=== PATIENT | female | born 1990 | race African-American/Black ===

== ENCOUNTER 2023-09-12 16:18 | Emergency (ER) | payer OTHER, SELFPAY ==
[2023-09-12 16:38] VITALS: BP 168/103; PULSE 100; RESP 18; TEMP 37.9; O2SAT 97; BMI 31.4
[2023-09-12 17:12] LABS: MANUAL DIFF FLAG NO
[2023-09-12 17:14] LABS: Basophils Percent Auto 0.6 % (0-2); Eosinophils Percent Auto 0.3 % (0-4); Hematocrit 34.9 % (37.0-47.0); Imm Gran Abs Auto 0.03 X10*3/uL (0.00-0.03); Imm Gran Pct Auto 0.4 % (0.0-0.4); Lymphocytes Percent Auto 13.8 % (20-40); Mean Corpuscular HGB Conc 31.5 g/dl (31.0-35.0); Mean Corpuscular Hemoglobin 18.7 pg (27.0-33.0); Mean Platelet Volume 9.6 fL (9.4-12.3); Monocytes Absolute Auto 1.1 X10*3/uL (0.1-1.2); Monocytes Percent Auto 14.8 % (2-11); Neutrophils Percent Auto 70.1 % (45-73); Platelet Count 336 X10*3/uL (160-400); Red Blood Count 5.88 X10*6/uL (4.20-5.50); Red Cell Distribution Width 19.9 % (11.0-16.0); White Blood Count 7.2 X10*3/uL (4.8-10.8)
[2023-09-12 17:20] LABS: Mean Corpuscular Volume 59.4 fL (80.0-98.0)
[2023-09-12 17:31] LABS: Alanine Aminotransferase 12 U/L (0-31); Alkaline Phosphatase 78 U/L (39-117); Anion Gap 13 (12-20); Aspartate Amino Transferase 17 U/L (5-31); Bilirubin Direct 0.1 mg/dL (0.0-0.5); Bilirubin Total 0.3 mg/dL (0.0-1.0); Blood Urea Nitrogen 6 mg/dL (9-16); Calcium 8.9 mg/dL (8.4-10.2); Carbon Dioxide 22 mmol/L (22-29); Chloride 106 mmol/L (96-108); Creatinine Clr Calc Pharmacy 121.8; Estimated Glomerular Filt Rate > 60; Glucose Random 108 mg/dL (60-115); Lipase 20 U/L (8-78); Potassium 3.3 mmol/L (3.3-5.1); Sodium 138 mmol/L (135-145); Total Protein 7.1 g/dL (6.5-8.0)
[2023-09-12 17:35] LABS: IDNOW Serial# 08D9AD1C; Strep A Nucleic Acid Negative (Negative)
[2023-09-12 17:58] LABS: Influenza A PCR NEGATIVE (Negative); Influenza B PCR NEGATIVE (Negative); Resp Syncy Virus RNA Qual PCR NEGATIVE (Negative); SARS COV2 PCR INHOUSE POSITIVE (Negative)
--- OUTSIDE RECORDS SUMMARY | 2023-09-12 18:22 | XMS_ITS | Continuity of Care Document ---
Author Organization [facility] ter Address [address] [place] [id number]- Care Team Providers Care Film Washer Name Role Phone Colby BRUMFIELD, Manny Valentine Primary Care Physicia n [facility]counter [facility] Date(s): 12/02/20 - 01/09/[address] [address]- Attending Physician: Fam DIALLO, Maurice Trivedi Admitting Physician: Fam DIALLO, Maurice Trivedi Referring Physician: Grace Ortiz DO Allergies, Adverse Reactions, Alerts Substance Reaction Severity Status NKA Active Immunizations Given and Recorded Vaccine Date Status Refusal Reason influenza virus vaccine, inactivated 12/20/18 Give n Tet/Diphth/Acel, Pertussis (oldterm) 1 02/17/12 Gi chelo influ virus vac, H1N1, live(oldterm) 2 02/27/09 Gi chelo Human Papillomavirus Vaccine 3 02/27/09 Given Human Papillomavirus Vaccine 4 11/28/08 Given Influenza Inactive (IM) (oldterm) 5 11/28/08 Given Gardasil (oldterm) 6 07/06/08 Given Meningococcal Conjugate Vaccine 11/13/05 Given tetanus-diphtheria toxoids (Td) 08/24/02 Given Hepatitis B Vaccine (old term) 03/15/97 Given Hepatitis B Vaccine (old term) 06/09/96 Given Hepatitis B Vaccine (old term) 03/08/96 Given Haemophilus B Conj Vaccine (oldterm) 03/08/96 Give n Haemophilus B Conj Vaccine (oldterm) 02/16/94 Give n Haemophilus B Conj Vaccine (oldterm) 04/10/91 Give n Haemophilus B Conj Vaccine (oldterm) 01/20/91 Give n diphtheria/tetanus/pertussis, acel(DTaP) 4/4/96 Given diphtheria/tetanus/pertussis, acel(DTaP) 05/06/94 Given diphtheria/tetanus/pertussis, acel(DTaP) 02/16/94 Given diphtheria/tetanus/pertussis, acel(DTaP) 04/10/91 Given diphtheria/tetanus/pertussis, acel(DTaP) 01/20/91 Given Measles/Mumps/Rubella Virus Vaccine 01/06/95 Given Measles/Mumps/Rubella Virus Vaccine 02/16/94 Given Poliovirus Vaccine, Inactivated 05/06/94 Given Poliovirus Vaccine, Inactivated 02/16/94 Given Poliovirus Vaccine, Inactivated 04/10/91 Given Poliovirus Vaccine, Inactivated 01/20/91 Given Not Given Vaccine Date Status Refusal Reason pneumococcal 23-valent vaccine 05/04/20 Not Given Permanently Refused 1Admin Note: vis 03/31/11 2Admin Note: vis 2008 given 3Admin Note: vis dated 04/09/06 given 4Admin Note: vis dated 04/09/06 given 5Admin Note: vis 2008-12 given 6Admin Note: VIS 04/09/06 GIVEN Medications clindamycin 1% topical gel 1 application, Topically, 2 times a day, # 30 Gm, 0 Refills, Maintenance, 05/22/20 18:01:00 EDT, Gel, [facility], Partial fill upon patient request if the prescription is for a scheduleII opioid drug., 1 application Topically 2 times a... Start Date: 05/22/20 Stop Date: 05/27/20 Status: Ordered clobetasol 0.05% topical cream See Instructions, Please apply dialy to affected area, # 45 Gm, 1 Refills, Maintenance, 06/25/20 15:41:00 EDT, [facility]/pharmacy #[id number], Partial fill upon patient request if the prescription is for a schedule II opioid drug., Please apply dialy to affected... Start Date: 06/25/20 Status: Ordered ferrous sulfate 325 mg oral tablet 1 tablet = 325 mg, By Mouth, Every other day, # 90 tablet, 0 Refills, Maintenance, 12/18/20 2:31:00EDT, Tablet, [facility]/pharmacy #[id number], Partial fill upon patient request if the prescription is for a schedule II opioid drug., 175, cm, 12/18/20 0:43:00 EDT... Start Date: 12/18/20 Status: Ordered metroNIDAZOLE 500 mg oral tablet 1 tablet = 500 mg, By Mouth, Every 12 hours, # 14 tablet, 0 Refills, Maintenance, 06/26/20 15:21:00EDT, Tablet, [facility]/pharmacy #[id number], Partial fill upon patient request if the prescription is for a schedule II opioid drug., 175, cm, 06/25/20 15:06:00 ED... Start Date: 06/26/20 Stop Date: 07/03/20 Status: Ordered ProAir HFA 90 mcg/inh inhalation aerosol 2 puffs, Inhalation, Every 4 hours, PRN Wheezing/Shortness of Breath, # 1 each, 5 Refills, Maintenance, 05/04/20 10:23:00 EST, Aerosol, [facility], Partial fill upon patient request if the prescription is for a schedule II opioid drug.,... Start Date: 05/04/20 Stop Date: 10/31/20 Status: Ordered Provera 10 mg oral tablet 20 mg, 2, tablet, By Mouth, 3 times a day, # 84 tablet, Refills 0, Tot. Refills 0, Maintenance, 12/18/20 2:30:00 EDT, Route to Pharmacy Electronically, [facility]/pharmacy #[id number], Partial fill upon patient request if the prescription is for a schedule II opio... Start Date: 12/18/20 Stop Date: 01/01/21 Status: Ordered Provera 10 mg oral tablet 10 mg, 1, tablet, By Mouth, 2 times a day, # 20 tablet, Refills 0, Tot. Refills 0, Maintenance, 12/02/20 15:53:00 EDT, Route to Pharmacy Electronically, [facility]/pharmacy #[id number], Partial fill upon patient request if the prescription is for a schedule II opi... Start Date: 12/02/20 Stop Date: 12/12/20 Status: Ordered Symbicort 80mcg/4.5mcg Inhaler 2, puffs, Inhalation, 2 times a day, # 30 each, Refills 0, Tot. Refills 0, Maintenance, 05/04/20 10:25:00 EST, Aerosol, Route to Pharmacy Electronically, [id number], [facility], 175, cm, 05/04/20 8:13:00 Sed[facility] SALEH. Start Date: 05/04/20 Stop Date: 06/03/20 Status: Ordered Problem List Condition Effective Dates Status Health Status Inform ant Asthma(Confirmed) Active Constipation(Confirmed) Active Iron deficiency anemia(Confirmed) Active Sickle cell trait(Confirmed) Active Social History Social History Type Response Smoking Status Never smoker entered on: 04/01/17 Sex
--- OUTSIDE RECORDS SUMMARY | 2023-09-12 18:22 | XMS_ITS | Continuity of Care Document ---
Author Organization [facility] Address [address] [place] [address]- Care Team Providers Care Bank Officer Name Role Phone Colby BRUMFIELD, Manny Valentine Primary Care Physicia n Encounter [facility] Date(s): 12/22/21 - 01/21/[address] [address]- Allergies, Adverse Reactions, Alerts No Known Allergies Immunizations Given and Recorded Vaccine Date Status Refusal Reason influenza virus vaccine, inactivated 12/23/21 Give n influenza virus vaccine, inactivated 01/04/20 Brien rded influenza virus vaccine, inactivated 12/20/18 Give n SARS-CoV-2 mRNA (qbvdziz-nslc-bglei) vax 09/03/21 Recorded SARS-CoV-2 mRNA (ulzzkeo-tyfs-gevuh) vax 08/12/21 Recorded tetanus-diphtheria toxoids (Td) 09/20/16 Recorded tetanus-diphtheria toxoids (Td) 08/24/02 Given Tet/Diphth/Acel, Pertussis (oldterm) 1 02/17/12 Gi chelo influ virus vac, H1N1, live(oldterm) 2 02/27/09 Gi chelo Human Papillomavirus Vaccine 3 02/27/09 Given Human Papillomavirus Vaccine 4 11/28/08 Given Influenza Inactive (IM) (oldterm) 5 11/28/08 Given Gardasil (oldterm) 6 07/06/08 Given Meningococcal Conjugate Vaccine 11/13/05 Given Hepatitis B Vaccine (old term) 03/15/97 Given Hepatitis B Vaccine (old term) 06/09/96 Given Hepatitis B Vaccine (old term) 03/08/96 Given Haemophilus B Conj Vaccine (oldterm) 03/08/96 Give n Haemophilus B Conj Vaccine (oldterm) 02/16/94 Give n Haemophilus B Conj Vaccine (oldterm) 04/10/91 Give n Haemophilus B Conj Vaccine (oldterm) 01/20/91 Give n diphtheria/tetanus/pertussis, acel(DTaP) 06/10/95 Given diphtheria/tetanus/pertussis, acel(DTaP) 05/06/94 Given diphtheria/tetanus/pertussis, acel(DTaP) 02/16/94 Given diphtheria/tetanus/pertussis, acel(DTaP) 04/10/91 Given diphtheria/tetanus/pertussis, acel(DTaP) 01/20/91 Given Measles/Mumps/Rubella Virus Vaccine 01/06/95 Given Measles/Mumps/Rubella Virus Vaccine 02/16/94 Given Poliovirus Vaccine, Inactivated 05/06/94 Given Poliovirus Vaccine, Inactivated 02/16/94 Given Poliovirus Vaccine, Inactivated 04/10/91 Given Poliovirus Vaccine, Inactivated 01/20/91 Given Not Given Vaccine Date Status Refusal Reason influenza virus vaccine, inactivated 03/02/21 Not Given Patient Refuses pneumococcal 23-valent vaccine 05/04/20 Not Given Permanently Refused 1Admin Note: vis 03/31/11 2Admin Note: vis 2008 given 3Admin Note: vis dated 04/09/06 given 4Admin Note: vis dated 04/09/06 given 5Admin Note: vis 2008-12 given 6Admin Note: VIS 04/09/06 GIVEN Medications Blood Pressure Monitor See Instructions, # 1 each, Maintenance, check daily, 01/02/22 12:17:00 EDT, Supply Start Date: 01/02/22 Status: Ordered ferrous sulfate 325 mg oral tablet 1 tablet, By Mouth, Every other day, # 90 tablet, 0 Refills, [id number], 175, cm, 03/03/21 16:44:00 EST, Height, 84, kg, 03/01/21 15:38:00 EST, Dry Weight Start Date: 06/09/21 Status: Ordered metronidazole topical 0.75% gel with applicator 1 applicator, Vaginally, Daily at bedtime, for 5 days, # 70 Gm, 0 Refills, Acute 01/24/22 8:02:00 EST, 01/19/22 8:02:00 EST, Gel, [facility]/pharmacy #[id number], Partial fill upon patient request if the prescription is for a schedule II opioid drug., 1 applicator... Start Date: 01/19/22 Stop Date: 01/24/22 Status: Ordered ProAir HFA 90 mcg/inh inhalation aerosol 2 puffs, Inhalation, Every 4 hours, PRN Wheezing/Shortness of Breath, # 1 each, 5 Refills, Maintenance, 05/04/20 10:23:00 EST, Aerosol, [facility], Partial fill upon patient request if the prescription is for a schedule II opioid drug.,... Start Date: 05/04/20 Stop Date: 10/31/20 Status: Ordered Symbicort 80mcg/4.5mcg Inhaler 2, puffs, Inhalation, 2 times a day, # 30 each, Refills 0, Tot. Refills 0, Maintenance, 05/04/20 10:25:00 EST, Aerosol, Route to Pharmacy Electronically, [id number], [facility], 175, cm, 05/04/20 8:13:00 EST, He... Start Date: 05/04/20 Stop Date: 06/03/20 Status: Ordered Valtrex 500 mg oral tablet 500 mg, 1, tablet, By Mouth, 2 times a day, for 3 days, # 6 tablet, Refills 5, Tot. Refills 5, Acute 02/02/22 20:14:00 EST, 01/15/22 20:14:00 EST, Route to Pharmacy Electronically, [facility]/pharmacy #[id number], Partial fill upon patient request if the prescript... Start Date: 01/15/22 Stop Date: 02/02/22 Status: Ordered Problem List Condition Confirmation Course Effective Dates Status Health St [facility] Informant Asthma Confirmed Active Constipation Confirmed Active Genital herpes Confirmed Active Hypertension Confirmed Active Iron deficiency anemia Confirmed Active Obese class I Confirmed Active [facility] Care Management [facility] ShivaniRadha [phone] Confirmed Active Sickle cell trait Confirmed Active Social History Social History Type Response Smoking Status Never (less than 100 in lifetime) entered on: 03/01/21 Sex Patient Care team information Care Team Personnel Name: Isabella Phelan RN Position: [facility] Nurse Member Role: Primary Care Nurse Name: Davey Rojas RN Position: S RN Member Role: Primary Care Nurse Name: Manny Bowman NP Position: [facility] Associate Professional Member Role: PCP Address: Address: [address] [place] [address]- Name: Verna Mireles RN Position: S RN Member Role: Primary Care Nurse Care Team Related Persons Name: ROZ CALHOUN Address: home [address] [place] [address] Name: STEPHANIE MONSIVAIS Address: home UNKNOWN
--- OUTSIDE RECORDS SUMMARY | 2023-09-12 18:22 | XMS_ITS | Continuity of Care Document ---
Author Organization [facility] Address [address] [place] [address]- Care Team Providers Care Manager Research Name Role Phone Colby BRUMFIELD, Manny Valentine Primary Care Physicia n [facility] Date(s): 01/24/21 - 02/23/[address] [address]- Allergies, Adverse Reactions, Alerts Substance Reaction Severity [...] 0 Refills, Maintenance, 05/22/20 18:01:00 EDT, Gel, [facility], Partial fill upon patient request if the prescription is for a scheduleII opioid drug., 1 application Topically 2 times a... Start Date: 05/22/20 Stop Date: 05/27/20 Status: Ordered clobetasol 0.05% topical cream See Instructions, Please apply dialy to affected area, # 45 Gm, 1 Refills, Maintenance, 06/25/20 15:41:00 EDT, [facility]/pharmacy #[id number], Partial fill upon patient request if the prescription is for a schedule II opioid drug., Please apply dialy to affected... Start Date: 06/25/20 Status: Ordered ferrous sulfate 325 mg oral tablet 1 tablet = 325 mg, By Mouth, Every other day, # 90 tablet, 0 Refills, Maintenance, 12/18/20 2:31:00EDT, Tablet, [facility]/pharmacy #[id number], Partial fill upon patient request if the prescription is for a schedule II opioid drug., 175, cm, 12/18/20 0:43:00 EDT... Start Date: 12/18/20 Status: Ordered metroNIDAZOLE 500 mg oral tablet 1 tablet = 500 mg, By Mouth, Every 12 hours, # 14 tablet, 0 Refills, Maintenance, 06/26/20 15:21:00EDT, Tablet, [facility]/pharmacy #[id number], Partial fill upon patient request if the prescription is for a schedule II opioid drug., 175, cm, 06/25/20 15:06:00 ED... Start Date: 06/26/20 Stop Date: 07/03/20 Status: Ordered ProAir HFA 90 mcg/inh inhalation aerosol 2 puffs, Inhalation, Every 4 hours, PRN Wheezing/Shortness of Breath, # 1 each, 5 Refills, Maintenance, 05/04/20 10:23:00 EST, Aerosol, [facility], Partial fill upon patient request if the prescription is for a schedule II opioid drug.,... Start Date: 05/04/20 Stop Date: 10/31/20 Status: Ordered Provera 10 mg oral tablet 20 mg, 2, tablet, By Mouth, 3 times a day, # 84 tablet, Refills 0, Tot. Refills 0, Maintenance, 12/18/20 2:30:00 EDT, Route to Pharmacy Electronically, [facility]/pharmacy #[id number], Partial fill upon patient request if the prescription is for a schedule II opio... Start Date: 12/18/20 Stop Date: 01/01/21 Status: Ordered Provera 10 mg oral tablet 10 mg, 1, tablet, By Mouth, 2 times a day, # 20 tablet, Refills 0, Tot. Refills 0, Maintenance, 12/02/20 15:53:00 EDT, Route to Pharmacy Electronically, [facility]/pharmacy #[id number], Partial fill upon patient request if the prescription is for a schedule II opi... Start Date: 12/02/20 Stop Date: 12/12/20 Status: Ordered Symbicort 80mcg/4.5mcg Inhaler 2, puffs, Inhalation, 2 times a day, # 30 each, Refills 0, Tot. Refills 0, Maintenance, 05/04/20 10:25:00 EST, Aerosol, Route to Pharmacy Electronically, [id number], [facility], 175, cm, 05/04/20 8:13:00 Sed[facility] SALEH. Start Date: 05/04/20 Stop Date: 06/03/20 Status: Ordered Problem List Condition Effective Dates Status Health Status Inform ant Asthma(Confirmed) Active Constipation(Confirmed) Active Iron deficiency anemia(Confirmed) Active [facility] Care Management [facility] , Radha Medardo [phone](Confirmed) Active Sickle cell trait(Confirmed) Active Social History Social History Type Response Smoking Status Never smoker entered on: 04/01/17 Sex
--- OUTSIDE RECORDS SUMMARY | 2023-09-12 18:22 | XMS_ITS | Continuity of Care Document ---
Author Organization [facility] Address [address] [place] [address]- Care Team Providers Care Mortuary Operations Manager Name Role Phone Colby BRUMFIELD, Manny Valentine Primary Care Physicia n Encounter [facility] AC[facility] R [id number] Date(s): 08/10/22 - 09/09/[address] [address]- Encounter Diagnosis Psychosis 298.9(Discharge Diagnosis) - 04/13/13 Attending Physician: Admtr, Ar8 Allergies, Adverse Reactions, Alerts No Known Allergies Immunizations Given and Recorded Vaccine Date Status Refusal Reason SARS-CoV-2 mRNA (tlagvnc-snat-zfxqp) vax 1 12/25/21 Recorded SARS-CoV-2 mRNA (sdkvmac-azac-hbplr) vax 09/03/21 Recorded SARS-CoV-2 mRNA (uxzjlfl-xwpf-ptwja) vax 08/12/21 Recorded influenza virus vaccine, inactivated 12/23/21 Give n influenza virus vaccine, inactivated 01/04/20 Brien rded influenza virus vaccine, inactivated 12/20/18 Give n tetanus-diphtheria toxoids (Td) 09/20/16 Recorded tetanus-diphtheria toxoids (Td) 08/24/02 Given Tet/Diphth/Acel, Pertussis (oldterm) 2 02/17/12 Gi chelo influ virus vac, H1N1, live(oldterm) 3 02/27/09 Gi chelo Human Papillomavirus Vaccine 4 02/27/09 Given Human Papillomavirus Vaccine 5 11/28/08 Given Influenza Inactive (IM) (oldterm) 6 11/28/08 Given Gardasil (oldterm) 7 07/06/08 Given Meningococcal Conjugate Vaccine 11/13/05 Given [...] 23-valent vaccine 05/04/20 Not Given Permanently Refused 1Result Comment: [facility] 2Admin Note: vis 03/31/11 3Admin Note: vis 2008 given 4Admin Note: vis dated 04/09/06 given 5Admin Note: vis dated 04/09/06 given 6Admin Note: vis 2008-12 given 7Admin Note: VIS 04/09/06 GIVEN Medications Blood Pressure Monitor See Instructions, # 1 each, Maintenance, check daily, 01/02/22 12:17:00 EDT, Supply Start Date: 01/02/22 Status: Ordered ferrous sulfate 325 mg oral tablet 1 tablet, By Mouth, Every other day, # 90 tablet, 0 Refills, [id number], 175, cm, 03/03/21 16:44:00 EST, Height, 84, kg, 03/01/21 15:38:00 EST, Dry Weight Start Date: 06/09/21 Status: Ordered fluconazole 150 mg oral tablet 1 tablet = 150 mg, By Mouth, Every week, # 4 tablet, 0 Refills, Acute 07/06/23 22:22:00 EDT, 08/10/22 12:22:00 EDT, Tablet, [facility]/pharmacy #[id number], Partial fill upon patient request if the prescription is for a schedule II opioid drug., 175, cm, 08/10/22... Start Date: 08/10/22 Stop Date: 09/10/22 Status: Ordered ProAir HFA 90 mcg/inh inhalation aerosol 2 puffs, Inhalation, Every 4 hours, PRN Wheezing/Shortness of Breath, # 1 each, 5 Refills, Maintenance, 05/04/20 10:23:00 EST, Aerosol, [facility], Partial fill upon patient request if the prescription is for a schedule II opioid drug.,... Start Date: 05/04/20 Stop Date: 10/31/20 Status: Ordered Symbicort 80mcg/4.5mcg Inhaler 2, puffs, Inhalation, 2 times a day, # 30 each, Refills 0, Tot. Refills 0, Maintenance, 05/04/20 10:25:00 EST, Aerosol, Route to Pharmacy Electronically, [id number], [facility], 175, cm, 05/04/20 8:13:00 EST, He... Start Date: 05/04/20 Stop Date: 06/03/20 Status: Ordered Problem List Condition Confirmation Course Effective Dates Status Health St [facility] Informant Asthma Confirmed Active Constipation Confirmed Active Genital herpes Confirmed Active Hypertension Confirmed Active Iron deficiency anemia Confirmed Active Obese class I Confirmed [facility] [phone] Confirmed Active Sickle cell trait Confirmed Active Vital Signs Most recent to oldest [Reference Range]: 1 Height 169.00 cm (02/16/08 11:36 AM) Social History Social History Type Response Smoking Status Never (less than 100 in lifetime) entered on: 03/01/21 Sex Radiology * Event Display: Non Radiology Results Authored Date: [id number] Patient Care team information Care Team Personnel Name: Isabella Phelan RN Position: [facility] Nurse Member Role: Primary Care Nurse Name: Davey Rojas RN Position: [facility] RN Member Role: Primary Care Nurse Name: Manny Bowman NP Position: [facility] PCO Associate Professional Member Role: PCP Address: Address: [address] [place] [address]- Name: Verna Mireles RN Position: [facility] RN Member Role: Primary Care Nurse Care Team Related Persons Name: ROZ CALHOUN Address: [address] [place] [address] Name: STEPHANIE MONSIVAIS Address: home UNKNOWN
--- OUTSIDE RECORDS SUMMARY | 2023-09-12 18:22 | XMS_ITS | Continuity of Care Document ---
Author Organization [facility] Address [address] [place] [address]- Care Team Providers Care Timber Inspector Name Role Phone Manny Bowman NP Primary Care Physicia n Encounter [facility] [place] ACCT R [id number] Date(s): 03/17/19 - 03/27/[address] [address]- [facility] Encounter Diagnosis Psychosis 298.9(Discharge Diagnosis) - 04/13/13 Attending Physician: Admtr, Ar8 Allergies, Adverse Reactions, Alerts Substance Reaction Severity [...] 04/10/91 Given Poliovirus Vaccine, Inactivated 01/20/91 Given 1Admin Note: vis 03/31/11 2Admin Note: vis 2008 given 3Admin Note: vis dated 04/09/06 given 4Admin Note: vis dated 04/09/06 given 5Admin Note: vis 2008-12 given 6Admin Note: VIS 04/09/06 GIVEN Medications Albuterol 0.083% inhalation derek 2.5 mg, Inhalation, Once, lot # [id number] exp:04/2018 manuf: Nephron, Refills 0, Maintenance, 189:12:22 EDT Start Date: 12/15/17 Stop Date: 12/29/17 Status: Ordered albuterol 90 mcg/inh inhalation powder 1 puffs = 90 mcg, Inhalation, Every 4 hours, PRN Wheezing/Shortness of Breath, # 1 each, 5 Refills,Maintenance, 07/07/17 13:54:44 EDT, Powder, 1 puffs Inhalation Every 4 hours,x30 days,PRN:Wheezing/Shortness of Breath Start Date: 07/07/17 Stop Date: 01/03/18 Status: Ordered albuterol CFC free 90 mcg/inh inhalation aerosol 2, puffs, Inhalation, 4 times a day, PRN, # 8.5 Gm, Refills 3, Tot. Refills 3, Maintenance, 02/04/19 11:04:55 EST, Aerosol, Print Requisition Start Date: 02/04/19 Status: Ordered Benadryl 25 mg oral capsule 1 capsule = 25 mg, By Mouth, 3 times a day, PRN for itching, for 14 days, # 100 capsule, 0 Refills,Acute 03/31/19 9:55:00 EST, 03/17/19 9:55:00 EST, Capsule, [facility]/pharmacy #[id number], 175, cm, 03/17/19 9:42:00 EST, Height Start Date: 03/17/19 Stop Date: 03/31/19 Status: Ordered calamine topical - lotion 1 applicator, Topically, Every 4 hours, for 14 days, # 240 mL, 0 Refills, Acute 03/31/19 9:54:00 EST, 03/17/19 9:54:00 EST, [facility]/pharmacy #[id number], 1 applicator Topically Every 4 hours,x14 days, 175, cm,03/17/19 9:42:00 EST, Height Start Date: 03/17/19 Stop Date: 03/31/19 Status: Ordered cetirizine 10 mg oral tablet 1 tablet = 10 mg, By Mouth, Daily, # 30 tablet, 1 Refills, Maintenance, 07/01/17 15:30:38 EDT, Tablet Start Date: 07/01/17 Status: Ordered fluticasone 27.5 mcg/inh nasal spray 2 sprays, Nares, Both, Daily, PRN for allergy symptoms, # 10 Gm, 0 Refills, Maintenance, 05/10/17 12:07:44, [place], 2 sprays Nares, Both Daily,PRN:for allergy symptoms Start Date: 05/10/17 Status: Ordered ibuprofen 600 mg oral tablet 600 mg, 1, tablet, By Mouth, Every 6 hours, # 30 tablet, Refills 0, Tot. Refills 0, Maintenance, 01/18/18 12:35:22 EST, Print Requisition Start Date: 01/18/18 Status: Ordered influenza virus vaccine - intramuscular suspension 0.5 mL, Intramuscular, Once, # 1 each, 0 Refills, Soft Stop, 12/20/18 9:27:15 EDT, Suspension Start Date: 12/20/18 Status: Ordered NuvaRing 0.015 mg-0.120 mg vaginal ring See Instructions, 1 each Vaginally, # 3 each, 3 Refills, Maintenance, 10/20/18 17:52:56 EDT, 1 eachVaginally Start Date: 10/20/18 Status: Ordered Replens vaginal gel 1 application, Topically, Every other day, PRN for dry skin, use 2-3 times per week to affected area until symptoms resolve, # 35 Gm, 0 Refills, Maintenance, 11/23/18 10:14:06 EDT, Gel, 1 applicationTopically Every other day,PRN:for dry skin,Instr:us... Start Date: 11/23/18 Status: Ordered spacer spacer, See Instructions, # 1 each, Refills 0, Tot. Refills 0, Maintenance, Dx: Asthma. Use with albuterol inhaler., 07/07/17 13:55:59 EDT, Compound Start Date: 07/07/17 Status: Ordered triamcinolone 0.1% topical cream 1 application, Topically, 2 times a day, for 14 days, # 15 Gm, 0 Refills, Acute 03/31/19 14:00:00 EST, 03/17/19 14:00:00 EST, Cream, [facility]/pharmacy #[id number], 1 application Topically 2 times a day,x14 days, 175, cm, 03/17/19 9:42:00 EST, Height Start Date: 03/17/19 Stop Date: 03/31/19 Status: Ordered Tylenol 325 mg oral capsule 3 capsules, By Mouth, Once, Lot #[id number] Exp. 03/2018, 0 Refills, Maintenance, 04/01/17 11:00:00 Start Date: 04/01/17 Stop Date: 05/05/17 Status: Ordered Valium 5 mg oral tablet 5 mg, 1, tablet, By Mouth, 2 times a day, PRN, # 12 tablet, Refills 0, Tot. Refills 0, Maintenance,Pain , Moderate, 01/18/18 12:35:26 EST, Print Requisition Start Date: 01/18/18 Status: Ordered Problem List Condition Effective Dates Status Health Status Inform ant Asthma(Confirmed) Active Constipation(Confirmed) Active Iron deficiency anemia(Confirmed) Active Care Management [facility] [phone](Confirmed) Active Sickle cell trait(Confirmed) Active Vital Signs Most recent to oldest [Reference Range]: 1 Height 169.00 cm (02/16/08 11:36 AM) Social History Social History Type Response Smoking Status Never smoker entered on: 04/01/17 Sex
--- OUTSIDE RECORDS SUMMARY | 2023-09-12 18:22 | XMS_ITS | Continuity of Care Document ---
Author Organization [facility] Address [address] [place] [address]- Care Team Providers Care Director Of Food And Nutrition Services Name Role Phone Colby BRUMFIELD, Manny Valentine Primary Care Physicia n Encounter [facility] ACCT R [id number] Date(s): 09/12/20 - 10/12/[address] [address]- Encounter Diagnosis Psychosis 298.9(Discharge Diagnosis) - 04/13/13 [...] 0 Refills, Maintenance, 05/22/20 18:01:00 EDT, Gel, [facility], Partial fill upon patient request if the prescription is for a scheduleII opioid drug., 1 application Topically 2 times a... Start Date: 05/22/20 Stop Date: 05/27/20 Status: Ordered clobetasol 0.05% topical cream See Instructions, Please apply dialy to affected area, # 45 Gm, 1 Refills, Maintenance, 06/25/20 15:41:00 EDT, [facility]/pharmacy #[id number], Partial fill upon patient request if the prescription is for a schedule II opioid drug., Please apply dialy to affected... Start Date: 06/25/20 Status: Ordered metroNIDAZOLE 500 mg oral tablet 1 tablet = 500 mg, By Mouth, Every 12 hours, # 14 tablet, 0 Refills, Maintenance, 06/26/20 15:21:00EDT, Tablet, [facility]/pharmacy #[id number], Partial fill upon patient request if the prescription is for a schedule II opioid drug., 175, cm, 06/25/20 15:06:00 ED... Start Date: 06/26/20 Stop Date: 07/03/20 Status: Ordered ProAir HFA 90 mcg/inh inhalation aerosol 2 puffs, Inhalation, Every 4 hours, PRN Wheezing/Shortness of Breath, # 1 each, 5 Refills, Maintenance, 05/04/20 10:23:00 EST, Aerosol, [facility], Partial fill upon patient request if the prescription is for a schedule II opioid drug.,... Start Date: 05/04/20 Stop Date: 10/31/20 Status: Ordered Symbicort 80mcg/4.5mcg Inhaler 2, puffs, Inhalation, 2 times a day, # 30 each, Refills 0, Tot. Refills 0, Maintenance, 05/04/20 10:25:00 EST, Aerosol, Route to Pharmacy Electronically, [id number], [facility], 175, cm, 05/04/20 8:13:00 EST, He... Start Date: 05/04/20 Stop Date: 06/03/20 Status: Ordered Problem List Condition Effective Dates Status Health Status Inform ant Asthma(Confirmed) Active Constipation(Confirmed) Active Iron deficiency anemia(Confirmed) Active Care Management [facility] [phone](Confirmed) Active Sickle cell trait(Confirmed) Active Vital Signs Most recent to oldest [Reference Range]: 1 Height 169.00 cm (02/16/08 11:36 AM) Social History Social History Type Response Smoking Status Never smoker entered on: 04/01/17 Sex
--- OUTSIDE RECORDS SUMMARY | 2023-09-12 18:22 | XMS_ITS | Continuity of Care Document ---
Author Organization [facility] Address [address] [place] [address]- Care Team Providers Care Laborer Rags Name Role Phone Colby BRUMFIELD, Manny Valentine Primary Care Physicia n Encounter [facility] Date(s): 01/08/22 - 02/07/[address] [address]- Allergies, Adverse Reactions, Alerts No Known Allergies Immunizations Given and Recorded Vaccine Date Status Refusal Reason SARS-CoV-2 mRNA (sxyjmtx-mzsx-uvwgv) vax 1 12/25/21 Recorded SARS-CoV-2 mRNA (fvqimvu-ydxt-vqsmf) vax 09/03/21 Recorded SARS-CoV-2 mRNA (hodrmrt-knss-kiova) vax 08/12/21 Recorded influenza virus vaccine, inactivated [...] other day, # 90 tablet, 0 Refills, [id number], 175, cm, 03/03/21 16:44:00 EST, Height, 84, kg, 03/01/21 15:38:00 EST, Dry Weight Start Date: 06/09/21 Status: Ordered ProAir HFA 90 mcg/inh inhalation aerosol 2 puffs, Inhalation, Every 4 hours, PRN Wheezing/Shortness of Breath, # 1 each, 5 Refills, Maintenance, 05/04/20 10:23:00 EST, Aerosol, [facility], Partial fill upon patient request if the prescription is for a schedule II opioid drug.,... Start Date: 05/04/20 Stop Date: 10/31/20 Status: Ordered Symbicort 80mcg/4.5mcg Inhaler 2, puffs, Inhalation, 2 times a day, # 30 each, Refills 0, Tot. Refills 0, Maintenance, 05/04/20 10:25:00 EST, Aerosol, Route to Pharmacy Electronically, [id number], [facility], 175, cm, 05/04/20 8:13:00 EST, He... Start Date: 05/04/20 Stop Date: 06/03/20 Status: Ordered Problem List Condition Confirmation Course Effective Dates Status Health St [facility] Informant Asthma Confirmed Active Constipation Confirmed Active Genital herpes Confirmed Active Hypertension Confirmed Active Iron deficiency anemia Confirmed Active Obese class I Confirmed Active [facility] Care Management [facility] Rahda Batres [phone] Confirmed Active Sickle cell trait Confirmed Active Social History Social History Type Response Smoking Status Never (less than 100 in lifetime) entered on: 03/01/21 Sex Patient Care team information Care Team Personnel Name: Isabella Phelan RN Position: [facility] AMB Nurse Member Role: Primary Care Nurse Name: Dvaey oRjas RN Position: [facility] RN Member Role: Primary Care Nurse Name: Manny Bowman NP Position: [facility] PCO Associate Professional Member Role: PCP Address: Address: [address] [place] [address]- Name: Verna Mireles RN Position: [facility] RN Member Role: Primary Care Nurse Care Team Related Persons Name: ROZ CALHOUN Address: [address] [place] [address] Name: STEPHANIE MONSIVAIS Address: home UNKNOWN
--- OUTSIDE RECORDS SUMMARY | 2023-09-12 18:22 | XMS_ITS | Continuity of Care Document ---
Author Organization [facility] Address [address] [place] [address]- Care Team Providers Care Inventory Control Manager Name Role Phone Colby BRUMFIELD, Manny Valentine Primary Care Physicia n [place] [facility] 06/20[place] - 08/09/[address] [address]- Attending Physician: Not on Staff, Attending MD Allergies, Adverse Reactions, Alerts No Known Allergies Immunizations Given and Recorded Vaccine Date Status Refusal Reason influenza virus vaccine, inactivated 01/04/20 Brien rded [...] 0 Refills, Maintenance, 05/22/20 18:01:00 EDT, Gel, [facility], Partial fill upon patient request if the prescription is for a scheduleII opioid drug., 1 application Topically 2 times a... Start Date: 05/22/20 Stop Date: 05/27/20 Status: Ordered clobetasol 0.05% topical cream See Instructions, Please apply dialy to affected area, # 45 Gm, 1 Refills, Maintenance, 06/25/20 15:41:00 EDT, [facility]/pharmacy #[id number], Partial fill upon patient request if the prescription is for a schedule II opioid drug., Please apply dialy to affected... Start Date: 06/25/20 Status: Ordered ferrous sulfate 325 mg oral tablet 1 tablet, By Mouth, Every other day, # 90 tablet, 0 Refills, [id number], 175, cm, 03/03/21 16:44:00 EST, Height, 84, kg, 03/01/21 15:38:00 EST, Dry Weight Start Date: 06/09/21 Status: Ordered metroNIDAZOLE 500 mg oral tablet 1 tablet = 500 mg, By Mouth, Every 12 hours, # 14 tablet, 0 Refills, Maintenance, 04/12/21 9:59:00 EST, Tablet, [facility]/pharmacy #[id number], Partial fill upon patient request if the prescription is for a schedule II opioid drug., 175, cm, 03/03/21 16:44:00 EST... Start Date: 04/12/21 Stop Date: 04/19/21 Status: Ordered ProAir HFA 90 mcg/inh inhalation aerosol 2 puffs, Inhalation, Every 4 hours, PRN Wheezing/Shortness of Breath, # 1 each, 5 Refills, Maintenance, 05/04/20 10:23:00 EST, Aerosol, [facility], Partial fill upon patient request if the prescription is for a schedule II opioid drug.,... Start Date: 05/04/20 Stop Date: 10/31/20 Status: Ordered Provera 10 mg oral tablet 20 mg, 2, tablet, By Mouth, 3 times a day, # 84 tablet, Refills 0, Tot. Refills 0, Maintenance, 12/18/20 2:30:00 EDT, Route to Pharmacy Electronically, [facility]/pharmacy #[id number], Partial fill upon patient request if the prescription is for a schedule II opio... Start Date: 12/18/20 Stop Date: 01/01/21 Status: Ordered Provera 10 mg oral tablet 10 mg, 1, tablet, By Mouth, 2 times a day, # 20 tablet, Refills 0, Tot. Refills 0, Maintenance, 12/02/20 15:53:00 EDT, Route to Pharmacy Electronically, [facility]acy #[id number], Partial fill upon patient request if the prescription is for a schedule II opi... Start Date: 12/02/20 Stop Date: 12/12/20 Status: Ordered Symbicort 80mcg/4.5mcg Inhaler 2, puffs, Inhalation, 2 times a day, # 30 each, Refills 0, Tot. Refills 0, Maintenance, 05/04/20 10:25:00 EST, Aerosol, Route to Pharmacy Electronically, [id number], [facility], 175, cm, 05/04/20 8:13:00 ESTHe... Start Date: 05/04/20 Stop Date: 06/03/20 Status: Ordered Tylenol 325 mg oral tablet 975 mg, 3, tablet, By Mouth, Every 6 hours, PRN, Refills 0, Maintenance, Pain , Mild, 03/03/21 15:42:00 EST, Partial fill upon patient request if the prescription is for a schedule II opioid drug. Start Date: 03/03/21 Status: Ordered Problem List Condition Effective Dates Status Health Status Inform ant Asthma(Confirmed) Active Constipation(Confirmed) Active Iron deficiency anemia(Confirmed) Active [facility] Care Management [facility] Radha Parrish [phone](Confirmed) Active Sickle cell trait(Confirmed) Active Social History Social History Type Response Smoking Status Never (less than 100 in lifetime) entered on: 03/01/21 Sex
--- OUTSIDE RECORDS SUMMARY | 2023-09-12 18:22 | XMS_ITS | Continuity of Care Document ---
Author Organization [facility] Address [address] [place] [address]- Care Team Providers Care Sales And Distribution Clerk Name Role Phone Colby BRUMFIELD, Manny Valentine Primary Care Physicia n Encounter [facility] ACCT R [id number] Date(s): 07/19/20 - 08/18/[address] [address]- Encounter Diagnosis Psychosis 298.9(Discharge Diagnosis) - 04/13/13 [...] 0 Refills, Maintenance, 05/22/20 18:01:00 EDT, Gel, [facility], Partial fill upon patient request if the prescription is for a scheduleII opioid drug., 1 application Topically 2 times a... Start Date: 05/22/20 Stop Date: 05/27/20 Status: Ordered clobetasol 0.05% topical cream See Instructions, Please apply dialy to affected area, # 45 Gm, 1 Refills, Maintenance, 06/25/20 15:41:00 EDT, [facility]/pharmacy #[id number], Partial fill upon patient request if the prescription is for a schedule II opioid drug., Please apply dialy to affected... Start Date: 06/25/20 Status: Ordered Flagyl 500 mg oral tablet 1 tablet = 500 mg, By Mouth, Every 12 hours, for 7 days, # 14 tablet, 0 Refills, Acute 08/23/20 13:24:00 EDT, 08/16/20 13:24:00 EDT, [facility], Partial fill upon patient request if theprescription is for a schedule II opioid drug., 175... Start Date: 08/16/20 Stop Date: 08/23/20 Status: Ordered metroNIDAZOLE 500 mg oral tablet 1 tablet = 500 mg, By Mouth, Every 12 hours, # 14 tablet, 0 Refills, Maintenance, 06/26/20 15:21:00EDT, Tablet, [facility]/pharmacy #[id number], Partial fill upon patient request if the prescription is for a schedule II opioid drug., 175, cm, 06/25/20 15:06:00 ED... Start Date: 06/26/20 Stop Date: 07/03/20 Status: Ordered metronidazole topical 0.75% gel with applicator 1 applicator, Vaginally, Daily at bedtime, for 5 days, # 70 Gm, 0 Refills, Acute 08/21/20 14:32:00 EDT, 08/16/20 14:32:00 EDT, Gel, [facility], Partial fill upon patient request if the prescription is for a schedule II opioid drug., 1 ap... Start Date: 08/16/20 Stop Date: 08/21/20 Status: Ordered ProAir HFA 90 mcg/inh inhalation aerosol 2 puffs, Inhalation, Every 4 hours, PRN Wheezing/Shortness of Breath, # 1 each, 5 Refills, Maintenance, 05/04/20 10:23:00 EST, Aerosol, [facility], Partial fill upon patient request if the prescription is for a schedule II opioid drug.,... Start Date: 05/04/20 Stop Date: 10/31/20 Status: Ordered Symbicort 80mcg/4.5mcg Inhaler 2, puffs, Inhalation, 2 times a day, # 30 each, Refills 0, Tot. Refills 0, Maintenance, 05/04/20 10:25:00 EST, Aerosol, Route to Pharmacy Electronically, [id number], [facility], 175, cm, 05/04/20 8:13:00 EST, He... Start Date: 05/04/20 Stop Date: 06/03/20 Status: Ordered Problem List Condition Effective Dates Status Health Status Inform ant Asthma(Confirmed) Active Constipation(Confirmed) Active Iron deficiency anemia(Confirmed) Active Care Management [facility] [phone](Confirmed) Active Sickle cell trait(Confirmed) Active Vital Signs Most recent to oldest [Reference Range]: 1 Height 169.00 cm (02/16/08 11:36 AM) Social History Social History Type Response Smoking Status Never smoker entered on: 04/01/17 Sex
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
--- OUTSIDE RECORDS SUMMARY | 2023-09-12 18:23 | XMS_ITS | Continuity of Care Document ---
Author Organization [facility] Address [address] [place] [address]- Care Team Providers Care Polymerization Oven Operator Name Role Phone Manny Bowman NP Primary Care Physicia n [facility] Date(s): 03/17/19 - 04/30/[address] [address]- [facility] Attending Physician: Manny Bowman NP Admitting Physician: Manny Bowman NP Referring Physician: Manny Bowman NP Allergies, Adverse Reactions, Alerts Substance Reaction Severity [...] given 6Admin Note: VIS 04/09/06 GIVEN Medications albuterol 90 mcg/inh inhalation powder 1 puffs = 90 mcg, Inhalation, Every 4 hours, PRN Wheezing/Shortness of Breath, for 30 days, # 1 each, 5 Refills, Hard Stop 10/08/19 11:19:00 EDT, 04/11/19 11:19:00 EST, Powder, [facility]/pharmacy #[id number], 175, cm, 04/11/19 10:26:00 EST, Height Start Date: 04/11/19 Stop Date: 10/08/19 Status: Ordered albuterol 90 mcg/inh inhalation powder 1 puffs = 90 mcg, Inhalation, Every 4 hours, PRN Wheezing/Shortness of Breath, # 1 each, 5 Refills,Maintenance, 10/08/19 11:19:00 EDT, Powder, [facility]/pharmacy #[id number], 1 puffs Inhalation Every 4 hours,x30 days,PRN:Wheezing/Shortness of Breath, 175, cm, 02... Start Date: 10/08/19 Stop Date: 04/05/20 Status: Ordered albuterol CFC free 90 mcg/inh inhalation aerosol 2, puffs, Inhalation, 4 times a day, PRN, # 8.5 Gm, Refills 3, Tot. Refills 3, Maintenance, 02/04/19 11:04:55 EST, Aerosol, Print Requisition Start Date: 02/04/19 Status: Ordered cetirizine 10 mg oral tablet 1 tablet = 10 mg, By Mouth, Daily, # 10 tablet, 0 Refills, Maintenance, 04/21/19 10:46:00 EST, Tablet, [facility]/pharmacy #[id number], 175, cm, 04/11/19 10:26:00 EST, Height Start Date: 04/21/19 Stop Date: 05/01/19 Status: Ordered influenza virus vaccine - intramuscular suspension 0.5 mL, Intramuscular, Once, # 1 each, 0 Refills, Soft Stop, 12/20/18 9:27:15 EDT, Suspension Start Date: 12/20/18 Status: Ordered NuvaRing 0.015 mg-0.120 mg vaginal ring See Instructions, 1 each Vaginally, # 3 each, 3 Refills, Maintenance, 10/20/18 17:52:56 EDT, 1 eachVaginally Start Date: 10/20/18 Status: Ordered permethrin 5% topical cream 1 application, Topically, Once, to skin head to feet, remove by washing after 8 to 14 hours, # 60 Gm, 0 Refills, Soft Stop, 04/14/19 9:39:00 EST, Cream, [facility]/pharmacy #[id number], 1 application Topically Once,Instr:to skin head to feet, remove by washing aft... Start Date: 04/14/19 Status: Ordered spacer spacer, See Instructions, # 1 each, Refills 0, Tot. Refills 0, Maintenance, Dx: Asthma. Use with albuterol inhaler., 07/07/17 13:55:59 EDT, Compound Start Date: 07/07/17 Status: Ordered triamcinolone 0.1% topical cream 1 application, Topically, 2 times a day, for 14 days, # 60 Gm, 1 Refills, Acute 06/30/19 17:38:00 EDT, 06/02/19 17:38:00 EDT, Cream, [facility]/pharmacy #[id number], 1 application Topically 2 times a day,x14 days, 175, cm, 04/11/19 10:26:00 EST, Height Start Date: 06/02/19 Stop Date: 06/30/19 Status: Ordered triamcinolone 0.1% topical cream 1 application, Topically, 2 times a day, for 14 days, # 60 Gm, 1 Refills, Acute 07/28/19 17:38:00 EDT, 06/30/19 17:38:00 EDT, Cream, [facility]acy [id number], 1 application Topically 2 times a day,x14 days, 175, cm, 04/11/19 10:26:00 EST, Height Start Date: 06/30/19 Stop Date: 07/28/19 Status: Ordered Problem List Condition Effective Dates Status Health Status Inform ant Asthma(Confirmed) Active Constipation(Confirmed) Active Iron deficiency anemia(Confirmed) Active Care Management [facility] Hailey CC [phone](Confirmed) Active Sickle cell trait(Confirmed) Active Social History Social History Type Response Smoking Status Never smoker entered on: 04/01/17 Sex
--- OUTSIDE RECORDS SUMMARY | 2023-09-12 18:23 | XMS_ITS | Continuity of Care Document ---
Author Organization [facility] Address [address] [place] [address]- Care Team Providers Care Wildlife Control Agent Name Role Phone Colby BRUMFIELD, Manny Valentine Primary Care Physicia n [facility] Date(s): 08/21/21 - 09/20/[address] [address]- Allergies, Adverse Reactions, Alerts No Known Allergies [...] Gm, 0 Refills, Maintenance, 05/22/20 18:01:00 EDT, [facility], [facility], Partial fill upon patient request if the prescription is for a scheduleII opioid drug., 1 application Topically 2 times a... Start Date: 05/22/20 Stop Date: 05/27/20 Status: Ordered clobetasol 0.05% topical cream See Instructions, Please apply dialy to affected area, # 45 Gm, 1 Refills, Maintenance, 06/25/20 15:41:00 EDT, [id number], Partial fill upon patient request if the prescription is for a schedule II opioid drug., Please apply dialy to affected... Start Date: 06/25/20 Status: Ordered ferrous sulfate 325 mg oral tablet 1 tablet, By Mouth, Every other day, # 90 tablet, 0 Refills, [id number], 175, cm, 03/03/21 16:44:00 EST, Height, 84, kg, 03/01/21 15:38:00 EST, Dry Weight Start Date: 06/09/21 Status: Ordered metroNIDAZOLE 500 mg oral tablet 1 tablet = 500 mg, By Mouth, Every 12 hours, # 14 tablet, 0 Refills, Maintenance, 04/12/21 9:59:00 EST, Tablet, [facility]/pharmacy #[id number], Partial fill upon patient request if the prescription is for a schedule II opioid drug., 175, cm, 03/03/21 16:44:00 EST... Start Date: 04/12/21 Stop Date: 04/19/21 Status: Ordered ProAir HFA 90 mcg/inh inhalation aerosol 2 puffs, Inhalation, Every 4 hours, PRN Wheezing/Shortness of Breath, # 1 each, 5 Refills, Maintenance, 05/04/20 10:23:00 EST, Aerosol, [facility], Partial fill upon patient request if the prescription is for a schedule II opioid drug.,... Start Date: 05/04/20 Stop Date: 10/31/20 Status: Ordered Provera 10 mg oral tablet 20 mg, 2, tablet, By Mouth, 3 times a day, # 84 tablet, Refills 0, Tot. Refills 0, Maintenance, 12/18/20 2:30:00 EDT, Route to Pharmacy Electronically, [facility]/pharmacy #[id number], Partial fill upon patient request if the prescription is for a schedule II opio... Start Date: 12/18/20 Stop Date: 01/01/21 Status: Ordered Provera 10 mg oral tablet 10 mg, 1, tablet, By Mouth, 2 times a day, # 20 tablet, Refills 0, Tot. Refills 0, Maintenance, 12/02/20 15:53:00 EDT, Route to Pharmacy Electronically, [facility]/pharmacy #[id number], Partial fill upon patient request if the prescription is for a schedule II opi... Start Date: 12/02/20 Stop Date: 12/12/20 Status: Ordered Symbicort 80mcg/4.5mcg Inhaler 2, puffs, Inhalation, 2 times a day, # 30 each, Refills 0, Tot. Refills 0, Maintenance, 05/04/20 10:25:00 EST, Aerosol, Route to Pharmacy Electronically, [id number], [facility], 175, cm, 05/04/20 8:13:00 ESTSedrick. Start Date: 05/04/20 Stop Date: 06/03/20 Status: [...] Active Constipation(Confirmed) Active Iron deficiency anemia(Confirmed) Active [facility] Care Management [facility] Radha Parrish [phone](Confirmed) Active Sickle cell trait(Confirmed) Active Social History Social History Type Response Smoking Status Never (less than 100 in lifetime) entered on: 03/01/21 Sex
--- OUTSIDE RECORDS SUMMARY | 2023-09-12 18:23 | XMS_ITS | Continuity of Care Document ---
Author Organization [facility] Address [address] [place] [address]- Care Team Providers Care Legal Compliance Officer Name Role Phone Colby BRUMFIELD, Manny Valentine Primary Care Physicia n [facility]counter [facility] Date(s): 01/24/21 - 02/23/[address] [address]- Allergies, Adverse Reactions, Alerts Substance Reaction Severity [...] 0 Refills, Maintenance, 05/22/20 18:01:00 EDT, Gel, [facility], Partial fill upon patient request if the prescription is for a scheduleII opioid drug., 1 application Topically 2 times a... Start Date: 05/22/20 Stop Date: 05/27/20 Status: Ordered clobetasol 0.05% topical cream See Instructions, Please apply dialy to affected area, # 45 Gm, 1 Refills, Maintenance, 06/25/20 15:41:00 EDT, [facility]/pharmacy #[id number], Partial fill upon patient request if the prescription is for a schedule II opioid drug., Please apply dialy to affected... Start Date: 06/25/20 Status: Ordered ferrous sulfate 325 mg oral tablet 1 tablet = 325 mg, By Mouth, Every other day, # 90 tablet, 0 Refills, Maintenance, 12/18/20 2:31:00EDT, Tablet, [facility]/pharmacy #[id number], Partial fill upon patient request if the prescription is for a schedule II opioid drug., 175, cm, 12/18/20 0:43:00 EDT... Start Date: 12/18/20 Status: Ordered metroNIDAZOLE 500 mg oral tablet 1 tablet = 500 mg, By Mouth, Every 12 hours, # 14 tablet, 0 Refills, Maintenance, 06/26/20 15:21:00EDT, Tablet, [facility]/pharmacy #[id number], Partial fill upon patient request if the prescription is for a schedule II opioid drug., 175, cm, 06/25/20 15:06:00 ED... Start Date: 06/26/20 Stop Date: 07/03/20 Status: Ordered ProAir HFA 90 mcg/inh inhalation aerosol 2 puffs, Inhalation, Every 4 hours, PRN Wheezing/Shortness of Breath, # 1 each, 5 Refills, Maintenance, 05/04/20 10:23:00 EST, Aerosol, [facility] 3, Partial fill upon patient request if the prescription is for a schedule II opioid drug.,... Start Date: 05/04/20 Stop Date: 10/31/20 Status: Ordered Provera 10 mg oral tablet 20 mg, 2, tablet, By Mouth, 3 times a day, # 84 tablet, Refills 0, Tot. Refills 0, Maintenance, 12/18/20 2:30:00 EDT, Route to Pharmacy Electronically, [facility]/pharmacy #[id number], Partial fill upon patient request if the prescription is for a schedule II opio... Start Date: 12/18/20 Stop Date: 01/01/21 Status: Ordered Provera 10 mg oral tablet 10 mg, 1, tablet, By Mouth, 2 times a day, # 20 tablet, Refills 0, Tot. Refills 0, Maintenance, 12/02/20 15:53:00 EDT, Route to Pharmacy Electronically, [facility]/pharmacy #[id number], Partial fill upon patient request if the prescription is for a schedule II opi... Start Date: 12/02/20 Stop Date: 12/12/20 Status: Ordered Symbicort 80mcg/4.5mcg Inhaler 2, puffs, Inhalation, 2 times a day, # 30 each, Refills 0, Tot. Refills 0, Maintenance, 05/04/20 10:25:00 EST, Aerosol, Route to Pharmacy Electronically, [id number], [facility] 3, 175, cm, 05/04/20 8:13:00 [place] [facility]. Start Date: 05/04/20 Stop Date: 06/03/20 Status: Ordered Problem List Condition Effective Dates Status Health Status Inform ant Asthma(Confirmed) Active Constipation(Confirmed) Active Iron deficiency anemia(Confirmed) Active [facility] Care Management [facility] , Radha Medardo [phone](Confirmed) Active Sickle cell trait(Confirmed) Active Social History Social History Type Response Smoking Status Never smoker entered on: 04/01/17 Sex
--- OUTSIDE RECORDS SUMMARY | 2023-09-12 18:23 | XMS_ITS | Continuity of Care Document ---
Author Organization [facility] Address [address] [place] [address]- Care Team Providers Care Hearing Therapy Director Name Role Phone Colby BRUMFIELD, Manny Valentine Primary Care Physicia n Encounter [facility] Date(s): 12/04/20 - 01/19/[address] [address]- Attending Physician: Not on Staff, Attending MD Allergies, Adverse Reactions, Alerts Substance Reaction [...] 0 Refills, Maintenance, 05/22/20 18:01:00 EDT, Gel, [facility], Partial fill upon patient request if the prescription is for a scheduleII opioid drug., 1 application Topically 2 times a... Start Date: 05/22/20 Stop Date: 05/27/20 Status: Ordered clobetasol 0.05% topical cream See Instructions, Please apply dialy to affected area, # 45 Gm, 1 Refills, Maintenance, 06/25/20 15:41:00 EDT, [facility]/pharmacy #[id number], Partial fill upon patient request if the prescription is for a schedule II opioid drug., Please apply dialy to affected... Start Date: 06/25/20 Status: Ordered ferrous sulfate 325 mg oral tablet 1 tablet = 325 mg, By Mouth, Every other day, # 90 tablet, 0 Refills, Maintenance, 12/18/20 2:31:00EDT, Tablet, [facility]/pharmacy #[id number], Partial fill upon patient request if the prescription is for a schedule II opioid drug., 175, cm, 12/18/20 0:43:00 EDT... Start Date: 12/18/20 Status: Ordered metroNIDAZOLE 500 mg oral tablet 1 tablet = 500 mg, By Mouth, Every 12 hours, # 14 tablet, 0 Refills, Maintenance, 06/26/20 15:21:00EDT, Tablet, [facility]/pharmacy #[id number], Partial fill upon patient request if the prescription is for a schedule II opioid drug., 175, cm, 06/25/20 15:06:00 ED... Start Date: 06/26/20 Stop Date: 07/03/20 Status: Ordered ProAir HFA 90 mcg/inh inhalation aerosol 2 puffs, Inhalation, Every 4 hours, PRN Wheezing/Shortness of Breath, # 1 each, 5 Refills, Maintenance, 05/04/20 10:23:00 EST, Aerosol, [facility], Partial fill upon patient request if the prescription is for a schedule II opioid drug.,... Start Date: 05/04/20 Stop Date: 10/31/20 Status: Ordered Provera 10 mg oral tablet 20 mg, 2, tablet, By Mouth, 3 times a day, # 84 tablet, Refills 0, Tot. Refills 0, Maintenance, 12/18/20 2:30:00 EDT, Route to Pharmacy Electronically, [facility]/pharmacy #[id number], Partial fill upon patient request if the prescription is for a schedule II opio... Start Date: 12/18/20 Stop Date: 01/01/21 Status: Ordered Provera 10 mg oral tablet 10 mg, 1, tablet, By Mouth, 2 times a day, # 20 tablet, Refills 0, Tot. Refills 0, Maintenance, 12/02/20 15:53:00 EDT, Route to Pharmacy Electronically, [facility]/pharmacy #[id number], Partial fill upon patient request if the prescription is for a schedule II opi... Start Date: 12/02/20 Stop Date: 12/12/20 Status: Ordered Symbicort 80mcg/4.5mcg Inhaler 2, puffs, Inhalation, 2 times a day, # 30 each, Refills 0, Tot. Refills 0, Maintenance, 05/04/20 10:25:00 EST, Aerosol, Route to Pharmacy Electronically, [id number], [facility] 3, 175, cm, 05/04/20 8:13:00 [place] [facility] Start Date: 05/04/20 Stop Date: 06/03/20 Status: Ordered Problem List Condition Effective Dates Status Health Status Inform ant Asthma(Confirmed) Active Constipation(Confirmed) Active Iron deficiency anemia(Confirmed) Active Sickle cell trait(Confirmed) Active Social History Social History Type Response Smoking Status Never smoker entered on: 04/01/17 Sex
--- OUTSIDE RECORDS SUMMARY | 2023-09-12 18:23 | XMS_ITS | Continuity of Care Document ---
Author Organization [facility] Address [address] [place] [id number]- Care Team Providers Care Pecan Picker Name Role Phone Colby BRUMFIELD, Manny Valentine Primary Care Physicia n [facility] Date[facility]s): 12/26/21 - 01/25/22 [facility] [address] [address]- Allergies, Adverse Reactions, Alerts No Known Allergies Immunizations Given and Recorded Vaccine Date Status Refusal Reason SARS-CoV-2 mRNA ([id number]-lrrj-lokmu) vax 1 12/25/21 Recorded SARS-CoV-2 mRNA (sqhhgqx-xcqy-yille) vax 09/03/21 Recorded SARS-CoV-2 mRNA ([id number]-[id number]-wzyxx) vax 08/12/21 Recorded influenza virus vaccine, inactivated [...] vis dated 04/09/06 given 6Admin Note: vis 2008- given 7Admin Note: VIS 04/09/06 GIVEN Medications Blood Pressure Monitor See Instructions, # 1 each, Maintenance, check daily, 01/02/22 12:17:00 EDT, Supply Start Date: 01/02/22 Status: Ordered ferrous sulfate 325 mg oral tablet 1 tablet, By Mouth, Every other day, # 90 tablet, 0 Refills, [id number], 175, cm, 03/03/21 16:44:00 EST, Height, 84, kg, 03/01/21 15:38:00 EST, Dry Weight Start Date: 06/09/21 Status: Ordered ProAir HFA 90 mcg/inh inhalation aerosol 2 puffs, Inhalation, Every 4 hours, PRN Wheezing/Shortness of Breath, # 1 each, 5 Refills, Maintenance, 05/04/20 10:23:00 EST, Aerosol, [facility], Partial fill upon patient request if the prescription is for a schedule II opioid drug.,... Start Date: 05/04/20 Stop Date: 10/31/20 Status: Ordered Symbicort 80mcg/4.5mcg Inhaler 2, puffs, Inhalation, 2 times a day, # 30 each, Refills 0, Tot. Refills 0, Maintenance, 05/04/20 10:25:00 EST, Aerosol, Route to Pharmacy Electronically, [id number], [facility], 175, cm, 05/04/20 8:13:00 EST, He... Start Date: 05/04/20 Stop Date: 06/03/20 Status: Ordered Valtrex 500 mg oral tablet 500 mg, 1, tablet, By Mouth, 2 times a day, for 3 days, # 6 tablet, Refills 5, Tot. Refills 5, Acute 02/02/22 20:14:00 EST, 01/15/22 20:14:00 EST, Route to Pharmacy Electronically, [facility]/pharmacy #[id number], Partial fill upon patient request if the prescript... Start Date: 01/15/22 Stop Date: 02/02/22 Status: Ordered Problem List Condition Confirmation Course Effective Dates Status Health St atus Informant Asthma Confirmed Active Constipation Confirmed Active Genital herpes Confirmed Active Hypertension Confirmed Active Iron deficiency anemia Confirmed Active Obese class I Confirmed Active [facility] Care Management [facility], Radha Medardo [phone] Confirmed Active Sickle cell trait Confirmed Active Social History Social History Type Response Smoking Status Never (less than 100 in lifetime) entered on: 03/01/21 Sex Patient Care team information Care Team Personnel Name: Isabella Phelan RN Position: [facility] AMB Nurse Member Role: Primary Care Nurse Name: Davey Rojas RN Position: [facility] RN Member Role: Primary Care Nurse Name: Manny Bowman NP Position: [facility] PCO Associate Professional Member Role: PCP Address: Address: [address] [place] [id number] Name: Verna Mireles RN Position: [facility] RN Member Role: Primary Care Nurse Care Team Related Persons Name: ROZ CALHOUN Address: home [address] [place] [address] Name: STEPHANIE MONSIVAIS Address: home UNKNOWN
--- OUTSIDE RECORDS SUMMARY | 2023-09-12 18:23 | XMS_ITS | Continuity of Care Document ---
Author Organization [facility] Address [address] [place] [address]- Care Team Providers Care Tugboat Mate Name Role Phone Manny Bowman NP Primary Care Physicia n Encounter [facility] Date[facility]s): 08/16/20 - 09/15/[address] [address]- Allergies, Adverse Reactions, Alerts Substance Reaction Severity [...] vis dated 04/09/06 given 5Admin Note: vis 2008- given 6Admin Note: VIS 04/09/06 GIVEN Medications clindamycin 1% topical gel 1 application, Topically, 2 times a day, # 30 Gm, 0 Refills, Maintenance, 05/22/20 18:01:00 EDT, Gel, [facility], Partial fill upon patient request if the prescription is for a scheduleII opioid drug., 1 application Topically 2 times a... Start Date: 05/22/20 Stop Date: 05/27/20 Status: Ordered clobetasol 0.05% topical cream See Instructions, Please apply dialy to affected area, # 45 Gm, 1 Refills, Maintenance, 06/25/20 15:41:00 EDT, [facility]/pharmacy #[id number], Partial fill upon patient request if the prescription is for a schedule II opioid drug., Please apply dialy to affected... Start Date: 06/25/20 Status: Ordered metroNIDAZOLE 500 mg oral tablet 1 tablet = 500 mg, By Mouth, Every 12 hours, # 14 tablet, 0 Refills, Maintenance, 06/26/20 15:21:00EDT, Tablet, [facility]/pharmacy #[id number], Partial fill upon patient request if the prescription is for a schedule II opioid drug., 175, cm, 06/25/20 15:06:00 ED... Start Date: 06/26/20 Stop Date: 07/03/20 Status: Ordered predniSONE 20 mg oral tablet 2 tablet = 40 mg, By Mouth, Daily, for 5 days, # 10 tablet, 0 Refills, Acute 09/17/20 19:18:00 EDT,09/12/20 19:18:00 EDT, Tablet, [facility]/pharmacy #[id number], Partial fill upon patient request if the prescription is for a schedule II opioid drug., 175, cm, 07... Start Date: 09/12/20 Stop Date: 09/17/20 Status: Ordered ProAir HFA 90 mcg/inh inhalation aerosol 2 puffs, Inhalation, Every 4 hours, PRN Wheezing/Shortness of Breath, # 1 each, 5 Refills, Maintenance, 05/04/20 10:23:00 EST, Aerosol, [facility], Partial fill upon patient request if the prescription is for a schedule II opioid drug.,... Start Date: 05/04/20 Stop Date: 10/31/20 Status: Ordered Symbicort 80mcg/4.5mcg Inhaler 2, puffs, Inhalation, 2 times a day, # 30 each, Refills 0, Tot. Refills 0, Maintenance, 05/04/20 10:25:00 EST, Aerosol, Route to Pharmacy Electronically, [id number], [facility], 175, cm, 05/04/20 8:13:00 EST, He... Start Date: 05/04/20 Stop Date: 06/03/20 Status: Ordered Tessalon Perles 100 mg oral capsule 1 capsule = 100 mg, By Mouth, 3 times a day, for 5 days, # 15 capsule, 0 Refills, Acute 09/17/20 19:18:00 EDT, 09/12/20 19:18:00 EDT, Capsule, [facility]/pharmacy #[id number], Partial fill upon patient request ifthe prescription is for a schedule II opioid drug.,... Start Date: 09/12/20 Stop Date: 09/17/20 Status: Ordered Problem List Condition Effective Dates Status Health Status Inform ant Asthma(Confirmed) Active Constipation(Confirmed) Active Iron deficiency anemia(Confirmed) Active Care Management [facility] , Hailey Renteria CC [phone](Confirmed) Active Sickle cell trait(Confirmed) Active Social History Social History Type Response Smoking Status Never smoker entered on: 04/01/17 Sex
--- OUTSIDE RECORDS SUMMARY | 2023-09-12 18:23 | XMS_ITS | Continuity of Care Document ---
Author Organization [facility] Address Unknown Care Team Providers Care Speech Communication Professor Name Role Phone Manny Bowman NP Primary Care Physicia n Encounter [facility] Date(s): 03/27/21 - 04/26/21 [facility] Attending Physician: Nando Reaves Admitting Physician: Nando Reaves Referring Physician: Nando Reaves Allergies, Adverse Reactions, Alerts No Known Allergies [...] 0 Refills, Maintenance, 05/22/20 18:01:00 EDT, Gel, [facility], Partial fill upon patient request if the prescription is for a scheduleII opioid drug., 1 application Topically 2 times a... Start Date: 05/22/20 Stop Date: 05/27/20 Status: Ordered clobetasol 0.05% topical cream See Instructions, Please apply dialy to affected area, # 45 Gm, 1 Refills, Maintenance, 06/25/20 15:41:00 EDT, [facility]/pharmacy #[id number], Partial fill upon patient request if the prescription is for a schedule II opioid drug., Please apply dialy to affected... Start Date: 06/25/20 Status: Ordered ferrous sulfate 325 mg oral tablet 1 tablet = 325 mg, By Mouth, Every other day, # 90 tablet, 0 Refills, Maintenance, 12/18/20 2:31:00EDT, Tablet, [facility]/pharmacy #[id number], Partial fill upon patient request if the prescription is for a schedule II opioid drug., 175, cm, 10/13/21 0:43:00 EDT... Start Date: 12/18/20 Status: Ordered metroNIDAZOLE 500 mg oral tablet 1 tablet = 500 mg, By Mouth, Every 12 hours, # 14 tablet, 0 Refills, Maintenance, 04/12/21 9:59:00 EST, Tablet, [facility]/pharmacy #[id number], Partial fill upon patient request if the prescription is for a schedule II opioid drug., 175, cm, 03/03/21 16:44:00 EST... Start Date: 04/12/21 Stop Date: 04/19/21 Status: Ordered ProAir HFA 90 mcg/inh inhalation aerosol 2 puffs, Inhalation, Every 4 hours, PRN Wheezing/Shortness of Breath, # 1 each, 5 Refills, Maintenance, 05/04/20 10:23:00 EST, Aerosol, [facility], Partial fill upon patient request if the prescription is for a schedule II opioid drug.,... Start Date: 05/04/20 Stop Date: 10/31/20 Status: Ordered Provera 10 mg oral tablet 20 mg, 2, tablet, By Mouth, 3 times a day, # 84 tablet, Refills 0, Tot. Refills 0, Maintenance, 12/18/20 2:30:00 EDT, Route to Pharmacy Electronically, [facility]/pharmacy #[id number], Partial fill upon patient request [...] 10:25:00 EST, Aerosol, Route to Pharmacy Electronically, [id number], [facility], 175, cm, 05/04/20 8:13:00 EST HeJade.. Start Date: 05/04/20 Stop Date: 06/03/20 Status: [...] Active Constipation(Confirmed) Active Iron deficiency anemia(Confirmed) Active [facility] Care Management [facility] Radha Parrish [phone](Confirmed) Active Sickle cell trait(Confirmed) Active Social History Social History Type Response Smoking Status Never (less than 100 in lifetime) entered on: 03/01/21 Sex
--- OUTSIDE RECORDS SUMMARY | 2023-09-12 18:23 | XMS_ITS | Continuity of Care Document ---
Author Organization [facility] Address [address] [place] [address]- Care Team Providers Care Business Rules Developer Name Role Phone Colby BRUMFIELD, Manny Valentine Primary Care Physicia n Encounter [facility] Date(s): 08/13/20 - 09/12/[address] [address]- Allergies, Adverse Reactions, Alerts Substance Reaction Severity [...] 0 Refills, Maintenance, 05/22/20 18:01:00 EDT, Gel, [facility], Partial fill upon patient [...] tablet, 0 Refills, Maintenance, 06/26/20 15:21:00EDT, Tablet, [facility]/pharmacy #[id number], Partial fill upon patient request if the prescription is for a schedule II opioid drug., 175, cm, 06/25/20 15:06:00 ED... Start Date: 06/26/20 Stop Date: 07/03/20 Status: Ordered predniSONE 20 mg oral tablet 2 tablet = 40 mg, By Mouth, Daily, for 5 days, # 10 tablet, 0 Refills, Acute 09/17/20 19:18:00 EDT,09/12/20 19:18:00 EDT, Tablet, [facility]/pharmacy #[id number], Partial fill upon patient request if the prescription is for a schedule II opioid drug., 175, cm, 07... Start Date: 09/12/20 Stop Date: 09/17/20 Status: Ordered ProAir HFA 90 mcg/inh inhalation aerosol 2 puffs, Inhalation, Every 4 hours, PRN Wheezing/Shortness of Breath, # 1 each, 5 Refills, Maintenance, 05/04/20 10:23:00 EST, Aerosol, [facility], Partial fill upon patient request if the prescription is for a schedule II opioid drug.,... Start Date: 05/04/20 Stop Date: 10/31/20 Status: Ordered Symbicort 80mcg/4.5mcg Inhaler 2, puffs, Inhalation, 2 times a day, # 30 each, Refills 0, Tot. Refills 0, Maintenance, 05/04/20 10:25:00 EST, Aerosol, Route to Pharmacy Electronically, [id number], [facility], 175, cm, 05/04/20 8:13:00 EST, He... Start Date: 05/04/20 Stop Date: 06/03/20 Status: Ordered Tessalon Perles 100 mg oral capsule 1 capsule = 100 mg, By Mouth, 3 times a day, for 5 days, # 15 capsule, 0 Refills, Acute 09/17/20 19:18:00 EDT, 09/12/20 19:18:00 EDT, Capsule, [facility]/pharmacy #[id number], Partial fill upon patient request ifthe prescription is for a schedule II opioid drug.,... Start Date: 09/12/20 Stop Date: 09/17/20 Status: Ordered Problem List Condition Effective Dates Status Health Status Inform ant Asthma(Confirmed) Active Constipation(Confirmed) Active Iron deficiency anemia(Confirmed) Active Care Management [facility] , Hailey Retneria CC [phone](Confirmed) Active Sickle cell trait(Confirmed) Active Social History Social History Type Response Smoking Status Never smoker entered on: 04/01/17 Sex
--- OUTSIDE RECORDS SUMMARY | 2023-09-12 18:23 | XMS_ITS | Continuity of Care Document ---
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 Start Date: 05/22/20 Stop Date: 05/27/20 Status: Ordered clobetasol 0.05% topical cream See Instructions, Please apply dialy to affected area, # 45 Gm, 1 Refills, Maintenance, 06/25/20 15:41:00 EDT, [facility]/pharmacy #[id number], Partial fill upon patient request if the prescription is for a schedule II opioid drug., Please apply dialy to affected... Start Date: 06/25/20 Status: Ordered metroNIDAZOLE 500 mg oral tablet 1 tablet = 500 mg, By Mouth, Every 12 hours, # 14 tablet, 0 Refills, Maintenance, 06/26/20 15:21:00EDT, Tablet, [facility]/pharmacy #[id number], Partial fill upon patient request if the prescription is for a schedule II opioid drug., 175, cm, 06/25/20 15:06:00 ED... Start Date: 06/26/20 Stop Date: 07/03/20 Status: Ordered ProAir HFA 90 mcg/inh inhalation aerosol 2 puffs, Inhalation, Every 4 hours, PRN Wheezing/Shortness of Breath, # 1 each, 5 Refills, Maintenance, 05/04/20 10:23:00 EST, Aerosol, [facility], Partial fill upon patient request if the prescription is for a schedule II opioid drug.,... Start Date: 05/04/20 Stop Date: 10/31/20 Status: Ordered Symbicort 80mcg/4.5mcg Inhaler 2, puffs, Inhalation, 2 times a day, # 30 each, Refills 0, Tot. Refills 0, Maintenance, 05/04/20 10:25:00 EST, Aerosol, Route to Pharmacy Electronically, [id number], [facility], 175, cm, 05/04/20 8:13:00 EST, He... Start Date: 05/04/20 Stop Date: 06/03/20 Status: Ordered Problem List Condition Effective Dates Status Health Status Inform ant Asthma(Confirmed) Active Constipation(Confirmed) Active Iron deficiency anemia(Confirmed) Active Sickle cell trait(Confirmed) Active Vital Signs Most recent to oldest [Reference Range]: 1 Height 169.00 cm (02/16/08 11:36 AM) Social History Social History Type Response Smoking Status Never smoker entered on: 04/01/17 Sex
--- OUTSIDE RECORDS SUMMARY | 2023-09-12 18:23 | XMS_ITS | Continuity of Care Document ---
Author Organization [facility] Address [address] [place] [address]- Care Team Providers Care Predictive Maintenance Specialist Name Role Phone Colby BRUMFIELD, Manny Valentine Primary Care Physicia n En[place] [facility] Date(s): 03/14/21 - 04/16/[address] [address]- Encounter Diagnosis Rash(Discharge Diagnosis) - 03/17/21 Attending Physician: Not on Staff, Attending MD [...] 0 Refills, Maintenance, 05/22/20 18:01:00 EDT, Gel, [facility], Partial fill upon patient request if the prescription is for a scheduleII opioid drug., 1 application Topically 2 times a... Start Date: 05/22/20 Stop Date: 05/27/20 Status: Ordered clobetasol 0.05% topical cream See Instructions, Please apply dialy to affected area, # 45 Gm, 1 Refills, Maintenance, 06/25/20 15:41:00 EDT, [facility]/pharmacy #[id number], Partial fill upon patient request if the prescription is for a schedule II opioid drug., Please apply dialy to affected... Start Date: 06/25/20 Status: Ordered ferrous sulfate 325 mg oral tablet 1 tablet = 325 mg, By Mouth, Every other day, # 90 tablet, 0 Refills, Maintenance, 12/18/20 2:31:00EDT, Tablet, [facility]/pharmacy #[id number], Partial fill upon patient request if the prescription is for a schedule II opioid drug., 175, cm, 12/18/20 0:43:00 EDT... Start Date: 12/18/20 Status: Ordered metroNIDAZOLE 500 mg oral tablet 1 tablet = 500 mg, By Mouth, Every 12 hours, # 14 tablet, 0 Refills, Maintenance, 04/12/21 9:59:00 EST, Tablet, [facility]/pharmacy #[id number], Partial fill upon patient request if the prescription is for a schedule II opioid drug., 175, cm, 03/03/21 16:44:00 EST... Start Date: 04/12/21 Stop Date: 04/19/21 Status: Ordered ProAir HFA 90 mcg/inh inhalation aerosol 2 puffs, Inhalation, Every 4 hours, PRN Wheezing/Shortness of Breath, # 1 each, 5 Refills, Maintenance, 05/04/20 10:23:00 EST, Aerosol, [facility], Partial fill upon patient request if the prescription is for a schedule II opioid drug.,... Start Date: 05/04/20 Stop Date: 10/31/20 Status: Ordered Provera 10 mg oral tablet 20 mg, 2, tablet, By Mouth, 3 times a day, # 84 tablet, Refills 0, Tot. Refills 0, Maintenance, 12/18/20 2:30:00 EDT, Route to Pharmacy Electronically, [facility]/pharmacy #[id number], Partial fill upon patient request if the prescription is for a schedule II opio... Start Date: 12/18/20 Stop Date: 01/01/21 Status: Ordered Provera 10 mg oral tablet 10 mg, 1, tablet, By Mouth, 2 times a day, # 20 tablet, Refills 0, Tot. Refills 0, Maintenance, 12/02/20 15:53:00 EDT, Route to Pharmacy Electronically, [facility]/pharmacy #[id number], Partial fill upon patient request if the prescription is for a schedule II opi... Start Date: 12/02/20 Stop Date: 12/12/20 Status: Ordered Symbicort 80mcg/4.5mcg Inhaler 2, puffs, Inhalation, 2 times a day, # 30 each, Refills 0, Tot. Refills 0, Maintenance, 05/04/20 10:25:00 EST, Aerosol, Route to Pharmacy Electronically, [id number], [facility], 175, cm, 05/04/20 8:13:00 EST, He... [...] Active Constipation(Confirmed) Active Iron deficiency anemia(Confirmed) Active [facility] Care Management [facility] , Radha Batres [phone](Confirmed) Active Sickle cell trait(Confirmed) Active Diagnosis Diagnosis Type Effective Dates Health Status Clini javier Service Informant Rash Discharge Diagnosis 03/17/21 Social History Social History Type Response Smoking Status Never (less than 100 in lifetime) entered on: 03/01/21 Sex
--- OUTSIDE RECORDS SUMMARY | 2023-09-12 18:23 | XMS_ITS | Continuity of Care Document ---
Author Organization [facility] Address [address] [place] [address]- Care Team Providers Care Career Law Clerk Name Role Phone Colby BRUMFIELD, Manny Valentine Primary Care Physicia n Encounter [facility] Date(s): 12/26/21 - 02/07/[address] [address]- Attending Physician: Not on Staff, Attending MD Allergies, Adverse Reactions, Alerts No Known Allergies Immunizations Given and Recorded Vaccine Date Status Refusal Reason SARS-CoV-2 mRNA (edfcndj-dcay-pbjpo) vax 1 12/25/21 Recorded SARS-CoV-2 mRNA (gpbwbng-yqpk-tklpx) vax 09/03/21 Recorded SARS-CoV-2 mRNA (daehxoj-gvzs-kevnl) vax 08/12/21 Recorded influenza virus vaccine, inactivated [...] # 90 tablet, 0 Refills, [id number], 175, cm, 03/03/21 16:44:00 EST, Height, 84, kg, 03/01/21 15:38:00 EST, Dry Weight Start Date: 06/09/21 Status: Ordered ProAir HFA 90 mcg/inh inhalation aerosol 2 puffs, Inhalation, Every 4 hours, PRN Wheezing/Shortness of Breath, # 1 each, 5 Refills, Maintenance, 05/04/20 10:23:00 EST, Aerosol, [facility], Partial fill upon patient request if the prescription is for a schedule II opioid drug.,... Start Date: 05/04/20 Stop Date: 10/31/20 Status: Ordered Symbicort 80mcg/4.5mcg Inhaler 2, puffs, Inhalation, 2 times a day, # 30 each, Refills 0, Tot. Refills 0, Maintenance, 05/04/20 10:25:00 EST, Aerosol, Route to Pharmacy Electronically, [id number], [facility], 175, cm, 05/04/20 8:13:00 EST, He... Start Date: 05/04/20 Stop Date: 06/03/20 Status: Ordered Problem List Condition Confirmation Course Effective Dates Status Health St [facility] Informant Asthma Confirmed Active Constipation Confirmed Active Genital herpes Confirmed Active Hypertension Confirmed Active Iron deficiency anemia Confirmed Active Obese class I Confirmed Active [facility] Care Management [facility], Radha Medardo [phone] Confirmed Active Sickle cell trait Confirmed Active Social History Social History Type Response Smoking Status Never (less than 100 in lifetime) entered on: 03/01/21 Sex Patient Care team information Care Team Personnel Name: Isabella Phelan RN Position: [facility] AMB Nurse Member Role: Primary Care Nurse Name: Davey Rojas RN Position: [facility] RN Member Role: Primary Care Nurse Name: Manny Bowman NP Position: [facility] PCO Associate Professional Member Role: PCP Address: Address: [address] [place] [id number]- Name: Verna Mireles RN Position: [facility] RN Member Role: Primary Care Nurse Care Team Related Persons Name: ROZ CALHOUN Address: home [address] [place] [address] Name: STEPHANIE MONSIVAIS Address: home UNKNOWN
--- OUTSIDE RECORDS SUMMARY | 2023-09-12 18:23 | XMS_ITS | Continuity of Care Document ---
Author Organization [facility] Address [address] [place] [address]- Care Team Providers Care Executive Assistant Name Role Phone Colby BRUMFIELD, Manny Valentine Primary Care Physicia n Encounter [facility] Date(s): 03/18/20 - 04/17/[address] [address]- Allergies, Adverse Reactions, Alerts Substance Reaction Severity [...] day, # 30 Gm, 0 Refills, Maintenance, 02/14/20 14:17:00 EST, Gel, [id number], Partial fill upon patient request if the prescription is for a schedule II opioid drug., 1 application Topically 2 times a day,x5... Start Date: 02/14/20 Stop Date: 02/19/20 Status: Ordered PPD PPD, See Instructions, # 1 each, Refills 0, Tot. Refills 0, Maintenance, PPD shot S/C use our stock, 03/29/20 14:50:00 EST, Supply Start Date: 03/29/20 Status: Ordered ProAir HFA 90 mcg/inh inhalation aerosol 2 puffs, Inhalation, Every 4 hours, PRN Wheezing/Shortness of Breath, # 1 each, 5 Refills, Maintenance, 03/18/20 16:33:00 EST, Aerosol, [id number], Partial fill upon patient request if the prescription is for a schedule II opioid drug., 2 puff... Start Date: 03/18/20 Status: Ordered Problem List Condition Effective Dates Status Health Status Inform ant Asthma(Confirmed) Active Constipation(Confirmed) Active Iron deficiency anemia(Confirmed) Active Care Management [facility] , Hailey Renteria CC [phone](Confirmed) Active Sickle cell trait(Confirmed) Active Social History Social History Type Response Smoking Status Never smoker entered on: 04/01/17 Sex
--- OUTSIDE RECORDS SUMMARY | 2023-09-12 18:23 | XMS_ITS | Continuity of Care Document ---
Author Organization [facility] ter Address [address] [place] [address]- Care Team Providers Care Canteen Manager Name Role Phone Colby BRUMFIELD, Manny Valentine Primary Care Physicia n Encounter [facility] Date(s): 12/17/20 - 12/18/[address] [address]- Discharge Disposition: A-D/C Home Attending Physician: William Lafleur MD Admitting Physician: William Lafluer MD Referring Physician: William Lafleur MD Allergies, Adverse Reactions, Alerts Substance Reaction Severity Status NKA Active Immunizations Given and Recorded Vaccine Date Status Refusal Reason influenza virus vaccine, inactivated 12/20/18 Give n Tet/Diphth/Acel, Pertussis (oldterm) 1 02/17/12 Gi chleo influ virus vac, H1N1, live(oldterm) 2 02/27/09 [...] 0 Refills, Maintenance, 05/22/20 18:01:00 EDT, Gel, [facility], Partial fill upon patient request if the prescription is for a scheduleII opioid drug., 1 application Topically 2 times a... Start Date: 05/22/20 Stop Date: 05/27/20 Status: Ordered clobetasol 0.05% topical cream See Instructions, Please apply dialy to affected area, # 45 Gm, 1 Refills, Maintenance, 06/25/20 15:41:00 EDT, [facility]/pharmacy #[id number], Partial fill upon patient request if the prescription is for a schedule II opioid drug., Please apply dialy to affected... Start Date: 06/25/20 Status: Ordered ferrous sulfate 325 mg oral tablet 1 tablet = 325 mg, By Mouth, Every other day, # 90 tablet, 0 Refills, Maintenance, 12/18/20 2:31:00EDT, Tablet, [facility]/pharmacy #[id number], Partial fill upon patient request if the prescription is for a schedule II opioid drug., 175, cm, 12/18/20 0:43:00 EDT... Start Date: 12/18/20 Status: Ordered metroNIDAZOLE 500 mg oral tablet 1 tablet = 500 mg, By Mouth, Every 12 hours, # 14 tablet, 0 Refills, Maintenance, 06/26/20 15:21:00EDT, Tablet, [facility]/pharmacy #[id number], Partial fill upon patient request if the prescription is for a schedule II opioid drug., 175, cm, 06/25/20 15:06:00 ED... Start Date: 06/26/20 Stop Date: 07/03/20 Status: Ordered ProAir HFA 90 mcg/inh inhalation aerosol 2 puffs, Inhalation, Every 4 hours, PRN Wheezing/Shortness of Breath, # 1 each, 5 Refills, Maintenance, 05/04/20 10:23:00 EST, Aerosol, [facility], Partial fill upon patient request if the prescription is for a schedule II opioid drug.,... Start Date: 05/04/20 Stop Date: 10/31/20 Status: Ordered Provera 10 mg oral tablet 20 mg, 2, tablet, By Mouth, 3 times a day, # 84 tablet, Refills 0, Tot. Refills 0, Maintenance, 12/18/20 2:30:00 EDT, Route to Pharmacy Electronically, [facility]/pharmacy #[id number], Partial fill upon patient request if the prescription is for a schedule II opio... Start Date: 12/18/20 Stop Date: 01/01/21 Status: Ordered Provera 10 mg oral tablet 10 mg, 1, tablet, By Mouth, 2 times a day, # 20 tablet, Refills 0, Tot. Refills 0, Maintenance, 12/02/20 15:53:00 EDT, Route to Pharmacy Electronically, [facility]/pharmacy #[id number], Partial fill upon patient request if the prescription is for a schedule II opi... Start Date: 12/02/20 Stop Date: 12/12/20 Status: Ordered Symbicort 80mcg/4.5mcg Inhaler 2, puffs, Inhalation, 2 times a day, # 30 each, Refills 0, Tot. Refills 0, Maintenance, 05/04/20 10:25:00 EST, Aerosol, Route to Pharmacy Electronically, [id number], [facility], 175, cm, 05/04/20 8:13:00 Catalina SALEH Start Date: 05/04/20 Stop Date: 06/03/20 Status: Ordered Problem List Condition Effective Dates Status Health Status Inform ant Asthma(Confirmed) Active Constipation(Confirmed) Active Iron deficiency anemia(Confirmed) Active Sickle cell trait(Confirmed) Active Vital Signs Most recent to oldest [Reference Range]: 1 Height 175 cm (12/18/20 12:43 AM) Blood Pressure [90-138/55-84 mm Hg] 154/ 98mm Hg *H* (12/18/20 12:43 AM) Respiratory Rate [16-30 br/min] 18 br/mi n (12/18/20 12:43 AM) Temperature [96.8-100.4 DegF] 98.1 DegF (12/18/20 12:43 AM) Blood pressure sites Arm, left (12/18/20 12:43 AM) Temperature Route Axillary (12/18/20 12:43 AM) Social History Social History Type Response Smoking Status Never smoker entered on: 04/01/17 Sex
--- OUTSIDE RECORDS SUMMARY | 2023-09-12 18:23 | XMS_ITS | Continuity of Care Document ---
Author Organization [facility] ter Address [address] [place] [address]- Care Team Providers Care Chemical Cell Changer Name Role Phone Colby BRUMFIELD, Manny Valentine Primary Care Physicia n Encounter [facility] Date[facility]s): 12/02/20 - 12/02/[address] [address]- Discharge Disposition: A-D/C Home Attending Physician: Laquita Stein MD Admitting Physician: Laquita Stein MD Referring Physician: Laquita Stein MD Allergies, Adverse Reactions, Alerts Substance Reaction [...] 0 Refills, Maintenance, 05/22/20 18:01:00 EDT, Gel, [facility], Partial fill upon patient request if the prescription is for a scheduleII opioid drug., 1 application Topically 2 times a... Start Date: 05/22/20 Stop Date: 05/27/20 Status: Ordered clobetasol 0.05% topical cream See Instructions, Please apply dialy to affected area, # 45 Gm, 1 Refills, Maintenance, 06/25/20 15:41:00 EDT, [facility]/pharmacy #[id number], Partial fill upon patient request if the prescription is for a schedule II opioid drug., Please apply dialy to affected... Start Date: 06/25/20 Status: Ordered metroNIDAZOLE 500 mg oral tablet 1 tablet = 500 mg, By Mouth, Every 12 hours, # 14 tablet, 0 Refills, Maintenance, 06/26/20 15:21:00EDT, Tablet, [facility]/pharmacy #[id number], Partial fill upon patient request if the prescription is for a schedule II opioid drug., 175, cm, 06/25/20 15:06:00 ED... Start Date: 06/26/20 Stop Date: 07/03/20 Status: Ordered ProAir HFA 90 mcg/inh inhalation aerosol 2 puffs, Inhalation, Every 4 hours, PRN Wheezing/Shortness of Breath, # 1 each, 5 Refills, Maintenance, 05/04/20 10:23:00 EST, Aerosol, [facility], Partial fill upon patient request if the prescription is for a schedule II opioid drug.,... Start Date: 05/04/20 Stop Date: 10/31/20 Status: Ordered Provera 10 mg oral tablet 10 mg, 1, tablet, By Mouth, 2 times a day, # 20 tablet, Refills 0, Tot. Refills 0, Maintenance, 12/02/20 15:53:00 EDT, Route to Pharmacy Electronically, [facility]/pharmacy #[id number], Partial fill upon patient request if the prescription is for a schedule II opi... Start Date: 12/02/20 Stop Date: 12/12/20 Status: Ordered Symbicort 80mcg/4.5mcg Inhaler 2, puffs, Inhalation, 2 times a day, # 30 each, Refills 0, Tot. Refills 0, Maintenance, 05/04/20 10:25:00 EST, Aerosol, Route to Pharmacy Electronically, [id number], [facility], 175, cm, 05/04/20 8:13:00 EST, He... Start Date: 05/04/20 Stop Date: 06/03/20 Status: Ordered Problem List Condition Effective Dates Status Health Status Inform ant Asthma(Confirmed) Active Constipation(Confirmed) Active Iron deficiency anemia(Confirmed) Active Sickle cell trait(Confirmed) Active Vital Signs Most recent to oldest [Reference Range]: 1 2 Height 175 cm (12/02/20 12:19 PM) Weight 85.3 kg (12/02/20 12:12 PM) Oxygen Saturation [94-100 %] 100 % (12/02/20 12:12 PM) Pulse Rate [55-90 bpm] 62 bpm (12/02/20 12:19 PM) 64 bpm (12/02/20 12:12 PM) Blood Pressure [90-138/55-84 mm Hg] 172/ 113mm Hg *H* (12/02/20 12:19 PM) Respiratory Rate [16-30 br/min] 18 br/mi n (12/02/20 12:19 PM) 20 br/min (12/02/20 12:12 PM) Temperature [96.8-100.4 DegF] 98.4 DegF (12/02/20 12:12 PM) Mode of Delivery (Oxygen) Room air (12/02/20 12:12 PM) Blood pressure sites Arm, left (12/02/20 12:19 PM) Temperature Route Oral (12/02/20 12:12 PM) Dry Weight 85.3 kg (12/02/20 12:12 PM) Social History Social History Type Response Smoking Status Never smoker entered on: 04/01/17 Sex
--- OUTSIDE RECORDS SUMMARY | 2023-09-12 18:23 | XMS_ITS | Continuity of Care Document ---
Author Organization [facility] Address [address] [place] [address]- Care Team Providers Care Tourist Information Officer Name Role Phone Antonella Elliott DO Primary Care Physician [place] [facility] [place] [facility] [id number] Date(s): 02/14/20 - 03/15/[address] [address]- Encounter Diagnosis Psychosis 298.9(Discharge Diagnosis) - 04/13/13 [...] each, 5 Refills,Maintenance, 10/08/19 11:19:00 EDT, Powder, [facility]/pharmacy #[id number], 1 puffs Inhalation Every 4 hours,x30 [...] 0 Refills, Maintenance, 04/21/19 10:46:00 EST, Tablet, [facility]/pharmacy #[id number], 175, cm, 04/11/19 10:26:00 EST, Height Start Date: 04/21/19 Stop Date: 05/01/19 Status: Ordered clindamycin 1% topical gel 1 application, Topically, 2 times a day, # 30 Gm, 0 Refills, Maintenance, 02/14/20 14:17:00 EST, Gel, [id number] Partial fill upon patient request if the prescription is for a schedule II opioid drug., 1 application Topically 2 times a day,x5... Start Date: 02/14/20 Stop Date: 02/19/20 Status: Ordered ibuprofen 600 mg oral tablet 600 mg, 1, tablet, By Mouth, Every 6 hours, # 40 tablet, Refills 0, Tot. Refills 0, Maintenance, 06/12/19 9:16:00 EDT, [facility]ically, [facility], 175, cm, 04/11/19 10:26:00EST, Height Start Date: 06/12/19 Status: Ordered influenza virus vaccine - intramuscular [...] Refills, Soft Stop, 04/14/19 9:39:00 EST, Cream, [facility]/pharmacy #[id number], 1 application Topically Once,Instr:to skin head to feet, remove by washing aft... Start Date: 04/14/19 Status: Ordered spacer spacer, See Instructions, # 1 each, Refills 0, Tot. Refills 0, Maintenance, Dx: Asthma. Use with albuterol inhaler., 07/07/17 13:55:59 EDT, Compound Start Date: 07/07/17 Status: Ordered Problem List Condition Effective Dates Status Health Status Inform ant Asthma(Confirmed) Active Constipation(Confirmed) Active Iron deficiency anemia(Confirmed) Active Care Management [facility] , Hailey Renteria [facility] [phone](Confirmed) Active Sickle cell trait(Confirmed) Active Vital Signs Most recent to oldest [Reference Range]: 1 Height 169.00 cm (02/16/08 11:36 AM) Social History Social History Type Response Smoking Status Never smoker entered on: 04/01/17 Sex
--- OUTSIDE RECORDS SUMMARY | 2023-09-12 18:23 | XMS_ITS | Continuity of Care Document ---
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 Role Phone Manny Bowman NP Primary Care Physicia n Encounter [facility] Date(s): 09/24/22 - 09/25/[address] [address]- Encounter Diagnosis Splinter of finger without major open wound with infection(Final) - 09/25/22 Discharge Disposition: A-D/C Home Attending Physician: Annie Ochoa MD Admitting Physician: Annie Ochoa MD Referring Physician: Not on Staff, Referring MD Allergies, Adverse Reactions, Alerts No Known Allergies Immunizations Given and Recorded Vaccine Date Status Refusal Reason SARS-CoV-2 mRNA (gjexjzv-hvce-lsurx) vax 1 12/25/21 Recorded SARS-CoV-2 mRNA (gkkxeai-mgca-drsix) vax 09/03/21 Recorded SARS-CoV-2 mRNA (cmtkzfk-xdgw-ylzyt) vax 08/12/21 Recorded influenza virus vaccine, inactivated [...] # 90 tablet, 0 Refills, [id number], 175, cm, 03/03/21 16:44:00 EST, Height, 84, kg, 03/01/21 15:38:00 EST, Dry Weight Start Date: 06/09/21 Status: Ordered ProAir HFA 90 mcg/inh inhalation aerosol 2 puffs, Inhalation, Every 4 hours, PRN Wheezing/Shortness of Breath, # 1 each, 5 Refills, Maintenance, 05/04/20 10:23:00 EST, Aerosol, [facility], Partial fill upon patient request if the prescription is for a schedule II opioid drug.,... Start Date: 05/04/20 Stop Date: 10/31/20 Status: Ordered Symbicort 80mcg/4.5mcg Inhaler 2, puffs, Inhalation, 2 times a day, # 30 each, Refills 0, Tot. Refills 0, Maintenance, 05/04/20 10:25:00 EST, Aerosol, Route to Pharmacy Electronically, [id number], [facility], 175, cm, 05/04/20 8:13:00 EST, He... Start Date: 05/04/20 Stop Date: 06/03/20 Status: Ordered Problem List Condition Confirmation Course Effective Dates Status Health St [facility] Informant Asthma Confirmed Active Constipation Confirmed Active Genital herpes Confirmed Active Hypertension Confirmed Active Iron deficiency anemia Confirmed Active [facility] Care Management [facility], Radha Medardo [phone] Confirmed Active Sickle cell trait Confirmed Active Results Radiology Reports * Exam Date Time Procedure Performing Provider Status 09/24/22 11:06 PM Finger 5th Left Hand Lynette Cook; Auth (Verified) Notes: (Finger 5th Left Hand) Reason For Exam: Infection RESULT: Finger 5th Left Hand Finger 5th Left Hand, 3 views Hx of Present Illness: Patient injured left 5th finger this morning. Patient believes there may be a wooden splinter embedded in left 5th finger. Patient reports chills and dizziness and nausea.; Reason: Infection; Clinical Question(s): Foreign Body COMPARISON: None. FINDINGS: No fractures or bone lesions. No arthritic changes. Normal soft tissues. IMPRESSION: Normal. No radiopaque foreign body or fracture identified. WSN: [id number] Ordering Physician: Derik Avitia Dictated By: Paul Gray MD Dictated Date/Time: 09/24/22 11:35 p Reviewed By: Paul Gray MD Signed By: Paul Gray MD Signed Date/Time: 09/24/22 11:35 pm Transcribed By: NORMA Transcribed Date/Time: 09/24/22 11:34 pm Vital Signs Most recent to oldest [Reference Range]: 1 2 3 Height 175 cm (09/24/22 10:34 PM) 175 cm (09/24/22 10:16 PM) Weight 88.2 kg (09/24/22 10:34 PM) 88.2 kg (09/24/22 10:16 PM) Oxygen Saturation [94-100 %] 100 % (09/25/22 7:07 AM) 100 % (09/25/22 3:25 AM) 99 % (09/25/22 1:28 AM) Pulse Rate [55-90 bpm] 55 bpm (09/25/22 7:07 AM) 56 bpm (09/25/22 3:25 AM) 65 bpm (09/25/22 1:28 AM) Body Mass Index [18.5-24.99 kg/m2] 28.8 kg/m2 *H* (09/24/22 10:16 PM) Blood Pressure [90-138/55-84 mm Hg] 162/116mm Hg *H* (09/25/22 7:07 AM) 151/97mm Hg *H* (09/25/22 3:25 AM) 157/101mm Hg *H* (09/25/22 1:28 AM) Respiratory Rate [16-30 br/min] 16 br/min (09/25/22 7:07 AM) 18 br/min (09/24/22 10:16 PM) 18 br/min (09/24/22 10:14 PM) Temperature [96.8-100.4 DegF] 98.1 DegF (09/25/22 7:07 AM) 97.9 DegF (09/25/22 3:25 AM) 98.4 DegF (09/25/22 1:28 AM) Mode of Delivery (Oxygen) Room air (09/25/22 7:07 AM) Room air (09/25/22 3:25 AM) Room air (09/25/22 1:28 AM) Blood pressure sites Arm, right (09/25/22 7:07 AM) Arm, right (09/25/22 3:25 AM) Arm, right (09/25/22 1:28 AM) Temperature Route Oral (09/25/22 7:07 AM) Oral (09/25/22 3:25 AM) Oral (09/25/22 1:28 AM) Social History Social History Type Response Smoking Status Never (less than 100 in lifetime) entered on: 03/01/21 Sex Note * Sarwat NDIAYE, Garfield: PERFORM Event Display: Patient Education Leaflets Authored Date: [id number] Splinter Removal ?? [id number] Splinter Removal A splinter has been removed from under your skin. Care was taken to remove all pieces present. But there is a chance that a small piece may have been left behind. Very small particles that remain under the skin often cause no problem and need no further treatment unless an infection develops. You may get a tetanus shot (injection) if needed. You may be given antibiotics to prevent or treat infection based on many factors. These include location of injury, severity of injury, time since injury, if you're at risk for infections due to an underlying condition, and other concerns. Home care These guidelines will help you care for your wound at home: ??? Keep the injured part raised (elevated) during the first 2 days. This helps reduce swelling and pain. ??? Keep the wound clean and dry.If a bandage was applied and it becomes wet or dirty, replace it. Otherwise, leave it in place for the first 24 hours. Then clean the wound daily: o After removing the bandage, wash the area with soap and water. Use a wet cotton swab to loosen and remove any blood or crust that forms. o After cleaning, apply a thin layer of antibiotic ointment. Put on a fresh bandage. ??? Unless told otherwise, you may shower as normal. But don't soak the area in water for at least 1 week. This means no baths or swimming. ??? You may use bowu-shm-xyvjkht medicine for pain, unless another pain medicine was given. Talk with your healthcare provider before using acetaminophen or ibuprofen if you have chronic liver or kidney disease. Also talk with your provider if you've ever had a stomach ulcer or digestivetract bleeding. ?? Follow-up care Follow up with your healthcare provider, or as advised. Most skin wounds heal within 10 days. But there's a risk of infection if there are any particles that are still under the skin. So check the wound in 2 days for the signs of infection listed below. Any stitches should be removed by a healthcare provider in 7 to 14 days. If surgical tape closures were used, remove them yourself if they haven't fallen off after 7 days. ?? When to get medical advice Call your healthcare provider right away if any of these occur: ??? Increasing pain in the wound ??? Redness, swelling, or pus coming from the wound ??? Fever of 100.4??F (38??C) or higher, or as advised by your provider ?? Last Reviewed Date: 2021 ?? [id number] [employer]. All rights reserved. This information is not intended as a substitute for professional medical care. Always follow your healthcare professional's instructions. ?? Patient Care team information Care Team Personnel Name: Isabella Phelan RN Position: [facility] AMB Nurse Member Role: Primary Care Nurse Name: Davey Rojas RN Position: [facility] RN Member Role: Primary Care Nurse Name: Manny Bowman NP Position: [facility] PCO Associate Professional Member Role: PCP Address: Address: [address] [place] [address]- Name: Verna Mireles RN Position: [facility] RN Member Role: Primary Care Nurse Name: Garfield Fam DO Position: [facility] Resident Member Role: ED Resident Address: Address: [address] [place] [address] [place] [address]- Care Team Related Persons Name: ROZ CALHOUN Address: home [address] [place] [address] Name: STEPHANIE MONSIVAIS Address: home UNKNOWN
--- OUTSIDE RECORDS SUMMARY | 2023-09-12 18:23 | XMS_ITS | Continuity of Care Document ---
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 Start Date: 05/22/20 Stop Date: 05/27/20 Status: Ordered clobetasol 0.05% topical cream See Instructions, Please apply dialy to affected area, # 45 Gm, 1 Refills, Maintenance, 06/25/20 15:41:00 EDT, [facility]/pharmacy #[id number], Partial fill upon patient request if the prescription is for a schedule II opioid drug., Please apply dialy to affected... Start Date: 06/25/20 Status: Ordered ferrous sulfate 325 mg oral tablet 1 tablet = 325 mg, By Mouth, Every other day, # 90 tablet, 0 Refills, Maintenance, 12/18/20 2:31:00EDT, Tablet, [facility]/pharmacy #4011, Partial fill upon patient request if the prescription is for a schedule II opioid drug., 175, cm, 12/18/20 0:43:00 EDT... Start Date: 12/18/20 Status: Ordered metroNIDAZOLE 500 mg oral tablet 1 tablet = 500 mg, By Mouth, Every 12 hours, # 14 tablet, 0 Refills, Maintenance, 04/12/21 9:59:00 EST, Tablet, [facility]/pharmacy #[id number], Partial fill upon patient request if the prescription is for a schedule II opioid drug., 175, cm, 03/03/21 16:44:00 EST... Start Date: 04/12/21 Stop Date: 04/19/21 Status: Ordered ProAir HFA 90 mcg/inh inhalation aerosol 2 puffs, Inhalation, Every 4 hours, PRN Wheezing/Shortness of Breath, # 1 each, 5 Refills, Maintenance, 05/04/20 10:23:00 EST, Aerosol, [facility], Partial fill upon patient request if the prescription is for a schedule II opioid drug.,... Start Date: 05/04/20 Stop Date: 10/31/20 Status: Ordered Provera 10 mg oral tablet 20 mg, 2, tablet, By Mouth, 3 times a day, # 84 tablet, Refills 0, Tot. Refills 0, Maintenance, 12/18/20 2:30:00 EDT, Route to Pharmacy Electronically, [facility]/pharmacy #[id number], Partial fill upon patient request if the prescription is for a schedule II opio... Start Date: 12/18/20 Stop Date: 01/01/21 Status: Ordered Provera 10 mg oral tablet 10 mg, 1, tablet, By Mouth, 2 times a day, # 20 tablet, Refills 0, Tot. Refills 0, Maintenance, 12/02/20 15:53:00 EDT, Route to Pharmacy Electronically, [facility]/pharmacy #[id number], Partial fill upon patient request if the prescription is for a schedule II opi... Start Date: 12/02/20 Stop Date: 12/12/20 Status: Ordered Symbicort 80mcg/4.5mcg Inhaler 2, puffs, Inhalation, 2 times a day, # 30 each, Refills 0, Tot. Refills 0, Maintenance, 05/04/20 10:25:00 EST, Aerosol, Route to Pharmacy Electronically, [id number], [facility], 175, cm, 05/04/20 8:13:00 ESTHe... [...] Active Constipation(Confirmed) Active Iron deficiency anemia(Confirmed) Active [facility] Care Management [facility] Radha [phone](Confirmed) Active Sickle cell trait(Confirmed) Active Social History Social History Type Response Smoking Status Never (less than 100 in lifetime) entered on: 03/01/21 Sex
--- OUTSIDE RECORDS SUMMARY | 2023-09-12 18:23 | XMS_ITS | Continuity of Care Document ---
Author Organization [facility] Address [address] [place] [address]- Care Team Providers Care Call Person Name Role Phone Colby BRUMFIELD, Manny Valentine Primary Care Physicia n [place] [facility] [place] [facility] [id number] Date(s): 07/10/21 - 08/09/[address] [address]- Encounter Diagnosis Psychosis 298.9(Discharge Diagnosis) - 04/13/13 Attending Physician: AdmtrNando Allergies, Adverse Reactions, Alerts No Known Allergies [...] Gm, 0 Refills, Maintenance, 05/22/20 18:01:00 EDT, [facility], [facility], Partial fill upon patient request if the prescription is for a scheduleII opioid drug., 1 application Topically 2 times a... Start Date: 05/22/20 Stop Date: 05/27/20 Status: Ordered clobetasol 0.05% topical cream See Instructions, Please apply dialy to affected area, # 45 Gm, 1 Refills, Maintenance, 06/25/20 15:41:00 EDT, [facility]/pharmacy #[id number], Partial fill upon patient request if the prescription is for a schedule II opioid drug., Please apply dialy to affected... Start Date: 06/25/20 Status: Ordered ferrous sulfate 325 mg oral tablet 1 tablet, By Mouth, Every other day, # 90 tablet, 0 Refills, [id number], 175, cm, 03/03/21 16:44:00 EST, Height, 84, kg, 03/01/21 15:38:00 EST, Dry Weight Start Date: 06/09/21 Status: Ordered metroNIDAZOLE 500 mg oral tablet 1 tablet = 500 mg, By Mouth, Every 12 hours, # 14 tablet, 0 Refills, Maintenance, 04/12/21 9:59:00 EST, Tablet, [facility]/pharmacy #[id number], Partial fill upon patient request if the prescription is for a schedule II opioid drug., 175, cm, 03/03/21 16:44:00 EST... Start Date: 04/12/21 Stop Date: 04/19/21 Status: Ordered ProAir HFA 90 mcg/inh inhalation aerosol 2 puffs, Inhalation, Every 4 hours, PRN Wheezing/Shortness of Breath, # 1 each, 5 Refills, Maintenance, 05/04/20 10:23:00 EST, Aerosol, [facility], Partial fill upon patient request if the prescription is for a schedule II opioid drug.,... Start Date: 05/04/20 Stop Date: 10/31/20 Status: Ordered Provera 10 mg oral tablet 20 mg, 2, tablet, By Mouth, 3 times a day, # 84 tablet, Refills 0, Tot. Refills 0, Maintenance, 12/18/20 2:30:00 EDT, Route to Pharmacy Electronically, [facility]/pharmacy #[id number], Partial fill upon patient request if [...] 10:25:00 EST, Aerosol, Route to Pharmacy Electronically, [id number], [facility], 175, cm, 05/04/20 8:13:00 EST, [...] Active Iron deficiency anemia(Confirmed) Active [facility] Care Management [facility] , Radha Batres [phone](Confirmed) Active Sickle cell trait(Confirmed) Active Vital Signs Most recent to oldest [Reference Range]: 1 Height 169.00 cm (02/16/08 11:36 AM) Social History Social History Type Response Smoking Status Never (less than 100 in lifetime) entered on: 03/01/21 Sex
--- OUTSIDE RECORDS SUMMARY | 2023-09-12 18:23 | XMS_ITS | Continuity of Care Document ---
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 Phone Colby BRUMFIELD, Manny Valentine Primary Care Physicia n Encounter [facility] [place] Date(s): 05/23/19 - 05/30/[address] [address]- [facility] Attending Physician: Nathen Marquez MD Allergies, Adverse Reactions, Alerts Substance Reaction [...] 10/08/19 11:19:00 EDT, 04/11/19 11:19:00 EST, Powder, [facility]/pharmacy #[id number], 175, cm, 04/11/19 10:26:00 EST, Height Start Date: 04/11/19 Stop Date: 10/08/19 Status: Ordered albuterol 90 mcg/inh inhalation powder 1 puffs = 90 mcg, Inhalation, Every 4 hours, PRN Wheezing/Shortness of Breath, # 1 each, 5 Refills,Maintenance, 10/08/19 11:19:00 EDT, Powder, [id number], 1 puffs Inhalation Every 4 hours,x30 [...] 0 Refills, Maintenance, 04/21/19 10:46:00 EST, Tablet, [facility]/pharmacy #[id number], 175, cm, 04/11/19 10:26:00 EST, Height [...] Refills, Soft Stop, 04/14/19 9:39:00 EST, Cream, [facility]/pharmacy #1, 1 application Topically Once,Instr:to skin head to [...] 06/30/19 17:38:00 EDT, 06/02/19 17:38:00 EDT, Cream, [facility]/pharmacy #[id number], 1 application Topically 2 times a day,x14 days, 175, cm, 04/11/19 10:26:00 EST, Height Start Date: 06/02/19 Stop Date: 06/30/19 Status: Ordered triamcinolone 0.1% topical cream 1 application, Topically, 2 times a day, for 14 days, # 60 Gm, 1 Refills, Acute 07/28/19 17:38:00 EDT, 06/30/19 17:38:00 EDT, Cream, [facility]/pharmacy #[id number], 1 application Topically 2 times a day,x14 days, 175, cm, 04/11/19 10:26:00 EST, Height Start Date: 06/30/19 Stop Date: 07/28/19 Status: Ordered Problem List Condition Effective Dates Status Health Status Inform ant Asthma(Confirmed) Active Constipation(Confirmed) Active Iron deficiency anemia(Confirmed) Active Care Management [facility] , Hailey Renteria [facility] [phone](Confirmed) Active Sickle cell trait(Confirmed) Active Social History Social History Type Response Smoking Status Never smoker entered on: 04/01/17 Sex
--- OUTSIDE RECORDS SUMMARY | 2023-09-12 18:23 | XMS_ITS | Continuity of Care Document ---
Author Organization 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 Role Phone Colby BRUMFIELD, Manny Valentine Primary Care Physicia n Encounter [facility] [place] Date(s): 06/12/19 - 06/19/[address] [address]- [facility] Attending Physician: Amita Jonas MD Allergies, Adverse Reactions, Alerts Substance Reaction [...] 10/08/19 11:19:00 EDT, 04/11/19 11:19:00 EST, Powder, [facility]/pharmacy #[id number], 175, cm, 04/11/19 10:26:00 EST, Height [...] 0 Refills, Maintenance, 04/21/19 10:46:00 EST, Tablet, [facility]/pharmacy #[id number], 175, cm, 04/11/19 10:26:00 EST, Height Start Date: 04/21/19 Stop Date: 05/01/19 Status: Ordered ibuprofen 600 mg oral tablet 600 mg, 1, tablet, By Mouth, Every 6 hours, # 40 tablet, Refills 0, Tot. Refills 0, Maintenance, 06/12/19 9:16:00 EDT, [id number] 175, cm, 04/11/19 10:26:00EST, Height Start Date: [...] Refills, Soft Stop, 04/14/19 9:39:00 EST, Cream, [facility]/pharmacy #[id number], 1 application Topically Once,Instr:to skin head [...] 06/30/19 17:38:00 EDT, 06/02/19 17:38:00 EDT, Cream, [id number], 1 application Topically 2 times a day,x14 days, 175, cm, 04/11/19 10:26:00 EST, Height Start Date: 06/02/19 Stop Date: 06/30/19 Status: Ordered triamcinolone 0.1% topical cream 1 application, Topically, 2 times a day, for 14 days, # 60 Gm, 1 Refills, Acute 07/10/19 9:16:00 EDT, 06/12/19 9:16:00 EDT, Cream, [id number], 1 application Topically 2 times a day,x14 days, 175, cm, 04/11/19 10:26:00 EST, Height Start Date: 06/12/19 Stop Date: 07/10/19 Status: Ordered Problem List Condition Effective Dates Status Health Status Inform ant Asthma(Confirmed) Active Constipation(Confirmed) Active Iron deficiency anemia(Confirmed) Active Care Management [facility] [phone](Confirmed) Active Sickle cell trait(Confirmed) Active Social History Social History Type Response Smoking Status Never smoker entered on: 04/01/17 Sex
--- OUTSIDE RECORDS SUMMARY | 2023-09-12 18:23 | XMS_ITS | Continuity of Care Document ---
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 Start Date: 05/22/20 Stop Date: 05/27/20 Status: Ordered ProAir HFA 90 mcg/inh inhalation aerosol 2 puffs, Inhalation, Every 4 hours, PRN Wheezing/Shortness of Breath, # 1 each, 5 Refills, Maintenance, 05/04/20 10:23:00 EST, Aerosol, [facility], Partial fill upon patient request if the prescription is for a schedule II opioid drug.,... Start Date: 05/04/20 Stop Date: 10/31/20 Status: Ordered Symbicort 80mcg/4.5mcg Inhaler 2, puffs, Inhalation, 2 times a day, # 30 each, Refills 0, Tot. Refills 0, Maintenance, 05/04/20 10:25:00 EST, Aerosol, Route to Pharmacy Electronically, [id number], [facility], 175, cm, 05/04/20 8:13:00 [place] [facility]. Start Date: 05/04/20 Stop Date: 06/03/20 Status: Ordered Problem List Condition Effective Dates Status Health Status Inform ant Asthma(Confirmed) Active Constipation(Confirmed) Active Iron deficiency anemia(Confirmed) Active Care Management [facility] [phone](Confirmed) Active Sickle cell trait(Confirmed) Active Social History Social History Type Response Smoking Status Never smoker entered on: 04/01/17 Sex
--- OUTSIDE RECORDS SUMMARY | 2023-09-12 18:23 | XMS_ITS | Continuity of Care Document ---
Author Organization [facility] Address [address] [place] [address]- Care Team Providers Care Health Sciences Dean Name Role Phone Colby BRUMFIELD, Manny Valentine Primary Care Physicia n [place] [facility] [place] [id number] Date(s): 12/20/20 - 01/19/[address] [address]- Encounter Diagnosis Psychosis 298.9(Discharge Diagnosis) - 04/13/13 [...] 0 Refills, Maintenance, 05/22/20 18:01:00 EDT, Gel, [facility], Partial fill upon patient request if the prescription is for a scheduleII opioid drug., 1 application Topically 2 times a... Start Date: 05/22/20 Stop Date: 05/27/20 Status: Ordered clobetasol 0.05% topical cream See Instructions, Please apply dialy to affected area, # 45 Gm, 1 Refills, Maintenance, 06/25/20 15:41:00 EDT, [facility]/pharmacy #[id number], Partial fill upon patient request if the prescription is for a schedule II opioid drug., Please apply dialy to affected... Start Date: 06/25/20 Status: Ordered ferrous sulfate 325 mg oral tablet 1 tablet = 325 mg, By Mouth, Every other day, # 90 tablet, 0 Refills, Maintenance, 12/18/20 2:31:00EDT, Tablet, [facility]/pharmacy #[id number], Partial fill upon patient request if the prescription is for a schedule II opioid drug., 175, cm, 12/18/20 0:43:00 EDT... Start Date: 12/18/20 Status: Ordered metroNIDAZOLE 500 mg oral tablet 1 tablet = 500 mg, By Mouth, Every 12 hours, # 14 tablet, 0 Refills, Maintenance, 06/26/20 15:21:00EDT, Tablet, [facility]/pharmacy #[id number], Partial fill upon patient request if the prescription is for a schedule II opioid drug., 175, cm, 06/25/20 15:06:00 ED... Start Date: 06/26/20 Stop Date: 07/03/20 Status: Ordered ProAir HFA 90 mcg/inh inhalation aerosol 2 puffs, Inhalation, Every 4 hours, PRN Wheezing/Shortness of Breath, # 1 each, 5 Refills, Maintenance, 05/04/20 10:23:00 EST, Aerosol, [facility], Partial fill upon patient request if the prescription is for a schedule II opioid drug.,... Start Date: 05/04/20 Stop Date: 10/31/20 Status: Ordered Provera 10 mg oral tablet 20 mg, 2, tablet, By Mouth, 3 times a day, # 84 tablet, Refills 0, Tot. Refills 0, Maintenance, 12/18/20 2:30:00 EDT, Route to Pharmacy Electronically, [facility]/pharmacy #[id number], Partial fill upon patient request if the prescription is for a schedule II opio... Start Date: 12/18/20 Stop Date: 01/01/21 Status: Ordered Provera 10 mg oral tablet 10 mg, 1, tablet, By Mouth, 2 times a day, # 20 tablet, Refills 0, Tot. Refills 0, Maintenance, 12/02/20 15:53:00 EDT, Route to Pharmacy Electronically, [facility]/pharmacy #[id number], Partial fill upon patient request if the prescription is for a schedule II opi... Start Date: 12/02/20 Stop Date: 12/12/20 Status: Ordered Symbicort 80mcg/4.5mcg Inhaler 2, puffs, Inhalation, 2 times a day, # 30 each, Refills 0, Tot. Refills 0, Maintenance, 05/04/20 10:25:00 EST, Aerosol, Route to Pharmacy Electronically, [id number], [facility], 175, cm, 05/04/20 8:13:00 [place] [facility]. Start Date: 05/04/20 Stop Date: 06/03/20 [...]
--- OUTSIDE RECORDS SUMMARY | 2023-09-12 18:23 | XMS_ITS | Continuity of Care Document ---
Author Organization [facility] Address [address] [place] [address]- Care Team Providers Care Mine Safety Engineer Name Role Phone Colby BRUMFIELD, Manny Valentine Primary Care Physicia n [place] [facility] [place]/09[place]19 - 07/09/[address] [address]- [facility] Attending Physician: Amita Jonas MD Allergies, Adverse [...] 10/08/19 11:19:00 EDT, 04/11/19 11:19:00 EST, Powder, [facility]/pharmacy #[id number], 175, cm, 04/11/19 10:26:00 EST, Height [...] 0 Refills, Maintenance, 04/21/19 10:46:00 EST, Tablet, [facility]/pharmacy #[id number], 175, cm, 04/11/19 10:26:00 EST, Height Start Date: 04/21/19 Stop Date: 05/01/19 Status: Ordered ibuprofen 600 mg oral tablet 600 mg, 1, tablet, By Mouth, Every 6 hours, # 40 tablet, Refills 0, Tot. Refills 0, Maintenance, 06/12/19 9:16:00 EDT, [id number] 175, cm, 04/11/19 10:26:00EST, Height Start [...] Refills, Soft Stop, 04/14/19 9:39:00 EST, Cream, [facility]/pharmacy #[id number], 1 application Topically Once,Instr:to skin head [...] Center, [facility] [phone](Confirmed) Active Sickle cell trait(Confirmed) Active Social History Social History Type Response Smoking Status Never smoker entered on: 04/01/17 Sex
--- OUTSIDE RECORDS SUMMARY | 2023-09-12 18:23 | XMS_ITS | Continuity of Care Document ---
Author Organization [facility] Address [address] [place] [address]- Care Team Providers Care Water Pollution Control Technician Name Role Phone Colby BRUMFIELD, Manny Valentine Primary Care Physicia n Encounter [facility] [place] Date(s): 01/14/22 - 02/13/[address] [address]- Attending Physician: AdmNando granados Admitting Physician: AdmtrNando Referring Physician: Admtr, Ar8 Allergies, Adverse Reactions, Alerts No Known Allergies Immunizations Given and Recorded Vaccine Date Status Refusal Reason SARS-CoV-2 mRNA (avopmgy-dwmy-zaadb) vax 1 12/25/21 Recorded SARS-CoV-2 mRNA (aemcred-xqfv-dcupl) vax 09/03/21 Recorded SARS-CoV-2 mRNA (qnwubek-ixfu-dscwe) vax 08/12/21 Recorded influenza virus vaccine, inactivated [...] (oldterm) 6 11/28/08 Given Gardasil (oldterm) 7 5/1/09 Given Meningococcal Conjugate Vaccine 11/13/05 Given Hepatitis [...] # 90 tablet, 0 Refills, [id number], 175, cm, 03/03/21 16:44:00 EST, Height, 84, kg, 03/01/21 15:38:00 EST, Dry Weight Start Date: 06/09/21 Status: Ordered ProAir HFA 90 mcg/inh inhalation aerosol 2 puffs, Inhalation, Every 4 hours, PRN Wheezing/Shortness of Breath, # 1 each, 5 Refills, Maintenance, 05/04/20 10:23:00 EST, Aerosol, [facility], Partial fill upon patient request if the prescription is for a schedule II opioid drug.,... Start Date: 05/04/20 Stop Date: 10/31/20 Status: Ordered Symbicort 80mcg/4.5mcg Inhaler 2, puffs, Inhalation, 2 times a day, # 30 each, Refills 0, Tot. Refills 0, Maintenance, 05/04/20 10:25:00 EST, Aerosol, Route to Pharmacy Electronically, [id number], [facility], 175, cm, 05/04/20 8:13:00 EST, He... Start Date: 05/04/20 Stop Date: 06/03/20 Status: Ordered Problem List Condition Confirmation Course Effective Dates Status Health St [facility] Informant Asthma Confirmed Active Constipation Confirmed Active Genital herpes Confirmed Active Hypertension Confirmed Active Iron deficiency anemia Confirmed Active Obese class I Confirmed Active [facility] Care Management [facility] Radha Medardo [phone] Confirmed Active Sickle cell trait Confirmed Active Social History Social History Type Response Smoking Status Never (less than 100 in lifetime) entered on: 03/01/21 Sex Patient Care team information Care Team Personnel Name: Isabella Phelan RN Position: [facility] AMB Nurse Member Role: Primary Care Nurse Name: Davey Rojas RN Position: [facility] RN Member Role: Primary Care Nurse Name: Manny Bowman NP Position: [facility] PCO Associate Professional Member Role: PCP Address: Address: [address] [place] [address]- Name: Verna Mireles RN Position: [facility] RN Member Role: Primary Care Nurse Care Team Related Persons Name: ROZ CALHOUN Address: [address] [place] [address] Name: STEPHANIE MONSIVAIS Address: home UNKNOWN
--- OUTSIDE RECORDS SUMMARY | 2023-09-12 18:23 | XMS_ITS | Continuity of Care Document ---
Author Organization [facility] Address [address] [place] [address]- Care Team Providers Care Ground Instructor Basic Name Role Phone Colby BRUMFIELD, Manny Valentine Primary Care Physicia n Encounter [facility] [place] Date(s): 02/02/22 - 03/04/[address] [address]- Encounter Diagnosis Psychosis 298.9(Discharge Diagnosis) - 04/13/13 Attending Physician: Nando Reaves Allergies, Adverse Reactions, Alerts No Known Allergies Immunizations Given and Recorded Vaccine Date Status Refusal Reason SARS-CoV-2 mRNA (uayrvzn-qzjb-wttwg) vax 1 12/25/21 Recorded SARS-CoV-2 mRNA (nxionkw-dser-vijzl) vax 09/03/21 Recorded SARS-CoV-2 mRNA (cqdvjvk-qdmt-vzakd) vax 08/12/21 Recorded influenza virus vaccine, inactivated [...] other day, # 90 tablet, 0 Refills, [id number], 175, cm, 03/03/21 16:44:00 EST, Height, 84, kg, 03/01/21 15:38:00 EST, Dry Weight Start Date: 06/09/21 Status: Ordered ProAir HFA 90 mcg/inh inhalation aerosol 2 puffs, Inhalation, Every 4 hours, PRN Wheezing/Shortness of Breath, # 1 each, 5 Refills, Maintenance, 05/04/20 10:23:00 EST, Aerosol, [facility], Partial fill upon patient request if the prescription is for a schedule II opioid drug.,... Start Date: 05/04/20 Stop Date: 10/31/20 Status: Ordered Symbicort 80mcg/4.5mcg Inhaler 2, puffs, Inhalation, 2 times a day, # 30 each, Refills 0, Tot. Refills 0, Maintenance, 05/04/20 10:25:00 EST, Aerosol, Route to Pharmacy Electronically, [id number], [facility], 175, cm, 05/04/20 8:13:00 EST, He... Start Date: 05/04/20 Stop Date: 06/03/20 Status: Ordered Problem List Condition Confirmation Course Effective Dates Status Health [facility] Informant Asthma Confirmed Active Constipation Confirmed Active Genital herpes Confirmed Active Hypertension Confirmed Active Iron deficiency anemia Confirmed Active Obese class I Confirmed Active [facility] Care Management [facility] Radha Medardo [phone] Confirmed Active Sickle cell trait Confirmed Active Vital Signs Most recent to oldest [Reference Range]: 1 Height 169.00 cm (02/16/08 11:36 AM) Social History Social History Type Response Smoking Status Never (less than 100 in lifetime) entered on: 03/01/21 Sex Note * Event Display: Non [facility] Radiology Results Authored Date: Patient Care team information Care Team Personnel Name: Isabella Phelan RN Position: [facility] AMB Nurse Member Role: Primary Care Nurse Name: Davey Rojas RN Position: [facility] RN Member Role: Primary Care Nurse Name: Manny Bowman NP Position: [facility] PCO Associate Professional Member Role: PCP Address: Address: [address] [place] [address]- Name: Verna Mireles RN Position: [facility] RN Member Role: Primary Care Nurse Care Team Related Persons Name: ROZ CALHOUN Address: home [address] [place] [id number] Name: STEPHANIE MONSIVAIS Address: home UNKNOWN
--- OUTSIDE RECORDS SUMMARY | 2023-09-12 18:23 | XMS_ITS | Continuity of Care Document ---
Author Organization [facility] Address [address] [place] [address]- Care Team Providers Care Real Estate Office Manager Name Role Phone Colby BRUMFIELD, Manny Valentine Primary Care Physicia n Encounter [facility] Date(s): 11/21/20 - 12/21/[address] [address]- Allergies, Adverse Reactions, Alerts Substance Reaction Severity [...] 0 Refills, Maintenance, 05/22/20 18:01:00 EDT, Gel, [facility], Partial fill upon patient request if the prescription is for a scheduleII opioid drug., 1 application Topically 2 times a... Start Date: 05/22/20 Stop Date: 05/27/20 Status: Ordered clobetasol 0.05% topical cream See Instructions, Please apply dialy to affected area, # 45 Gm, 1 Refills, Maintenance, 06/25/20 15:41:00 EDT, [id number], Partial fill upon patient request if the prescription is for a schedule II opioid drug., Please apply dialy to affected... Start Date: 06/25/20 Status: Ordered ferrous sulfate 325 mg oral tablet 1 tablet = 325 mg, By Mouth, Every other day, # 90 tablet, 0 Refills, Maintenance, 12/18/20 2:31:00EDT, Tablet, [facility]/pharmacy #[id number], Partial fill upon patient request if the prescription is for a schedule II opioid drug., 175, cm, 12/18/20 0:43:00 EDT... Start Date: 12/18/20 Status: Ordered metroNIDAZOLE 500 mg oral tablet 1 tablet = 500 mg, By Mouth, Every 12 hours, # 14 tablet, 0 Refills, Maintenance, 06/26/20 15:21:00EDT, Tablet, [id number], Partial fill upon patient request if the prescription is for a schedule II opioid drug., 175, cm, 06/25/20 15:06:00 ED... Start Date: 06/26/20 Stop Date: 07/03/20 Status: Ordered ProAir HFA 90 mcg/inh inhalation aerosol 2 puffs, Inhalation, Every 4 hours, PRN Wheezing/Shortness of Breath, # 1 each, 5 Refills, Maintenance, 05/04/20 10:23:00 EST, Aerosol, [facility], Partial fill upon patient [...] 10:25:00 EST, Aerosol, Route to Pharmacy Electronically, [id number], [facility], 175, cm, 05/04/20 8:13:00 EST, He... Start Date: 05/04/20 Stop Date: 06/03/20 Status: Ordered Problem List Condition Effective Dates Status Health Status Inform ant Asthma(Confirmed) Active Constipation(Confirmed) Active Iron deficiency anemia(Confirmed) Active Sickle cell trait(Confirmed) Active Social History Social History Type Response Smoking Status Never smoker entered on: 04/01/17 Sex
--- OUTSIDE RECORDS SUMMARY | 2023-09-12 18:23 | XMS_ITS | Continuity of Care Document ---
Author Organization [facility] Address [address] [place] [address]- Care Team Providers Care Compressor Operator Adjuster Name Role Phone Manny Bowman NP Primary Care Physicia n Encounter [facility] Date(s): 12/09/20 - 01/25/[address] [address]- Attending Physician: Not on Staff, Attending MD [...] 0 Refills, Maintenance, 05/22/20 18:01:00 EDT, Gel, [facility], Partial fill upon patient request if the prescription is for a scheduleII opioid drug., 1 application Topically 2 times a... Start Date: 05/22/20 Stop Date: 05/27/20 Status: Ordered clobetasol 0.05% topical cream See Instructions, Please apply dialy to affected area, # 45 Gm, 1 Refills, Maintenance, 06/25/20 15:41:00 EDT, [facility]/pharmacy #[id number], Partial fill upon patient request if the prescription is for a schedule II opioid drug., Please apply dialy to affected... Start Date: 06/25/20 Status: Ordered ferrous sulfate 325 mg oral tablet 1 tablet = 325 mg, By Mouth, Every other day, # 90 tablet, 0 Refills, Maintenance, 12/18/20 2:31:00EDT, Tablet, [facility]/pharmacy #1971, Partial fill upon patient request if the prescription is for a schedule II opioid drug., 175, cm, 12/18/20 0:43:00 EDT... Start Date: 12/18/20 Status: Ordered Medrol Dosepak 4 mg oral tablet 1 pack/packet, By Mouth, Daily, for 6 days, as directed on package labeling, # 21 tablet, 0 Refills, Acute 01/30/21 14:50:00 EST, 01/24/21 14:50:00 EST, Tablet, [id number], Partial fill upon patient request if the prescription is for a schedul... Start Date: 01/24/21 Stop Date: 01/30/21 Status: Ordered metroNIDAZOLE 500 mg oral tablet 1 tablet = 500 mg, By Mouth, Every 12 hours, # 14 tablet, 0 Refills, Maintenance, 06/26/20 15:21:00EDT, Tablet, [id number], Partial fill upon patient request if the prescription is for a schedule II opioid drug., 175, cm, 06/25/20 15:06:00 ED... Start Date: 06/26/20 Stop Date: 07/03/20 Status: Ordered ProAir HFA 90 mcg/inh inhalation aerosol 2 puffs, Inhalation, Every 4 hours, PRN Wheezing/Shortness of Breath, # 1 each, 5 Refills, Maintenance, 05/04/20 10:23:00 EST, Aerosol, [facility], Partial fill upon patient request if the prescription is for a schedule II opioid drug.,... Start Date: 05/04/20 Stop Date: 10/31/20 Status: Ordered Provera 10 mg oral tablet 20 mg, 2, tablet, By Mouth, 3 times a day, # 84 tablet, Refills 0, Tot. Refills 0, Maintenance, 12/18/20 2:30:00 EDT, Route to Pharmacy Electronically, [id number], [...] 10:25:00 EST, Aerosol, Route to Pharmacy Electronically, [id number], [facility], 175, cm, 05/04/20 8:13:00 EST, He... Start Date: 05/04/20 Stop Date: 06/03/20 Status: Ordered Problem List Condition Effective Dates Status Health Status Inform ant Asthma(Confirmed) Active Constipation(Confirmed) Active Iron deficiency anemia(Confirmed) Active Sickle cell trait(Confirmed) Active Social History Social History Type Response Smoking Status Never smoker entered on: 04/01/17 Sex
--- OUTSIDE RECORDS SUMMARY | 2023-09-12 18:23 | XMS_ITS | Continuity of Care Document ---
Author Organization [facility] Address [address] [place] [address]- Care Team Providers Care Deck Engine Operator Name Role Phone Colby BRUMFIELD, Manny Valentine Primary Care Physicia n Encounter [facility] Date(s): 04/15/20 - 05/15/[address] [address]- Allergies, Adverse Reactions, Alerts Substance Reaction Severity [...] given 6Admin Note: VIS 04/09/06 GIVEN Medications ProAir HFA 90 mcg/inh inhalation aerosol 2 puffs, Inhalation, Every 4 hours, PRN Wheezing/Shortness of Breath, # 1 each, 5 Refills, Maintenance, 05/04/20 10:23:00 EST, Aerosol, [facility], Partial fill upon patient request if the prescription is for a schedule II opioid drug.,... Start Date: 05/04/20 Stop Date: 10/31/20 Status: Ordered Symbicort 80mcg/4.5mcg Inhaler 2, puffs, Inhalation, 2 times a day, # 30 each, Refills 0, Tot. Refills 0, Maintenance, 05/04/20 10:25:00 EST, Aerosol, Route to Pharmacy Electronically, [id number], [facility], 175, cm, 05/04/20 8:13:00 EST, He... Start Date: 05/04/20 Stop Date: 06/03/20 Status: Ordered Problem List Condition Effective Dates Status Health Status Inform ant Asthma(Confirmed) Active Constipation(Confirmed) Active Iron deficiency anemia(Confirmed) Active Care Management [facility] , [facility] [phone](Confirmed) Active Sickle cell trait(Confirmed) Active Social History Social History Type Response Smoking Status Never smoker entered on: 04/01/17 Sex
--- OUTSIDE RECORDS SUMMARY | 2023-09-12 18:24 | XMS_ITS | Continuity of Care Document ---
Author Organization [facility] Address [address] [place] [address]- Care Team Providers Care Child Care Team Lead Name Role Phone Manny Bowman NP Primary Care Physicia n En[place] [facility] [place] [place] [id number] Date(s): 05/03/20 - 06/02/[address] [address]- Encounter Diagnosis Psychosis 298.9(Discharge Diagnosis) - 04/13/13 [...] 0 Refills, Maintenance, 05/22/20 18:01:00 EDT, Gel, [facility], Partial fill upon patient request if the prescription is for a scheduleII opioid drug., 1 application Topically 2 times a... Start Date: 05/22/20 Stop Date: 05/27/20 Status: Ordered ProAir HFA 90 mcg/inh inhalation aerosol 2 puffs, Inhalation, Every 4 hours, PRN Wheezing/Shortness of Breath, # 1 each, 5 Refills, Maintenance, 05/04/20 10:23:00 EST, Aerosol, [facility], Partial fill upon patient request if the prescription is for a schedule II opioid drug.,... Start Date: 05/04/20 Stop Date: 10/31/20 Status: Ordered Symbicort 80mcg/4.5mcg Inhaler 2, puffs, Inhalation, 2 times a day, # 30 each, Refills 0, Tot. Refills 0, Maintenance, 05/04/20 10:25:00 EST, Aerosol, Route to Pharmacy Electronically, [id number], [facility], 175, cm, 05/04/20 8:13:00 [place] [facility] Start Date: 05/04/20 Stop Date: 06/03/20 Status: Ordered Problem List Condition Effective Dates Status Health Status Inform ant Asthma(Confirmed) Active Constipation(Confirmed) Active Iron deficiency anemia(Confirmed) Active Care Management [facility] [phone](Confirmed) Active Sickle cell trait(Confirmed) Active Vital Signs Most recent to oldest [Reference Range]: 1 Height 169.00 cm (02/16/08 11:36 AM) Social History Social History Type Response Smoking Status Never smoker entered on: 04/01/17 Sex
--- OUTSIDE RECORDS SUMMARY | 2023-09-12 18:24 | XMS_ITS | Continuity of Care Document ---
Author Organization [facility] Address [address] [place] [address]- Care Team Providers Care Telemarketing Agent Name Role Phone Colby BRUMFIELD, Manny Valentine Primary Care Physicia n [facility] Date(s): 04/15/20 - 05/15/[address] [address]- Allergies, Adverse Reactions, Alerts Substance Reaction Severity [...] 5 Refills, Maintenance, 05/04/20 10:23:00 EST, Aerosol, [facility], Partial fill upon patient request if the prescription is for a schedule II opioid drug.,... Start Date: 05/04/20 Stop Date: 10/31/20 Status: Ordered Symbicort 80mcg/4.5mcg Inhaler 2, puffs, Inhalation, 2 times a day, # 30 each, Refills 0, Tot. Refills 0, Maintenance, 05/04/20 10:25:00 EST, Aerosol, Route to Pharmacy Electronically, [id number], [facility], 175, cm, 05/04/20 8:13:00 EST, He... Start Date: 05/04/20 Stop Date: 06/03/20 Status: Ordered Problem List Condition Effective Dates Status Health Status Inform ant Asthma(Confirmed) Active Constipation(Confirmed) Active Iron deficiency anemia(Confirmed) Active Care Management [facility] , [facility] Rentreia [facility] [phone](Confirmed) Active Sickle cell trait(Confirmed) Active Social History Social History Type Response Smoking Status Never smoker entered on: 04/01/17 Sex
--- OUTSIDE RECORDS SUMMARY | 2023-09-12 18:24 | XMS_ITS | Continuity of Care Document ---
Author Organization [facility] Address [address] [place] [address]- Care Team Providers Care Cut Out And Marking Machine Operator Name Role Phone Colby BRUMFIELD, Manny Valentine Primary Care Physicia n [place] [facility] [place] 10/15/22 - 11/14/[address] [address]- Encounter Diagnosis Psychosis 298.9(Discharge Diagnosis) - 04/13/13 Attending Physician: Nando Reaves Allergies, Adverse Reactions, Alerts No Known Allergies Immunizations Given and Recorded Vaccine Date Status Refusal Reason SARS-CoV-2 mRNA (iapmfxp-omlp-yianb) vax 1 12/25/21 Recorded SARS-CoV-2 mRNA (xxjhwqg-hsqj-pebdk) vax 09/03/21 Recorded SARS-CoV-2 mRNA (jlumpqg-wzxf-kqspg) vax 08/12/21 Recorded influenza virus vaccine, inactivated [...] 04/10/91 Given Poliovirus Vaccine, Inactivated 01/20/91 Given 1Result Comment[facility]: vis 03/31/11 [...] # 90 tablet, 0 Refills, [id number], 175, cm, 03/03/21 16:44:00 EST, Height, 84, kg, 03/01/21 15:38:00 EST, Dry Weight Start Date: 06/09/21 Status: Ordered ProAir HFA 90 mcg/inh inhalation aerosol 2 puffs, Inhalation, Every 4 hours, PRN Wheezing/Shortness of Breath, # 1 each, 5 Refills, Maintenance, 05/04/20 10:23:00 EST, Aerosol, [facility], Partial fill upon patient request if the prescription is for a schedule II opioid drug.,... Start Date: 05/04/20 Stop Date: 10/31/20 Status: Ordered Symbicort 80mcg/4.5mcg Inhaler 2, puffs, Inhalation, 2 times a day, # 30 each, Refills 0, Tot. Refills 0, Maintenance, 05/04/20 10:25:00 EST, Aerosol, Route to Pharmacy Electronically, [id number], [facility], 175, cm, 05/04/20 8:13:00 EST, He... Start Date: 05/04/20 Stop Date: 06/03/20 Status: Ordered Problem List Condition Confirmation Course Effective Dates Status Health [facility] Informant Asthma Confirmed Active Constipation Confirmed Active Genital herpes Confirmed Active Hypertension Confirmed Active Iron deficiency anemia Confirmed Active [facility] Care Management [facility] Radha Batres [phone] Confirmed Active Sickle cell trait Confirmed Active Vital Signs Most recent to oldest [Reference Range]: 1 Height 169.00 cm (02/16/08 11:36 AM) Social History Social History Type Response Smoking Status Never (less than 100 in lifetime) entered on: 03/01/21 Sex Radiology * Event Display: Non Radiology Results Authored Date: [id number] Patient Care team information Care Team Personnel Name: Davey Rojas RN Position: [facility] RN Member Role: Primary Care Nurse Name: Manny Bowman NP Position: [facility] PCO Associate Professional Member Role: PCP Address: Address: [address] [place] [address]- Name: Verna Mireles RN Position: [facility] RN Member Role: Primary Care Nurse Care Team Related Persons Name: STEPHANIE MONSIVAIS Address: home UNKNOWN
--- OUTSIDE RECORDS SUMMARY | 2023-09-12 18:24 | XMS_ITS | Continuity of Care Document ---
Author Organization [facility] Address [address] [place] [address]- Care Team Providers Care Kaiwhakahaere Name Role Phone Manny Bowman NP Primary Care Physicia n [facility]counter [facility] Date(s): 09/12/20 - 10/12/[address] [address]- Allergies, Adverse Reactions, Alerts Substance Reaction Severity [...] 0 Refills, Maintenance, 05/22/20 18:01:00 EDT, Gel, [facility], Partial fill upon patient request if the prescription is for a scheduleII opioid drug., 1 application Topically 2 times a... Start Date: 05/22/20 Stop Date: 05/27/20 Status: Ordered clobetasol 0.05% topical cream See Instructions, Please apply dialy to affected area, # 45 Gm, 1 Refills, Maintenance, 06/25/20 15:41:00 EDT, [id number], Partial fill upon patient request if the prescription is for a schedule II opioid drug., Please apply dialy to affected... Start Date: 06/25/20 Status: Ordered metroNIDAZOLE 500 mg oral tablet 1 tablet = 500 mg, By Mouth, Every 12 hours, # 14 tablet, 0 Refills, Maintenance, 06/26/20 15:21:00EDT, Tablet, [facility][id number], Partial fill upon patient request if the prescription is for a schedule II opioid drug., 175, cm, 06/25/20 15:06:00 ED... Start Date: 06/26/20 Stop Date: 07/03/20 Status: Ordered ProAir HFA 90 mcg/inh inhalation aerosol 2 puffs, Inhalation, Every 4 hours, PRN Wheezing/Shortness of Breath, # 1 each, 5 Refills, Maintenance, 05/04/20 10:23:00 EST, Aerosol, [facility], Partial fill upon patient request if the prescription is for a schedule II opioid drug.,... Start Date: 05/04/20 Stop Date: 10/31/20 Status: Ordered Symbicort 80mcg/4.5mcg Inhaler 2, puffs, Inhalation, 2 times a day, # 30 each, Refills 0, Tot. Refills 0, Maintenance, 05/04/20 10:25:00 EST, Aerosol, Route to Pharmacy Electronically, [id number], [facility], 175, cm, 05/04/20 8:13:00 EST, He... Start Date: 05/04/20 Stop Date: 06/03/20 Status: Ordered Problem List Condition Effective Dates Status Health Status Inform ant Asthma(Confirmed) Active Constipation(Confirmed) Active Iron deficiency anemia(Confirmed) Active Care Management [facility] CC [phone](Confirmed) Active Sickle cell trait(Confirmed) Active Social History Social History Type Response Smoking Status Never smoker entered on: 04/01/17 Sex
--- OUTSIDE RECORDS SUMMARY | 2023-09-12 18:24 | XMS_ITS | Continuity of Care Document ---
Author Organization [facility] Address [address] [place] [address]- Care Team Providers Care Manager Clinical Services Name Role Phone Colby BRUMFIELD, Manny Valentine Primary Care Physicia n Encounter [facility] Date(s): 01/05/22 - 02/04/[address] [address]- Allergies, Adverse Reactions, Alerts No Known Allergies Immunizations Given and Recorded Vaccine Date Status Refusal Reason SARS-CoV-2 mRNA (tdsvhmi-ssrf-oijvh) vax 1 12/25/21 Recorded SARS-CoV-2 mRNA (oyydguz-cxpy-emnoj) vax 09/03/21 Recorded SARS-CoV-2 mRNA (ldgxdqo-witu-nlmyg) vax 08/12/21 Recorded influenza virus vaccine, inactivated [...] other day, # 90 tablet, 0 Refills, [facility], 175, cm, 03/03/21 16:44:00 EST, Height, 84, kg, 03/01/21 15:38:00 EST, Dry Weight Start Date: 06/09/21 Status: Ordered ProAir HFA 90 mcg/inh inhalation aerosol 2 puffs, Inhalation, Every 4 hours, PRN Wheezing/Shortness of Breath, # 1 each, 5 Refills, Maintenance, 05/04/20 10:23:00 EST, Aerosol, [facility], Partial fill upon patient request if the prescription is for a schedule II opioid drug.,... Start Date: 05/04/20 Stop Date: 10/31/20 Status: Ordered Symbicort 80mcg/4.5mcg Inhaler 2, puffs, Inhalation, 2 times a day, # 30 each, Refills 0, Tot. Refills 0, Maintenance, 05/04/20 10:25:00 EST, Aerosol, Route to Pharmacy Electronically, [id number], [facility], 175, cm, 05/04/20 8:13:00 EST, He... Start Date: 05/04/20 Stop Date: 06/03/20 Status: Ordered Problem List Condition Confirmation Course Effective Dates Status Health [facility] Informant Asthma Confirmed Active Constipation Confirmed Active Genital herpes Confirmed Active Hypertension Confirmed Active Iron deficiency anemia Confirmed Active Obese class I Confirmed Active [facility] [phone] Confirmed Active Sickle cell trait Confirmed Active Social History Social History Type Response Smoking Status Never (less than 100 in lifetime) entered on: 03/01/21 Sex Patient Care team information Care Team Personnel Name: Isabella Phelan RN Position: [facility] AMB Nurse Member Role: Primary Care Nurse Name: Davey Rojas RN Position: [facility] RN Member Role: Primary Care Nurse Name: Manny Bowman NP Position: [facility] PCO Associate Professional Member Role: PCP Address: Address: [address] [place] [address]- Name: Verna Mireles RN Position: [facility] RN Member Role: Primary Care Nurse Care Team Related Persons Name: ROZ CALHOUN Address: home [address] [place] [address] Name: STEPHANIE MONSIVAIS Address: home UNKNOWN
--- OUTSIDE RECORDS SUMMARY | 2023-09-12 18:24 | XMS_ITS | Continuity of Care Document ---
Author Organization [facility] Address [address] [place] [address]- Care Team Providers Care Classroom Instructional Aide Name Role Phone Colby BRUMFIELD, Manny Valentine Primary Care Physicia n [facility]counter [facility] Date(s): 01/15/22 - 02/14/[address] [address]- Allergies, Adverse Reactions, Alerts No Known Allergies Immunizations Given and Recorded Vaccine Date Status Refusal Reason SARS-CoV-2 mRNA (zozexnh-ktdh-hnypc) vax 1 12/25/21 Recorded SARS-CoV-2 mRNA (gwpnhny-woma-nccyx) vax 09/03/21 Recorded SARS-CoV-2 mRNA (uzpscud-vykk-hpepa) vax 08/12/21 Recorded influenza virus vaccine, inactivated [...] other day, # 90 tablet, 0 Refills, [facility], 175, cm, 03/03/21 16:44:00 EST, Height, 84, kg, 03/01/21 15:38:00 EST, Dry Weight Start Date: 06/09/21 Status: Ordered ProAir HFA 90 mcg/inh inhalation aerosol 2 puffs, Inhalation, Every 4 hours, PRN Wheezing/Shortness of Breath, # 1 each, 5 Refills, Maintenance, 05/04/20 10:23:00 EST, Aerosol, [facility], Partial fill upon patient request if the prescription is for a schedule II opioid drug.,... Start Date: 05/04/20 Stop Date: 10/31/20 Status: Ordered Symbicort 80mcg/4.5mcg Inhaler 2, puffs, Inhalation, 2 times a day, # 30 each, Refills 0, Tot. Refills 0, Maintenance, 05/04/20 10:25:00 EST, Aerosol, Route to Pharmacy Electronically, [id number], [facility], 175, cm, 05/04/20 8:13:00 EST, He... Start Date: 05/04/20 Stop Date: 06/03/20 Status: Ordered Problem List Condition Confirmation Course Effective Dates Status Health [facility] Informant Asthma Confirmed Active Constipation Confirmed Active Genital herpes Confirmed Active Hypertension Confirmed Active Iron deficiency anemia Confirmed Active Obese class I Confirmed Active [facility] Care Management [facility], Radha Batres [phone] Confirmed Active Sickle cell trait Confirmed Active Social History Social History Type Response Smoking Status Never (less than 100 in lifetime) entered on: 03/01/21 Sex Patient Care team information Care Team Personnel Name: Isabella Phelan RN Position: [facility] AMB Nurse Member Role: Primary Care Nurse Name: Davey Rojas RN Position: [facility] RN Member Role: Primary Care Nurse Name: Manny Bowman NP Position: [facility] PCO Associate Professional Member Role: PCP Address: Address: [address] [place] [id number]- Name: Verna Mireles RN Position: [facility] RN Member Role: Primary Care Nurse Care Team Related Persons Name: ROZ CALHOUN Address: home [address] [place] [address] Name: STEPHANIE MONSIVAIS Address: home UNKNOWN
--- OUTSIDE RECORDS SUMMARY | 2023-09-12 18:24 | XMS_ITS | Continuity of Care Document ---
Author Organization [facility] Address [address] [place] [address]- Care Team Providers Care Hemstitching Machine Operator Name Role Phone Manny Bowman NP Primary Care Physicia n Encounter [facility] Date(s): 05/21/20 - 06/20/[address] [address]- Allergies, Adverse Reactions, Alerts Substance Reaction Severity [...] 0 Refills, Maintenance, 05/22/20 18:01:00 EDT, Gel, [facility], Partial fill upon patient request if the prescription is for a scheduleII opioid drug., 1 application Topically 2 times a... Start Date: 05/22/20 Stop Date: 05/27/20 Status: Ordered ProAir HFA 90 mcg/inh inhalation aerosol 2 puffs, Inhalation, Every 4 hours, PRN Wheezing/Shortness of Breath, # 1 each, 5 Refills, Maintenance, 05/04/20 10:23:00 EST, Aerosol, [facility], Partial fill upon patient request if the prescription is for a schedule II opioid drug.,... Start Date: 05/04/20 Stop Date: 10/31/20 Status: Ordered Symbicort 80mcg/4.5mcg Inhaler 2, puffs, Inhalation, 2 times a day, # 30 each, Refills 0, Tot. Refills 0, Maintenance, 05/04/20 10:25:00 EST, Aerosol, Route to Pharmacy Electronically, [id number], [facility], 175, cm, 05/04/20 8:13:00 [place] [facility]. Start Date: 05/04/20 Stop Date: 06/03/20 Status: Ordered Problem List Condition Effective Dates Status Health Status Inform ant Asthma(Confirmed) Active Constipation(Confirmed) Active Iron deficiency anemia(Confirmed) Active Care Management [facility] CC [phone](Confirmed) Active Sickle cell trait(Confirmed) Active Social History Social History Type Response Smoking Status Never smoker entered on: 04/01/17 Sex
--- OUTSIDE RECORDS SUMMARY | 2023-09-12 18:24 | XMS_ITS | Continuity of Care Document ---
Author Organization [facility] Address [address] [place] [address]- Care Team Providers Care Strap Folding Machine Operator Name Role Phone Colby BRUMFIELD, Manny Valentine Primary Care Physicia n [facility]counter [facility] Date(s): 04/09/21 - 05/09/[address] [address]- Allergies, Adverse Reactions, Alerts No Known Allergies [...] Refills, Maintenance, 05/22/20 18:01:00 EDT, Gel, [facility], Partial fill upon patient request if the prescription is for a scheduleII opioid drug., 1 application Topically 2 times a... Start Date: 05/22/20 Stop Date: 05/27/20 Status: Ordered clobetasol 0.05% topical cream See Instructions, Please apply dialy to affected area, # 45 Gm, 1 Refills, Maintenance, 06/25/20 15:41:00 EDT, [facility] #[id number], Partial fill upon patient request if the prescription is for a schedule II opioid drug., Please apply dialy to affected... Start Date: 06/25/20 Status: Ordered ferrous sulfate 325 mg oral tablet 1 tablet = 325 mg, By Mouth, Every other day, # 90 tablet, 0 Refills, Maintenance, 12/18/20 2:31:00EDT, Tablet, [facility][id number], Partial fill upon patient request if the prescription is for a schedule II opioid drug., 175, cm, 12/18/20 0:43:00 EDT... Start Date: 12/18/20 Status: Ordered metroNIDAZOLE 500 mg oral tablet 1 tablet = 500 mg, By Mouth, Every 12 hours, # 14 tablet, 0 Refills, Maintenance, 04/12/21 9:59:00 EST, Tablet, [id number], Partial fill upon patient request if the prescription is for a schedule II opioid drug., 175, cm, 03/03/21 16:44:00 EST... Start Date: 04/12/21 Stop Date: 04/19/21 Status: Ordered ProAir HFA 90 mcg/inh inhalation aerosol 2 puffs, Inhalation, Every 4 hours, PRN Wheezing/Shortness of Breath, # 1 each, 5 Refills, Maintenance, 05/04/20 10:23:00 EST, Aerosol, [facility], Partial fill upon patient request if the prescription is for a schedule II opioid drug.,... Start Date: 05/04/20 Stop Date: 10/31/20 Status: Ordered Provera 10 mg oral tablet 20 mg, 2, tablet, By Mouth, 3 times a day, # 84 tablet, Refills 0, Tot. Refills 0, Maintenance, 12/18/20 2:30:00 EDT, Route to Pharmacy Electronically, [facility][id number], Partial fill upon patient request if [...] 10:25:00 EST, Aerosol, Route to Pharmacy Electronically, [id number], [facility], 175, cm, 05/04/20 [...] Active Constipation(Confirmed) Active Iron deficiency anemia(Confirmed) Active [facility] Care Management [facility] Radha Parrish [phone](Confirmed) Active Sickle cell trait(Confirmed) Active Social History Social History Type Response Smoking Status Never (less than 100 in lifetime) entered on: 03/01/21 Sex
--- OUTSIDE RECORDS SUMMARY | 2023-09-12 18:24 | XMS_ITS | Continuity of Care Document ---
Author Organization [facility] Isauro jennifer Address [address] [place] [address] [address] [place] [address]- Care Team Providers Care Baker Bread Name Role Phone Colby BRUMFIELD, Manny Valentine Primary Care Physicia n Encounter [facility] Date(s): 10/21/22 - 11/20/22 [facility] [address] [place] [address]- Attending Physician: Nando Reaves Admitting Physician: AdmtrNando Referring Physician: Admtr, Ar8 Allergies, Adverse Reactions, Alerts No Known Allergies Immunizations Given and Recorded Vaccine Date Status Refusal Reason SARS-CoV-2 mRNA (omfnord-saac-qsefc) vax 1 12/25/21 Recorded SARS-CoV-2 mRNA (klploqw-nmot-bicat) vax 09/03/21 Recorded SARS-CoV-2 mRNA (ukgonhy-uaxz-ibdxc) vax 08/12/21 Recorded influenza virus vaccine, inactivated [...] 90 tablet, 0 Refills, [facility] [address], 175, cm, 03/03/21 16:44:00 EST, Height, 84, kg, 03/01/21 15:38:00 EST, Dry Weight Start Date: 06/09/21 Status: Ordered ProAir HFA 90 mcg/inh inhalation aerosol 2 puffs, Inhalation, Every 4 hours, PRN Wheezing/Shortness of Breath, # 1 each, 5 Refills, Maintenance, 05/04/20 10:23:00 EST, Aerosol, [facility], Partial fill upon patient request if the prescription is for a schedule II opioid drug.,... Start Date: 05/04/20 Stop Date: 10/31/20 Status: Ordered Symbicort 80mcg/4.5mcg Inhaler 2, puffs, Inhalation, 2 times a day, # 30 each, Refills 0, Tot. Refills 0, Maintenance, 05/04/20 10:25:00 EST, Aerosol, Route to Pharmacy Electronically, [id number], [facility], 175, cm, 05/04/20 8:13:00 EST, He... Start Date: 05/04/20 Stop Date: 06/03/20 Status: Ordered Problem List Condition Confirmation Course Effective Dates Status Health St [facility] Informant Asthma Confirmed Active Constipation Confirmed Active Genital herpes Confirmed Active Hypertension Confirmed Active Iron deficiency anemia Confirmed Active [facility] Care Management [facility] Radha Medardo [phone] Confirmed Active Sickle cell trait Confirmed Active Social History Social History Type Response Smoking Status Never (less than 100 in lifetime) entered on: 03/01/21 Sex Patient Care team information Care Team Personnel Name: Davey Rojas RN Position: S RN Member Role: Primary Care Nurse Name: Manny Bowman NP Position: [facility] PCO Associate Professional Member Role: PCP Address: Address: [address] [place] [id number] [place] Name: Verna Mireles RN Position: S RN Member Role: Primary Care Nurse Care Team Related Persons Name: STEPHANIE MONSIVAIS Address: home UNKNOWN
--- OUTSIDE RECORDS SUMMARY | 2023-09-12 18:24 | XMS_ITS | Continuity of Care Document ---
Author Organization [facility] Address [address] [place] [address]- Care Team Providers Care Corporate Executive Name Role Phone Colby BRUMFIELD, Manny Valentine Primary Care Physicia n [facility] Date(s): 02/10/22 - 03/12/[address] [address]- Allergies, Adverse Reactions, Alerts No Known Allergies Immunizations Given and Recorded Vaccine Date Status Refusal Reason SARS-CoV-2 mRNA (axuihqa-vdxy-lxatx) vax 1 12/25/21 Recorded SARS-CoV-2 mRNA (pkezpkw-dudt-zmuwn) vax 09/03/21 Recorded SARS-CoV-2 mRNA (iwkcfim-tkbq-kmtvx) vax 08/12/21 Recorded influenza virus vaccine, inactivated [...] other day, # 90 tablet, 0 Refills, [id number], 175, cm, 03/03/21 16:44:00 EST, Height, 84, kg, 03/01/21 15:38:00 EST, Dry Weight Start Date: 06/09/21 Status: Ordered ProAir HFA 90 mcg/inh inhalation aerosol 2 puffs, Inhalation, Every 4 hours, PRN Wheezing/Shortness of Breath, # 1 each, 5 Refills, Maintenance, 05/04/20 10:23:00 EST, Aerosol, [facility], Partial fill upon patient request if the prescription is for a schedule II opioid drug.,... Start Date: 05/04/20 Stop Date: 10/31/20 Status: Ordered Symbicort 80mcg/4.5mcg Inhaler 2, puffs, Inhalation, 2 times a day, # 30 each, Refills 0, Tot. Refills 0, Maintenance, 05/04/20 10:25:00 EST, Aerosol, Route to Pharmacy Electronically, [id number], [facility], 175, cm, 05/04/20 8:13:00 EST, He... Start Date: 05/04/20 Stop Date: 06/03/20 Status: Ordered Problem List Condition Confirmation Course Effective Dates Status Health St [facility] Informant Asthma Confirmed Active Constipation Confirmed Active Genital herpes Confirmed Active Hypertension Confirmed Active Iron deficiency anemia Confirmed Active Obese class I Confirmed Active [phone] Confirmed Active Sickle cell trait Confirmed Active Social History Social History Type Response Smoking Status Never (less than 100 in lifetime) entered on: 03/01/21 Sex Patient Care team information Care Team Personnel Name: Isabella Phelan RN Position: [facility] AMB Nurse Member Role: Primary Care Nurse Name: Davey Rojas RN Position: [facility] RN Member Role: Primary Care Nurse Name: Manny Bowman NP Position: [facility] PCO Associate Professional Member Role: PCP Address: Address: [address] [place] [id number]- Name: Verna Mireles RN Position: [facility] RN Member Role: Primary Care Nurse Care Team Related Persons Name: ROZ CALHOUN Address: home [address] [place] [address] Name: STEPHANIE MONSIVAIS Address: home UNKNOWN
--- OUTSIDE RECORDS SUMMARY | 2023-09-12 18:24 | XMS_ITS | Continuity of Care Document ---
Author Organization [facility] Address [address] [place] [address]- Care Team Providers Care Brush Cutter Name Role Phone Colby BRUMFIELD, Manny Valentine Primary Care Physicia n [facility] Date(s): 01/06/22 - 02/05/[address] [address]- Allergies, Adverse Reactions, Alerts No Known Allergies Immunizations Given and Recorded Vaccine Date Status Refusal Reason SARS-CoV-2 mRNA (ytfplft-zvqr-rdhoa) vax 1 12/25/21 Recorded SARS-CoV-2 mRNA (udgadel-tybl-uooos) vax 09/03/21 Recorded SARS-CoV-2 mRNA (etutbwr-jawt-jfzgw) vax 08/12/21 Recorded influenza virus vaccine, inactivated [...] other day, # 90 tablet, 0 Refills, [id number], 175, cm, 03/03/21 16:44:00 EST, Height, 84, kg, 03/01/21 15:38:00 EST, Dry Weight Start Date: 06/09/21 Status: Ordered ProAir HFA 90 mcg/inh inhalation aerosol 2 puffs, Inhalation, Every 4 hours, PRN Wheezing/Shortness of Breath, # 1 each, 5 Refills, Maintenance, 05/04/20 10:23:00 EST, Aerosol, [facility], Partial fill upon patient request if the prescription is for a schedule II opioid drug.,... Start Date: 05/04/20 Stop Date: 10/31/20 Status: Ordered Symbicort 80mcg/4.5mcg Inhaler 2, puffs, Inhalation, 2 times a day, # 30 each, Refills 0, Tot. Refills 0, Maintenance, 05/04/20 10:25:00 EST, Aerosol, Route to Pharmacy Electronically, [id number], [facility], 175, cm, 05/04/20 8:13:00 EST, He... Start Date: 05/04/20 Stop Date: 06/03/20 Status: Ordered Problem List Condition Confirmation Course Effective Dates Status Health St at[facility] Informant Asthma Confirmed Active Constipation Confirmed Active Genital herpes Confirmed Active Hypertension Confirmed Active Iron deficiency anemia Confirmed Active Obese class I Confirmed Active [facility] Care Management [facility], Radha Batres [phone] Confirmed Active Sickle cell trait Confirmed Active Social History Social History Type Response Smoking Status Never (less than 100 in lifetime) entered on: 03/01/21 Sex Patient Care team information Care Team Personnel Name: Isabella Phelan RN Position: [facility] AMB Nurse Member Role: Primary Care Nurse Name: Davey Rojas RN Position: [facility] RN Member Role: Primary Care Nurse Name: Manny Bowman NP Position: [facility] PCO Associate Professional Member Role: PCP Address: Address: [address] [place] [id number]- Name: Verna Mireles RN Position: [facility] RN Member Role: Primary Care Nurse Care Team Related Persons Name: ROZ CALHOUN Address: home [address] [place] [address] Name: STEPHANIE MONSIVAIS Address: home UNKNOWN
--- OUTSIDE RECORDS SUMMARY | 2023-09-12 18:24 | XMS_ITS | Continuity of Care Document ---
Author Organization [facility] Address [address] [place] [address]- Care Team Providers Care Hand Cementer Name Role Phone Colby BRUMFIELD, Manny Valentine Primary Care Physicia n [facility] Date(s): 10/28/22 - 11/27/[address] [address]- Allergies, Adverse Reactions, Alerts No Known Allergies Immunizations Given and Recorded Vaccine Date Status Refusal Reason SARS-CoV-2 mRNA (rplahhy-sbmj-rqbjs) vax 1 12/25/21 Recorded SARS-CoV-2 mRNA (emvptvz-lfwl-xyduh) vax 09/03/21 Recorded SARS-CoV-2 mRNA (zkrzyxp-ertr-siree) vax 08/12/21 Recorded influenza virus vaccine, inactivated [...] # 90 tablet, 0 Refills, [id number], 175, cm, 03/03/21 16:44:00 EST, Height, 84, kg, 03/01/21 15:38:00 EST, Dry Weight Start Date: 06/09/21 Status: Ordered hydrocortisone/neomycin/polymyxin B otic 1%-0.35%-40623 u/ml solution 2 drops, Ear, Left, 4 times a day, for 10 days, # 10 mL, 1 Refills, Acute 12/13/22 15:17:00 EDT, 11/23/22 15:17:00 EDT, Otic Solution, [id number], Partial fill upon patient request if the prescription is for a schedule II opioid drug., 2 drops... Start Date: 11/23/22 Stop Date: 12/13/22 Status: Ordered ProAir HFA 90 mcg/inh inhalation [...] 10:25:00 EST, Aerosol, Route to Pharmacy Electronically, [id number], [facility], 175, cm, 05/04/20 8:13:00 EST, He... Start Date: 05/04/20 Stop Date: 06/03/20 Status: Ordered Problem List Condition Confirmation Course Effective Dates Status Health St atus Informant Asthma Confirmed Active Constipation Confirmed Active Genital herpes Confirmed Active Hypertension Confirmed Active Iron deficiency anemia Confirmed Active [facility] Care Management [facility], Radha Batres [phone] Confirmed Active Sickle cell trait Confirmed Active Social History Social History Type Response Smoking Status Never (less than 100 in lifetime) entered on: 03/01/21 Sex Patient Care team information Care Team Personnel Name: Davey Rojas RN Position: S RN Member Role: Primary Care Nurse Name: Manny Bowman NP Position: [facility] PCO Associate Professional Member Role: PCP Address: Address: [address] [place] [address]- Name: Verna Mireles RN Position: S RN Member Role: Primary Care Nurse Care Team Related Persons Name: STEPHANIE MONSIVAIS Address: home UNKNOWN
--- OUTSIDE RECORDS SUMMARY | 2023-09-12 18:24 | XMS_ITS | Continuity of Care Document ---
Author Organization [facility] Address [address] [place] [address]- Care Team Providers Care Mountain Guide Name Role Phone Colby BRUMFIELD, Manny Valentine Primary Care Physicia n Encounter [facility] [id number] Date(s): 11/23/22 - 12/23/[address] [address]- Encounter Diagnosis Psychosis 298.9(Discharge Diagnosis) - 04/13/13 Attending Physician: Admtr, Ar8 Allergies, Adverse Reactions, Alerts No Known Allergies Immunizations Given and Recorded Vaccine Date Status Refusal Reason SARS-CoV-2 mRNA (mzhhsrq-lpcg-vcroa) vax 1 12/25/21 Recorded SARS-CoV-2 mRNA (pztiwdt-lhju-mxsiz) vax 09/03/21 Recorded SARS-CoV-2 mRNA (shvbsbx-zope-rvkjm) vax 08/12/21 Recorded influenza virus vaccine, inactivated [...] # 90 tablet, 0 Refills, [id number], 175, cm, 03/03/21 16:44:00 EST, Height, 84, kg, 03/01/21 15:38:00 EST, Dry Weight Start Date: 06/09/21 Status: Ordered ProAir HFA 90 mcg/inh inhalation aerosol 2 puffs, Inhalation, Every 4 hours, PRN Wheezing/Shortness of Breath, # 1 each, 5 Refills, Maintenance, 05/04/20 10:23:00 EST, Aerosol, [facility], Partial fill upon patient request if the prescription is for a schedule II opioid drug.,... Start Date: 05/04/20 Stop Date: 10/31/20 Status: Ordered Symbicort 80mcg/4.5mcg Inhaler 2, puffs, Inhalation, 2 times a day, # 30 each, Refills 0, Tot. Refills 0, Maintenance, 05/04/20 10:25:00 EST, Aerosol, Route to Pharmacy Electronically, [id number], [facility], 175, cm, 05/04/20 8:13:00 EST, He... Start Date: 05/04/20 Stop Date: 06/03/20 Status: Ordered Problem List Condition Confirmation Course Effective Dates Status Health St at[facility] Informant Asthma Confirmed Active Constipation Confirmed Active Genital herpes Confirmed Active Hypertension Confirmed Active Iron deficiency anemia Confirmed Active [facility] Care Management [facility], Radha Batres [phone] Confirmed Active Sickle cell trait Confirmed Active Vital Signs Most recent to oldest [Reference Range]: 1 Height 169.00 cm (02/16/08 11:36 AM) Social History Social History Type Response Smoking Status Never (less than 100 in lifetime) entered on: 03/01/21 Sex Radiology * Event Display: Non Radiology Results Authored Date: Patient Care team information Care Team Personnel Name: Davey Rojas RN Position: [facility] RN Member Role: Primary Care Nurse Name: Manny Bowman NP Position: [facility] PCO Associate Professional Member Role: PCP Address: Address: [address] [place] [id number] Name: Verna Mireles RN Position: [facility] RN Member Role: Primary Care Nurse Care Team Related Persons Name: STEPHANIE MONSIVAIS Address: home UNKNOWN
--- OUTSIDE RECORDS SUMMARY | 2023-09-12 18:24 | XMS_ITS | Continuity of Care Document ---
Author Organization [facility] Address [address] [place] [address]- Care Team Providers Care Certified Drug Counselor Name Role Phone Manny Bowman NP Primary Care Physicia n [id number]/07/22 - 01/14/22 [facility] [address] [place] [address]- Attending Physician: Lilli Foreman MD Referring Physician: Manny Bowman NP Allergies, Adverse Reactions, Alerts No Known Allergies Immunizations Given and Recorded Vaccine Date Status Refusal Reason influenza virus vaccine, inactivated 12/23/21 Give n influenza virus vaccine, inactivated 01/04/20 Brien rded influenza virus vaccine, inactivated 12/20/18 Give n SARS-CoV-2 mRNA (zoseakc-ublh-pcaht) vax 09/03/21 Recorded SARS-CoV-2 mRNA (zjcfcev-fhdv-ipqkj) vax 08/12/21 Recorded tetanus-diphtheria toxoids (Td) 09/20/16 [...] EDT, Supply Start Date: 01/02/22 Status: Ordered doxycycline hyclate 100 mg oral tablet 1 tablet = 100 mg, By Mouth, 2 times a day, for 10 days, # 20 tablet, 0 Refills, Acute 01/17/22 8:53:00 EST, 01/07/22 8:53:00 EDT, Tablet, [facility] #[id number], Partial fill upon patient request if theprescription is for a schedule II opioid drug., 175... Start Date: 01/07/22 Stop Date: 01/17/22 Status: Ordered ferrous sulfate 325 mg oral tablet 1 tablet, By Mouth, Every other day, # 90 tablet, 0 Refills, [id number], 175, cm, 03/03/21 16:44:00 EST, Height, 84, kg, 03/01/21 15:38:00 EST, Dry Weight Start Date: 06/09/21 Status: Ordered predniSONE 10 mg oral tablet See Instructions, 5 tab x 3d, 4 tab x 2d, 3 tab x 2d, 2 tab x 2d. 1st dose now, then in AM daily. take w/food, # 33 tablet, 0 Refills, Acute 01/15/22 11:00:00 EST, 01/07/22 9:44:00 EDT, [facility]/pharmacy #[id number], Partial fill upon patient request if the pres... Start Date: 01/07/22 Stop Date: 01/15/22 Status: Ordered ProAir HFA 90 mcg/inh inhalation [...] 10:25:00 EST, Aerosol, Route to Pharmacy Electronically, [id number], [facility], 175, cm, 05/04/20 8:13:00 EST, He... Start Date: 05/04/20 Stop Date: 06/03/20 Status: Ordered Problem List Condition Confirmation Course Effective Dates Status Health St atus Informant Asthma Confirmed Active Constipation Confirmed Active Hypertension Confirmed Active Iron deficiency anemia Confirmed Active Obese class I Confirmed Active [facility] Care Management [facility], Radha Medardo [phone] Confirmed Active Sickle cell trait Confirmed Active Vital Signs Most recent to oldest [Reference Range]: 1 Height 175 cm (01/07/22 9:25 AM) Oxygen Saturation [94-100 %] 100 % (01/07/22 9:25 AM) Pulse Rate [55-90 bpm] 87 bpm (01/07/22 9:25 AM) Blood Pressure [90-138/55-84 mm Hg] 163/ 96mm Hg *H* (01/07/22 9:25 AM) Respiratory Rate [16-30 br/min] 20 br/mi n (01/07/22 9:25 AM) Temperature [96.8-100.4 DegF] 98.0 DegF (01/07/22 9:25 AM) Mode of Delivery (Oxygen) Room air (01/07/22 9:25 AM) Blood pressure sites Arm, left (01/07/22 9:25 AM) Temperature Route Temporal (01/07/22 9:25 AM) Social History Social History Type Response Smoking Status Never (less than 100 in lifetime) entered on: 03/01/21 Sex Note * Marlene Banuelos: PERFORM, SIGN, VERIFY Event Display: Patient Education/Instruction Authored Date: [id number] [facility] *[facility] Clinical Summary Name TIKA CALHOUN Age 31 Years 1990 PCP Colby DIRECTOR OF ONLINE EDUCATION, Manny Valentine PCP Visit Date 01/07/2022 09:17:00 Additional Instructions: Scheduled Appointments?? Future Appointments ?*[facility] [address]??[place],??[place],??[address] ?Phone:??--?Fax:??-- ?Appt. Date:??01/08/2022?10:40 AM ?Scheduled Provider:??Mayuri CATHERINE , Alina Melvin ?*[facility]??[place],??[place],??[address] ?Phone:??--?Fax:??-- ?Appt. Date:??01/16/2022?11:20 AM ?Scheduled Provider:??Colby BRUMFIELD , Manny White Follow-Up Instructions ?? Diagnosis Medications: Please continue your medications until treatment is completed or stopped by your provider. Discuss any questions related to medications with your provider. New Medications [id number], [address] [place], [place] [id number], [phone] PredniSONE (predniSONE 10 mg oral tablet) 5 tab x 3d, 4 tab x 2d, 3 tab x 2d, 2 tab x 2d. 1st dose now, then in AM daily. take w/food. Refills: 0. Next Dose: Medications to Continue with No Changes These medications were not printed or sent to your pharmacy Acetaminophen (Tylenol 325 mg oral tablet) 3 tab(s) Oral every 6 hours as needed Pain , Mild. Next Dose: Albuterol (ProAir HFA 90 mcg/inh inhalation aerosol) 2 puff(s) Inhalation every 4 hours as needed Wheezing/Shortness of Breath for 30 Days. Refills: 5. Next Dose: Budesonide-Formoterol (Symbicort 80mcg/4.5mcg Inhaler) 2 puff(s) Inhalation twice a day for 30 Days. Refills: 0. Next Dose: Clindamycin Topical (clindamycin 1% topical gel) 1 thais Topically twice a day for 5 Days. Refills: 0. Next Dose: Clobetasol Topical (clobetasol 0.05% topical cream) Please apply dialy to affected area. Refills: 1. Next Dose: Doxycycline (doxycycline hyclate 100 mg oral tablet) 1 tab(s) Oral twice a day for 10 Days. Refills: 0. Next Dose: Durable Medical Equipment (Blood Pressure Monitor) check daily. Refills: 0. Next Dose: Ferrous Sulfate (ferrous sulfate 325 mg oral tablet) 1 tab(s) Oral every other day. Refills: 0. Next Dose: Hydrocortisone/Neomycin/Polymyxin B Otic (hydrocortisone/neomycin/polymyxin B otic 1%-0.35%-42794 u/ml solution) 4 Drops Right ear 3 times a day for 7 Days. Refills: 0. Next Dose: MedroxyPROGESTERone (Provera 10 mg oral tablet) 1 tab(s) Oral twice a day for 10 Days. Refills: 0. Next Dose: MedroxyPROGESTERone (Provera 10 mg oral tablet) 2 tab(s) Oral 3 times a day for 14 Days. Refills: 0. Next Dose: Metronidazole (metroNIDAZOLE 500 mg oral tablet) 1 tab(s) Oral every 12 hours for 7 Days. Refills: 0. Next Dose: Allergy Info:?? NKA Medications Given This Visit Future Orders ?No future orders Vital Signs Height 175 cm Weight BMI Blood Pressure 163 mm Hg/96 mm Hg Temperature 98.0 DegF Pulse Rate 87 bpm Respiratory Rate 20 br/min 02 Sat Mode of Delivery 100 %/Room air You can now view a summary of your hospital visit from the comfort of your home through a free online portal called [employer]. [employer] is a website that allows you to securely view your medical information including discharge summary, medications and follow-up visits. ??You can alsosend a secure electronic message to your doctor???s office to request appointments, renew medications or just ask a question. You can enroll at [email or web address] or register during your next office visit. Disclaimer:?? The information provided is of a general nature and is intended to be used in conjunction with the recommendations and advice of your health care practitioner. ??Every effort has been made to ensure that the information provided is accurate and complete at the time it is provided to you however, as your needs change, or, as new ??information becomes available, different or additional instructions may be required. If you have questions, please consult with your primary care provider or pharmacist, as appropriate. ??This information is not intended to serve as substitution for assessment and evaluation by a qualified health care provider. If you do not have a primary care provider, you may find a [facility] provider by calling [facility] [employer] at [phone]. For information about the plan of care including goals and instructions for your diagnosis, please see the patient education orders section of this document. Patient Education Materials?? The content of this educational material or handout may have been modified, supplemented, or adapted from its original content and format to support your individualized medical care. Patient Care team information Care Team Personnel Name: Isabella Phelan RN Position: [facility] AMB Nurse Member Role: Primary Care Nurse Name: Davey Rojas RN Position: [facility] RN Member Role: Primary Care Nurse Name: Manny Bowman NP Position: [facility] PCO Associate Professional Member Role: PCP Address: Address: [address] Name: Aline ANTONIO, Verna Position: [facility] RN Member Role: Primary Care Nurse Care Team Related Persons Name: ROZ CALHOUN Address: home [address] [place] [id number] Name: STEPHANIE MONSIVAIS Address: home UNKNOWN
--- OUTSIDE RECORDS SUMMARY | 2023-09-12 18:24 | XMS_ITS | Continuity of Care Document ---
Author Organization [facility] ter Address [address] [place] [id number]- Care Team Providers Care Tile Designer Name Role Phone Colby BRUMFIELD, Manny Valentine Primary Care Physicia n Encounter [facility] Date(s): 12/08/21 - 12/08/[address] [address]- Encounter Diagnosis Panic attack(Final) - 12/08/21 Discharge Disposition: A-D/C Home Attending Physician: Herbert Oconnell MD Admitting Physician: Herbert Oconnell MD Referring Physician: Not on Staff, Referring [...] Gm, 0 Refills, Maintenance, 05/22/20 18:01:00 EDT, [facility], [facility] 3, Partial fill upon patient request if the prescription is for a scheduleII opioid drug., 1 application Topically 2 times a... Start Date: 05/22/20 Stop Date: 05/27/20 Status: Ordered clobetasol 0.05% topical cream See Instructions, Please apply dialy to affected area, # 45 Gm, 1 Refills, Maintenance, 06/25/20 15:41:00 EDT, [facility]/pharmacy #[id number], Partial fill upon patient request if the prescription is for a schedule II opioid drug., Please apply dialy to affected... Start Date: 06/25/20 Status: Ordered ferrous sulfate 325 mg oral tablet 1 tablet, By Mouth, Every other day, # 90 tablet, 0 Refills, [facility] STORE [id number], 175, cm, 03/03/21 16:44:00 EST, Height, 84, kg, 03/01/21 15:38:00 EST, Dry Weight Start Date: 06/09/21 Status: Ordered metroNIDAZOLE 500 mg oral tablet 1 tablet = 500 mg, By Mouth, Every 12 hours, # 14 tablet, 0 Refills, Maintenance, 04/12/21 9:59:00 EST, Tablet, [facility]/pharmacy #[id number], Partial fill upon patient request if the prescription is for a schedule II opioid drug., 175, cm, 03/03/21 16:44:00 EST... Start Date: 04/12/21 Stop Date: 04/19/21 Status: Ordered ProAir HFA 90 mcg/inh inhalation aerosol 2 puffs, Inhalation, Every 4 hours, PRN Wheezing/Shortness of Breath, # 1 each, 5 Refills, Maintenance, 05/04/20 10:23:00 EST, Aerosol, [facility] 3, Partial fill upon patient request if the prescription is for a schedule II opioid drug.,... Start Date: 05/04/20 Stop Date: 10/31/20 Status: Ordered Provera 10 mg oral tablet 20 mg, 2, tablet, By Mouth, 3 times a day, # 84 tablet, Refills 0, Tot. Refills 0, Maintenance, 12/18/20 2:30:00 EDT, Route to Pharmacy Electronically, [facility]/pharmacy #[id number], Partial fill upon [...] 10:25:00 EST, Aerosol, Route to Pharmacy Electronically, [id number], [facility], 175, cm, 05/04/20 8:13:00 [...] Date: 03/03/21 Status: Ordered Problem List Condition Confirmation Course Effective Dates Status Health St atus Informant Asthma Confirmed Active Constipation Confirmed Active Iron deficiency anemia Confirmed Active N Care Management [facility], Radha Batres [phone] Confirmed Active Sickle cell trait Confirmed Active Vital Signs Most recent to oldest [Reference Range]: 1 2 3 Height 175 cm (12/08/21 4:39 PM) 175 cm (12/08/21 1:55 PM) 175 cm (12/08/21 1:34 PM) Weight 82 kg (12/08/21 4:39 PM) 82 kg (12/08/21 1:55 PM) 82 kg (12/08/21 1:34 PM) Oxygen Saturation [94-100 %] 100 % (12/08/21 4:39 PM) 100 % (12/08/21 1:34 PM) Pulse Rate [55-90 bpm] 64 bpm (12/08/21 4:39 PM) 62 bpm (12/08/21 1:34 PM) Body Mass Index [18.5-24.99 kg/m2] 26.78 kg/m2 *H* (12/08/21 1:34 PM) Blood Pressure [90-138/55-84 mm Hg] 152/109mm Hg *H* (12/08/21 4:39 PM) 161/93mm Hg *H* (12/08/21 1:34 PM) Respiratory Rate [16-30 br/min] 16 br/min (12/08/21 4:39 PM) 19 br/min (12/08/21 1:34 PM) Temperature [96.8-100.4 DegF] 98.2 DegF (12/08/21 1:34 PM) Mode of Delivery (Oxygen) Room air (12/08/21 4:39 PM) Room air (12/08/21 1:34 PM) Blood pressure sites Arm, left (12/08/21 4:39 PM) Arm, right (12/08/21 1:34 PM) Temperature Route Oral (12/08/21 1:34 PM) Dry Weight 82 kg (12/08/21 4:39 PM) 82 kg (12/08/21 1:55 PM) 82 kg (12/08/21 1:34 PM) Weight Obtained Via Patient/family state d (12/08/21 1:34 PM) Dry Weight Obtained Via Patient/family s tated (12/08/21 1:34 PM) Social History Social History Type Response Smoking Status Never (less than 100 in lifetime) entered on: 03/01/21 Sex Patient Care team information Personnel Name: Manny Bowman NP Address: Address: [address], [place] [address]
--- OUTSIDE RECORDS SUMMARY | 2023-09-12 18:24 | XMS_ITS | Continuity of Care Document ---
Author Organization [facility] Address [address] [place] [address]- Care Team Providers Care Tower Switch Operator Name Role Phone Colby BRUMFIELD, Manny Valentine Primary Care Physicia n [place] [facility] [place] 03/14/21 - 04/16/[address] [address]- Attending Physician: Not on Staff, Attending MD [...] 0 Refills, Maintenance, 05/22/20 18:01:00 EDT, Gel, [facility], Partial fill upon patient request if the prescription is for a scheduleII opioid drug., 1 application Topically 2 times a... Start Date: 05/22/20 Stop Date: 05/27/20 Status: Ordered clobetasol 0.05% topical cream See Instructions, Please apply dialy to affected area, # 45 Gm, 1 Refills, Maintenance, 06/25/20 15:41:00 EDT, [facility]/pharmacy #[id number], Partial fill upon patient request if the prescription is for a schedule II opioid drug., Please apply dialy to affected... Start Date: 06/25/20 Status: Ordered ferrous sulfate 325 mg oral tablet 1 tablet = 325 mg, By Mouth, Every other day, # 90 tablet, 0 Refills, Maintenance, 12/18/20 2:31:00EDT, Tablet, [facility]/pharmacy #[id number], Partial fill upon patient request if the prescription is for a schedule II opioid drug., 175, cm, 12/18/20 0:43:00 EDT... Start Date: 12/18/20 Status: Ordered metroNIDAZOLE 500 mg oral tablet 1 tablet = 500 mg, By Mouth, Every 12 hours, # 14 tablet, 0 Refills, Maintenance, 04/12/21 9:59:00 EST, Tablet, [facility]/pharmacy #[id number], Partial fill upon patient request if the prescription is for a schedule II opioid drug., 175, cm, 03/03/21 16:44:00 EST... Start Date: 04/12/21 Stop Date: 04/19/21 Status: Ordered ProAir HFA 90 mcg/inh inhalation aerosol 2 puffs, Inhalation, Every 4 hours, PRN Wheezing/Shortness of Breath, # 1 each, 5 Refills, Maintenance, 05/04/20 10:23:00 EST, Aerosol, [facility] 3, Partial fill upon patient request if the prescription is for a schedule II opioid drug.,... Start Date: 05/04/20 Stop Date: 10/31/20 Status: Ordered Provera 10 mg oral tablet 20 mg, 2, tablet, By Mouth, 3 times a day, # 84 tablet, Refills 0, Tot. Refills 0, Maintenance, 12/18/20 2:30:00 EDT, Route to Pharmacy Electronically, [facility]/pharmacy #[id number], Partial fill upon patient request if the prescription is for a schedule II opio... Start Date: 12/18/20 Stop Date: 01/01/21 Status: Ordered Provera 10 mg oral tablet 10 mg, 1, tablet, By Mouth, 2 times a day, # 20 tablet, Refills 0, Tot. Refills 0, Maintenance, 12/02/20 15:53:00 EDT, Route to Pharmacy Electronically, [facility]/pharmacy #[id number], Partial fill upon patient request if the prescription is for a schedule II opi... Start Date: 12/02/20 Stop Date: 12/12/20 Status: Ordered Symbicort 80mcg/4.5mcg Inhaler 2, puffs, Inhalation, 2 times a day, # 30 each, Refills 0, Tot. Refills 0, Maintenance, 05/04/20 10:25:00 EST, Aerosol, Route to Pharmacy Electronically, [id number], [facility], 175, cm, 05/04/20 8:13:00 [...] Active Constipation(Confirmed) Active Iron deficiency anemia(Confirmed) Active [facility] Care Management [facility] Radha [phone](Confirmed) Active Sickle cell trait(Confirmed) Active Social History Social History Type Response Smoking Status Never (less than 100 in lifetime) entered on: 03/01/21 Sex
--- OUTSIDE RECORDS SUMMARY | 2023-09-12 18:24 | XMS_ITS | Continuity of Care Document ---
Author Organization [facility] Address [address] [place] [address]- Care Team Providers Care Communications Representative Name Role Phone Colby BRUMFIELD, Manny Valentine Primary Care Physicia n Encounter [facility] Date(s): 12/02/20 - [facility]01/21 [facility] [address] [place] [address]- Allergies, Adverse Reactions, Alerts Substance Reaction Severity [...] Maintenance, 05/22/20 18:01:00 EDT, Gel, [facility], Partial fill upon patient request if the prescription is for a scheduleII opioid drug., 1 application Topically 2 times a... Start Date: 05/22/20 Stop Date: 05/27/20 Status: Ordered clobetasol 0.05% topical cream See Instructions, Please apply dialy to affected area, # 45 Gm, 1 Refills, Maintenance, 06/25/20 15:41:00 EDT, [facility]/pharmacy #[id number], Partial fill upon patient request if the prescription is for a schedule II opioid drug., Please apply dialy to affected... Start Date: 06/25/20 Status: Ordered ferrous sulfate 325 mg oral tablet 1 tablet = 325 mg, By Mouth, Every other day, # 90 tablet, 0 Refills, Maintenance, 12/18/20 2:31:00EDT, Tablet, [facility]/pharmacy #[id number], Partial fill upon patient request if the prescription is for a schedule II opioid drug., 175, cm, 12/18/20 0:43:00 EDT... Start Date: 12/18/20 Status: Ordered metroNIDAZOLE 500 mg oral tablet 1 tablet = 500 mg, By Mouth, Every 12 hours, # 14 tablet, 0 Refills, Maintenance, 06/26/20 15:21:00EDT, Tablet, [facility]/pharmacy #[id number], Partial fill upon patient request if the prescription is for a schedule II opioid drug., 175, cm, 06/25/20 15:06:00 ED... Start Date: 06/26/20 Stop Date: 07/03/20 Status: Ordered ProAir HFA 90 mcg/inh inhalation aerosol 2 puffs, Inhalation, Every 4 hours, PRN Wheezing/Shortness of Breath, # 1 each, 5 Refills, Maintenance, 05/04/20 10:23:00 EST, Aerosol, [facility] 3, Partial fill upon patient request if the prescription is for a schedule II opioid drug.,... Start Date: 05/04/20 Stop Date: 10/31/20 Status: Ordered Provera 10 mg oral tablet 20 mg, 2, tablet, By Mouth, 3 times a day, # 84 tablet, Refills 0, Tot. Refills 0, Maintenance, 12/18/20 2:30:00 EDT, Route to Pharmacy Electronically, [facility]/pharmacy #[id number], Partial fill upon patient request if the prescription is for a schedule II opio... Start Date: 12/18/20 Stop Date: 01/01/21 Status: Ordered Provera 10 mg oral tablet 10 mg, 1, tablet, By Mouth, 2 times a day, # 20 tablet, Refills 0, Tot. Refills 0, Maintenance, 12/02/20 15:53:00 EDT, Route to Pharmacy Electronically, [facility]/pharmacy #[id number], Partial fill upon patient request if the prescription is for a schedule II opi... Start Date: 12/02/20 Stop Date: 12/12/20 Status: Ordered Symbicort 80mcg/4.5mcg Inhaler 2, puffs, Inhalation, 2 times a day, # 30 each, Refills 0, Tot. Refills 0, Maintenance, 05/04/20 10:25:00 EST, Aerosol, Route to Pharmacy Electronically, [id number], [facility] 3, 175, cm, 05/04/20 8:13:00 Catalina SALEH Start Date: 05/04/20 Stop Date: 06/03/20 Status: Ordered Problem List Condition Effective Dates Status Health Status Inform ant Asthma(Confirmed) Active Constipation(Confirmed) Active Iron deficiency anemia(Confirmed) Active Sickle cell trait(Confirmed) Active Social History Social History Type Response Smoking Status Never smoker entered on: 04/01/17 Sex
--- OUTSIDE RECORDS SUMMARY | 2023-09-12 18:24 | XMS_ITS | Continuity of Care Document ---
Author Organization [facility] Address [address] [place] [address]- Care Team Providers Care Melter Helper Name Role Phone Colby BRUMFIELD, Manny Valentine Primary Care Physicia n [place] [facility] [place] 01/24[place] - 03/02/[address] [address]- Attending Physician: Amita Jonas MD Admitting Physician: Amita Jonas MD Referring Physician: Kaila Vora NP Allergies, Adverse Reactions, Alerts Substance Reaction [...] Refills, Maintenance, 05/22/20 18:01:00 EDT, Gel, [facility], Partial fill upon patient request if the prescription is for a scheduleII opioid drug., 1 application Topically 2 times a... Start Date: 05/22/20 Stop Date: 05/27/20 Status: Ordered clobetasol 0.05% topical cream See Instructions, Please apply dialy to affected area, # 45 Gm, 1 Refills, Maintenance, 06/25/20 15:41:00 EDT, [facility]/pharmacy #[id number], Partial fill upon patient request if the prescription is for a schedule II opioid drug., Please apply dialy to affected... Start Date: 06/25/20 Status: Ordered ferrous sulfate 325 mg oral tablet 1 tablet = 325 mg, By Mouth, Every other day, # 90 tablet, 0 Refills, Maintenance, 12/18/20 2:31:00EDT, Tablet, [facility]/pharmacy #[id number], Partial fill upon patient request if the prescription is for a schedule II opioid drug., 175, cm, 12/18/20 0:43:00 EDT... Start Date: 12/18/20 Status: Ordered metroNIDAZOLE 500 mg oral tablet 1 tablet = 500 mg, By Mouth, Every 12 hours, # 14 tablet, 0 Refills, Maintenance, 06/26/20 15:21:00EDT, Tablet, [facility]/pharmacy #[id number], Partial fill upon patient request if the prescription is for a schedule II opioid drug., 175, cm, 06/25/20 15:06:00 ED... Start Date: 06/26/20 Stop Date: 07/03/20 Status: Ordered ProAir HFA 90 mcg/inh inhalation aerosol 2 puffs, Inhalation, Every 4 hours, PRN Wheezing/Shortness of Breath, # 1 each, 5 Refills, Maintenance, 05/04/20 10:23:00 EST, Aerosol, [facility] 3, Partial fill upon patient request if the prescription is for a schedule II opioid drug.,... Start Date: 05/04/20 Stop Date: 10/31/20 Status: Ordered Provera 10 mg oral tablet 20 mg, 2, tablet, By Mouth, 3 times a day, # 84 tablet, Refills 0, Tot. Refills 0, Maintenance, 12/18/20 2:30:00 EDT, Route to Pharmacy Electronically, [facility]/pharmacy #[id number], Partial fill upon patient request if the prescription is for a schedule II opio... Start Date: 12/18/20 Stop Date: 01/01/21 Status: Ordered Provera 10 mg oral tablet 10 mg, 1, tablet, By Mouth, 2 times a day, # 20 tablet, Refills 0, Tot. Refills 0, Maintenance, 12/02/20 15:53:00 EDT, Route to Pharmacy Electronically, [facility]/pharmacy #[id number], Partial fill upon patient request if the prescription is for a schedule II opi... Start Date: 12/02/20 Stop Date: 12/12/20 Status: Ordered Symbicort 80mcg/4.5mcg Inhaler 2, puffs, Inhalation, 2 times a day, # 30 each, Refills 0, Tot. Refills 0, Maintenance, 05/04/20 10:25:00 EST, Aerosol, Route to Pharmacy Electronically, [id number], [facility], 175, cm, 05/04/20 8:13:00 Sedrick SALEH. Start Date: 05/04/20 Stop Date: 06/03/20 Status: Ordered Problem List Condition Effective Dates Status Health Status Inform ant Asthma(Confirmed) Active Constipation(Confirmed) Active Iron deficiency anemia(Confirmed) Active [facility] Care Management [facility] Radha [phone](Confirmed) Active Sickle cell trait(Confirmed) Active Social History Social History Type Response Smoking Status Never smoker entered on: 04/01/17 Sex
--- OUTSIDE RECORDS SUMMARY | 2023-09-12 18:24 | XMS_ITS | Continuity of Care Document ---
Author Organization [facility] ter Address [address] [place] [address]- Care Team Providers Care Account Development Associate Name Role Phone Manny Bowman NP Primary Care Physicia n Encounter [facility] Date(s): 02/24/19 - 02/24/[address] [address]- [facility] Discharge Disposition: A-D/C Walkout Attending Physician: Not on Staff, Attending MD Admitting Physician: Not on Staff, Admitting MD Referring Physician: Not on Staff, Referring [...] derek 2.5 mg, Inhalation, Once, lot # [id number] exp:04/2018 manuf: Nephron, Refills 0, Maintenance, 189:12:22 [...] 10 Gm, 0 Refills, Maintenance, 05/10/17 12:07:44, Sulphur, 2 sprays Nares, Both Daily,PRN:for allergy symptoms [...] Compound Start Date: 07/07/17 Status: Ordered triamcinolone 0.025% topical cream 1 application, Topically, 2 times a day, for 14 days, apply a thin film to affected area, # 15 Gm, 1 Refills, Acute 03/07/19 10:07:29 EST, 02/07/19 10:07:29 EST, Cream, 1 application Topically 2 times a day,x14 days,Instr:apply a thin film to affected... Start Date: 02/07/19 Stop Date: 03/07/19 Status: Ordered Tylenol 325 mg oral capsule 3 capsules, By Mouth, Once, Lot #[id number] Exp. 03/2018, 0 Refills, Maintenance, 04/01/17 11:00:00 [...] Active Iron deficiency anemia(Confirmed) Active Care Management [facility] , Trevon Bass CC [phone](Confirmed) Active Sickle cell trait(Confirmed) Active Vital Signs Most recent to oldest [Reference Range]: 1 2 Height 175 cm (02/24/19 3:58 AM) 175 cm (02/24/19 3:36 AM) Oxygen Saturation [94-100 %] 100 % (02/24/19 3:34 AM) Pulse Rate [55-90 bpm] 83 bpm (02/24/19 3:34 AM) Blood Pressure [90-138/55-84 mm Hg] 153/ 100mm Hg *H* (02/24/19 3:58 AM) Respiratory Rate [16-30 br/min] 16 br/mi n (02/24/19 3:58 AM) Temperature [96.8-100.4 DegF] 98.5 DegF (02/24/19 3:58 AM) Mode of Delivery (Oxygen) Room air (02/24/19 3:34 AM) Blood pressure sites Arm, left (02/24/19 3:58 AM) Temperature Route Oral (02/24/19 3:58 AM) Social History Social History Type Response Smoking Status Never smoker entered on: 04/01/17 Sex
--- OUTSIDE RECORDS SUMMARY | 2023-09-12 18:24 | XMS_ITS | Continuity of Care Document ---
Author Organization [facility] Address [address] [place] [address]- Care Team Providers Care Flight Control Manager Name Role Phone Manny Bowman NP Primary Care Physicia n [place] [facility] - 01/25/21 [facility] [address] [place] [address]- Attending Physician: Nando Reaves Admitting Physician: Nando Reaves Referring Physician: AdmtrNando Allergies, Adverse Reactions, Alerts Substance Reaction Severity [...] 0 Refills, Maintenance, 05/22/20 18:01:00 EDT, Gel, [facility], Partial fill upon patient request if the prescription is for a scheduleII opioid drug., 1 application Topically 2 times a... Start Date: 05/22/20 Stop Date: 05/27/20 Status: Ordered clobetasol 0.05% topical cream See Instructions, Please apply dialy to affected area, # 45 Gm, 1 Refills, Maintenance, 06/25/20 15:41:00 EDT, [facility]/pharmacy #[id number], Partial fill upon patient request if the prescription is for a schedule II opioid drug., Please apply dialy to affected... Start Date: 06/25/20 Status: Ordered ferrous sulfate 325 mg oral tablet 1 tablet = 325 mg, By Mouth, Every other day, # 90 tablet, 0 Refills, Maintenance, 12/18/20 2:31:00EDT, Tablet, [facility]/pharmacy #[id number], Partial fill upon patient request if the [...] 5 Refills, Maintenance, 05/04/20 10:23:00 EST, Aerosol, [facility], Partial fill upon patient request [...] 10:25:00 EST, Aerosol, Route to Pharmacy Electronically, [id number], [facility], 175, cm, 05/04/20 8:13:00 EST, He... Start Date: 05/04/20 Stop Date: 06/03/20 Status: Ordered Problem List Condition Effective Dates Status Health Status Inform ant Asthma(Confirmed) Active Constipation(Confirmed) Active Iron deficiency anemia(Confirmed) Active Sickle cell trait(Confirmed) Active Social History Social History Type Response Smoking Status Never smoker entered on: 04/01/17 Sex
--- OUTSIDE RECORDS SUMMARY | 2023-09-12 18:24 | XMS_ITS | Continuity of Care Document ---
Author Organization [facility] Address [address] [place] [address]- Care Team Providers Care Shirt Trimmer Name Role Phone Manny Bowman NP Primary Care Physicia n Encounter [facility] [place] Date(s): 08/15/20 - 09/14/20 [facility] [address] [place] [address]- Attending Physician: Nando Reaves Admitting Physician: Nando [...] Gm, 1 Refills, Maintenance, 06/25/20 15:41:00 EDT, [facility]/pharmacy #[id number], Partial fill upon patient request if the prescription is for a schedule II opioid drug., Please apply dialy to affected... Start Date: 06/25/20 Status: Ordered metroNIDAZOLE 500 mg oral tablet 1 tablet = 500 mg, By Mouth, Every 12 hours, # 14 tablet, 0 Refills, Maintenance, 06/26/20 15:21:00EDT, Tablet, [facility]/pharmacy #[id number], Partial fill upon patient request if the prescription is for a schedule II opioid drug., 175, cm, 06/25/20 15:06:00 ED... Start Date: 06/26/20 Stop Date: 07/03/20 Status: Ordered predniSONE 20 mg oral tablet 2 tablet = 40 mg, By Mouth, Daily, for 5 days, # 10 tablet, 0 Refills, Acute 09/17/20 19:18:00 EDT,09/12/20 19:18:00 EDT, Tablet, [facility]/pharmacy #[id number], Partial fill upon patient request if the prescription is for a schedule II opioid drug., 175, cm, 07... Start Date: 09/12/20 Stop Date: 09/17/20 Status: Ordered ProAir HFA 90 mcg/inh inhalation aerosol 2 puffs, Inhalation, Every 4 hours, PRN Wheezing/Shortness of Breath, # 1 each, 5 Refills, Maintenance, 05/04/20 10:23:00 EST, Aerosol, [facility], Partial fill upon patient request if the prescription is for a schedule II opioid drug.,... Start Date: 05/04/20 Stop Date: 10/31/20 Status: Ordered Symbicort 80mcg/4.5mcg Inhaler 2, puffs, Inhalation, 2 times a day, # 30 each, Refills 0, Tot. Refills 0, Maintenance, 05/04/20 10:25:00 EST, Aerosol, Route to Pharmacy Electronically, [id number], [facility], 175, cm, 05/04/20 8:13:00 EST, He... Start Date: 05/04/20 Stop Date: 06/03/20 Status: Ordered Tessalon Perles 100 mg oral capsule 1 capsule = 100 mg, By Mouth, 3 times a day, for 5 days, # 15 capsule, 0 Refills, Acute 09/17/20 19:18:00 EDT, 09/12/20 19:18:00 EDT, Capsule, [facility]/pharmacy #[id number], Partial fill upon patient request ifthe prescription is for a schedule II opioid drug.,... Start Date: 09/12/20 Stop Date: 09/17/20 Status: Ordered Problem List Condition Effective Dates Status Health Status Inform ant Asthma(Confirmed) Active Constipation(Confirmed) Active Iron deficiency anemia(Confirmed) Active Care Management [facility] , Hailey Renteria CC [phone](Confirmed) Active Sickle cell trait(Confirmed) Active Social History Social History Type Response Smoking Status Never smoker entered on: 04/01/17 Sex
--- OUTSIDE RECORDS SUMMARY | 2023-09-12 18:24 | XMS_ITS | Continuity of Care Document ---
Author Organization [facility] Address [address] [place] [address]- Care Team Providers Care Interactive Art Director Name Role Phone Colby BRUMFIELD, Manny Valentine Primary Care Physicia n [facility] Date[facility]s): 01/02/22 - 03/04/[address] [address]- Attending Physician: Marian Mccullough MD, I Admitting Physician: Marian Mccullough MD, I Referring Physician: Manny Bowman NP Allergies, Adverse Reactions, Alerts No Known Allergies Immunizations Given and Recorded Vaccine Date Status Refusal Reason SARS-CoV-2 mRNA (nexufna-cgjn-ssjzy) vax 1 12/25/21 Recorded SARS-CoV-2 mRNA (psqqkex-wsxx-kzoak) vax 09/03/21 Recorded SARS-CoV-2 mRNA (imenbmi-gied-dcxmp) vax 08/12/21 Recorded influenza virus vaccine, inactivated [...] # 90 tablet, 0 Refills, [id number], 175, cm, 03/03/21 16:44:00 EST, Height, 84, kg, 03/01/21 15:38:00 EST, Dry Weight Start Date: 06/09/21 Status: Ordered ProAir HFA 90 mcg/inh inhalation aerosol 2 puffs, Inhalation, Every 4 hours, PRN Wheezing/Shortness of Breath, # 1 each, 5 Refills, Maintenance, 05/04/20 10:23:00 EST, Aerosol, [facility], Partial fill upon patient request if the prescription is for a schedule II opioid drug.,... Start Date: 05/04/20 Stop Date: 10/31/20 Status: Ordered Symbicort 80mcg/4.5mcg Inhaler 2, puffs, Inhalation, 2 times a day, # 30 each, Refills 0, Tot. Refills 0, Maintenance, 05/04/20 10:25:00 EST, Aerosol, Route to Pharmacy Electronically, [id number], [facility], 175, cm, 05/04/20 8:13:00 EST, He... Start Date: 05/04/20 Stop Date: 06/03/20 Status: Ordered Problem List Condition Confirmation Course Effective Dates Status Health St [facility] Informant Asthma Confirmed Active Constipation Confirmed Active Genital herpes Confirmed Active Hypertension Confirmed Active Iron deficiency anemia Confirmed Active Obese class I Confirmed Active [facility] Care Management [facility] Radha Medardo [phone] Confirmed Active Sickle cell trait Confirmed Active Social History Social History Type Response Smoking Status Never (less than 100 in lifetime) entered on: 03/01/21 Sex Patient Care team information Care Team Personnel Name: Isabella Phelan RN Position: [facility] AMB Nurse Member Role: Primary Care Nurse Name: Davey Rojas RN Position: [facility] RN Member Role: Primary Care Nurse Name: Manny Bowman NP Position: [facility] PCO Associate Professional Member Role: PCP Address: Address: [address] [place] [address]- Name: Verna Mireles RN Position: [facility] RN Member Role: Primary Care Nurse Care Team Related Persons Name: LJ ROZ Address: home [address] [place] [address] Name: STEPHANIE MONSIVAIS Address: home UNKNOWN
--- OUTSIDE RECORDS SUMMARY | 2023-09-12 18:25 | XMS_ITS | Continuity of Care Document ---
Author Organization [facility] ter Address [address] [place] [address]- Care Team Providers Care Overlock Sewing Machine Operator Name Role Phone Colby BRUMFIELD, Manny Valentine Primary Care Physicia n [facility] Date[facility]s): 03/03/21 - 04/02/[address] [address]- Attending Physician: Not on Staff, Attending MD [...] Gm, 0 Refills, Maintenance, 05/22/20 18:01:00 EDT, [facility], [facility], Partial fill upon patient request if the prescription is for a scheduleII opioid drug., 1 application Topically 2 times a... Start Date: 05/22/20 Stop Date: 05/27/20 Status: Ordered clobetasol 0.05% topical cream See Instructions, Please apply dialy to affected area, # 45 Gm, 1 Refills, Maintenance, 06/25/20 15:41:00 EDT, [facility]/pharmacy #[id number], Partial fill upon patient request if the prescription is for a schedule II opioid drug., Please apply dialy to affected... Start Date: 06/25/20 Status: Ordered ferrous sulfate 325 mg oral tablet 1 tablet = 325 mg, By Mouth, Every other day, # 90 tablet, 0 Refills, Maintenance, 12/18/20 2:31:00EDT, Tablet, [facility]/pharmacy #[id number], Partial fill upon patient request if the prescription is for a schedule II opioid drug., 175, cm, 12/18/20 0:43:00 EDT... Start Date: 12/18/20 Status: Ordered metroNIDAZOLE 500 mg oral tablet 1 tablet = 500 mg, By Mouth, Every 12 hours, # 14 tablet, 0 Refills, Maintenance, 06/26/20 15:21:00EDT, Tablet, [facility]/pharmacy #[id number], Partial fill upon patient request if the prescription is for a schedule II opioid drug., 175, cm, 06/25/20 15:06:00 ED... Start Date: 06/26/20 Stop Date: 07/03/20 Status: Ordered ProAir HFA 90 mcg/inh inhalation aerosol 2 puffs, Inhalation, Every 4 hours, PRN Wheezing/Shortness of Breath, # 1 each, 5 Refills, Maintenance, 05/04/20 10:23:00 EST, Aerosol, [facility], Partial fill upon patient request if the prescription is for a schedule II opioid drug.,... Start Date: 05/04/20 Stop Date: 10/31/20 Status: Ordered Provera 10 mg oral tablet 20 mg, 2, tablet, By Mouth, 3 times a day, # 84 tablet, Refills 0, Tot. Refills 0, Maintenance, 12/18/20 2:30:00 EDT, Route to Pharmacy Electronically, [facility]/pharmacy #[id number], Partial fill upon patient request if the prescription is for a schedule II opio... Start Date: 12/18/20 Stop Date: 01/01/21 Status: Ordered Provera 10 mg oral tablet 10 mg, 1, tablet, By Mouth, 2 times a day, # 20 tablet, Refills 0, Tot. Refills 0, Maintenance, 12/02/20 15:53:00 EDT, Route to Pharmacy Electronically, [facility]/pharmacy #[id number], Partial fill upon patient request if the prescription is for a schedule II opi... Start Date: 12/02/20 Stop Date: 12/12/20 Status: Ordered Symbicort 80mcg/4.5mcg Inhaler 2, puffs, Inhalation, 2 times a day, # 30 each, Refills 0, Tot. Refills 0, Maintenance, 05/04/20 10:25:00 EST, Aerosol, Route to Pharmacy Electronically, [id number], [facility], 175, cm, 05/04/20 8:13:00 [...] Active Constipation(Confirmed) Active Iron deficiency anemia(Confirmed) Active [facility] Care Management [facility] Radha [phone](Confirmed) Active Sickle cell trait(Confirmed) Active Social History Social History Type Response Smoking Status Never (less than 100 in lifetime) entered on: 03/01/21 Sex
--- OUTSIDE RECORDS SUMMARY | 2023-09-12 18:25 | XMS_ITS | Continuity of Care Document ---
Author Organization [facility] Address [address] [place] [address]- Care Team Providers Care Residential Manager Name Role Phone Colby BRUMFIELD, Manny Valentine Primary Care Physicia n Encounter [facility] Date(s): 06/04/22 - 07/04/[address] [address]- Allergies, Adverse Reactions, Alerts No Known Allergies Immunizations Given and Recorded Vaccine Date Status Refusal Reason SARS-CoV-2 mRNA (emscslj-mmhg-quita) vax 1 12/25/21 Recorded SARS-CoV-2 mRNA (twgbxqp-znwe-jkrww) vax 09/03/21 Recorded SARS-CoV-2 mRNA (wrnamyj-qbei-dpfhl) vax 08/12/21 Recorded influenza virus vaccine, inactivated [...] # 90 tablet, 0 Refills, [id number], 175, cm, 03/03/21 16:44:00 EST, Height, 84, kg, 03/01/21 15:38:00 EST, Dry Weight Start Date: 06/09/21 Status: Ordered ProAir HFA 90 mcg/inh inhalation aerosol 2 puffs, Inhalation, Every 4 hours, PRN Wheezing/Shortness of Breath, # 1 each, 5 Refills, Maintenance, 05/04/20 10:23:00 EST, Aerosol, [facility], Partial fill upon patient request if the prescription is for a schedule II opioid drug.,... Start Date: 05/04/20 Stop Date: 10/31/20 Status: Ordered Symbicort 80mcg/4.5mcg Inhaler 2, puffs, Inhalation, 2 times a day, # 30 each, Refills 0, Tot. Refills 0, Maintenance, 05/04/20 10:25:00 EST, Aerosol, Route to Pharmacy Electronically, [id number], [facility], 175, cm, 05/04/20 8:13:00 EST, He... Start Date: 05/04/20 Stop Date: 06/03/20 Status: Ordered Problem List Condition Confirmation Course Effective Dates Status Health St [facility] Informant Asthma Confirmed Active Constipation Confirmed Active Genital herpes Confirmed Active Hypertension Confirmed Active Iron deficiency anemia Confirmed Active Obese class I Confirmed Active [facility] Care Management [facility] Radha Medardo [phone] Confirmed Active Sickle cell trait Confirmed Active Social History Social History Type Response Smoking Status Never (less than 100 in lifetime) entered on: 03/01/21 Sex Patient Care team information Care Team Personnel Name: Isabella Phelan RN Position: [facility] Nurse Member Role: Primary Care Nurse Name: Davey Rojas RN Position: [facility] RN Member Role: Primary Care Nurse Name: Manny Bowman NP Position: [facility] PCO Associate Professional Member Role: PCP Address: Address: [address] [place] [address]- Name: Verna Mireles RN Position: [facility] RN Member Role: Primary Care Nurse Care Team Related Persons Name: ROZ CALHOUN Address: home [address] [place] [address] Name: STEPHANIE MONSIVAIS Address: home UNKNOWN
--- OUTSIDE RECORDS SUMMARY | 2023-09-12 18:25 | XMS_ITS | Continuity of Care Document ---
Author Organization [facility] Address [address] [place] [address]- Care Team Providers Care Manager Assembly Name Role Phone Colby BRUMFIELD, Manny Valentine Primary Care Physicia n Encounter [facility] Date(s): 06/26/20 - 08/18/[address] [address]- Attending Physician: Not on Staff, Attending MD Referring Physician: Contractor Kerrie NDIAYE Allergies, Adverse Reactions, Alerts Substance Reaction Severity [...] 0 Refills, Maintenance, 05/22/20 18:01:00 EDT, Gel, [facility], Partial fill upon patient request if the prescription is for a scheduleII opioid drug., 1 application Topically 2 times a... Start Date: 05/22/20 Stop Date: 05/27/20 Status: Ordered clobetasol 0.05% topical cream See Instructions, Please apply dialy to affected area, # 45 Gm, 1 Refills, Maintenance, 06/25/20 15:41:00 EDT, [facility]/pharmacy #[id number], Partial fill upon patient request if the prescription is for a schedule II opioid drug., Please apply dialy to affected... Start Date: 06/25/20 Status: Ordered Flagyl 500 mg oral tablet 1 tablet = 500 mg, By Mouth, Every 12 hours, for 7 days, # 14 tablet, 0 Refills, Acute 08/23/20 13:24:00 EDT, 08/16/20 13:24:00 EDT, [facility], Partial fill upon patient request if theprescription is for a schedule II opioid drug., 175... Start Date: 08/16/20 Stop Date: 08/23/20 Status: Ordered metroNIDAZOLE 500 mg oral tablet 1 tablet = 500 mg, By Mouth, Every 12 hours, # 14 tablet, 0 Refills, Maintenance, 06/26/20 15:21:00EDT, Tablet, [facility]/pharmacy #[id number], Partial fill upon patient request if the prescription is for a schedule II opioid drug., 175, cm, 06/25/20 15:06:00 ED... Start Date: 06/26/20 Stop Date: 07/03/20 Status: Ordered metronidazole topical 0.75% gel with applicator 1 applicator, Vaginally, Daily at bedtime, for 5 days, # 70 Gm, 0 Refills, Acute 08/21/20 14:32:00 EDT, 08/16/20 14:32:00 EDT, Gel, [facility], Partial fill upon patient request if the prescription is for a schedule II opioid drug., 1 ap... Start Date: 08/16/20 Stop Date: 08/21/20 Status: Ordered ProAir HFA 90 mcg/inh inhalation aerosol 2 puffs, Inhalation, Every 4 hours, PRN Wheezing/Shortness of Breath, # 1 each, 5 Refills, Maintenance, 05/04/20 10:23:00 EST, Aerosol, [facility], Partial fill upon patient request if the prescription is for a schedule II opioid drug.,... Start Date: 05/04/20 Stop Date: 10/31/20 Status: Ordered Symbicort 80mcg/4.5mcg Inhaler 2, puffs, Inhalation, 2 times a day, # 30 each, Refills 0, Tot. Refills 0, Maintenance, 05/04/20 10:25:00 EST, Aerosol, Route to Pharmacy Electronically, [id number], [facility], 175, cm, 05/04/20 8:13:00 EST, He... Start Date: 05/04/20 Stop Date: 06/03/20 Status: Ordered Problem List Condition Effective Dates Status Health Status Inform ant Asthma(Confirmed) Active Constipation(Confirmed) Active Iron deficiency anemia(Confirmed) Active Care Management [facility] Hailey CC [phone](Confirmed) Active Sickle cell trait(Confirmed) Active Social History Social History Type Response Smoking Status Never smoker entered on: 04/01/17 Sex
--- OUTSIDE RECORDS SUMMARY | 2023-09-12 18:25 | XMS_ITS | Continuity of Care Document ---
Author Organization [facility] Address [address] [place] [address]- Care Team Providers Care Semi Automatic Sewing Machine Operator Name Role Phone Manny Bowman NP Primary Care Physicia n Encounter [facility] Date(s): 03/13/21 - 04/16/[address] [address]- Attending Physician: Not on Staff, Attending MD Referring Physician: Manny Bowman NP Allergies, [...] 0 Refills, Maintenance, 05/22/20 18:01:00 EDT, Gel, [facility], Partial fill upon patient request if the prescription is for a scheduleII opioid drug., 1 application Topically 2 times a... Start Date: 05/22/20 Stop Date: 05/27/20 Status: Ordered clobetasol 0.05% topical cream See Instructions, Please apply dialy to affected area, # 45 Gm, 1 Refills, Maintenance, 06/25/20 15:41:00 EDT, [facility]/pharmacy #[id number], Partial fill upon patient request if the prescription is for a schedule II opioid drug., Please apply dialy to affected... Start Date: 06/25/20 Status: Ordered ferrous sulfate 325 mg oral tablet 1 tablet = 325 mg, By Mouth, Every other day, # 90 tablet, 0 Refills, Maintenance, 12/18/20 2:31:00EDT, Tablet, [facility]/pharmacy #[id number], Partial fill upon patient request if the prescription is for a schedule II opioid drug., 175, cm, 12/18/20 0:43:00 EDT... Start Date: 12/18/20 Status: Ordered metroNIDAZOLE 500 mg oral tablet 1 tablet = 500 mg, By Mouth, Every 12 hours, # 14 tablet, 0 Refills, Maintenance, 04/12/21 9:59:00 EST, Tablet, [facility]/pharmacy #[id number], Partial fill upon patient request if the prescription is for a schedule II opioid drug., 175, cm, 03/03/21 16:44:00 EST... Start Date: 04/12/21 Stop Date: 04/19/21 Status: Ordered ProAir HFA 90 mcg/inh inhalation aerosol 2 puffs, Inhalation, Every 4 hours, PRN Wheezing/Shortness of Breath, # 1 each, 5 Refills, Maintenance, 05/04/20 10:23:00 EST, Aerosol, [facility], Partial fill upon patient request if the prescription is for a schedule II opioid drug.,... Start Date: 05/04/20 Stop Date: 10/31/20 Status: Ordered Provera 10 mg oral tablet 20 mg, 2, tablet, By Mouth, 3 times a day, # 84 tablet, Refills 0, Tot. Refills 0, Maintenance, 12/18/20 2:30:00 EDT, Route to Pharmacy Electronically, [facility]/pharmacy #[id number], Partial fill upon patient request if the prescription is for a schedule II opio... Start Date: 12/18/20 Stop Date: 01/01/21 Status: Ordered Provera 10 mg oral tablet 10 mg, 1, tablet, By Mouth, 2 times a day, # 20 tablet, Refills 0, Tot. Refills 0, Maintenance, 12/02/20 15:53:00 EDT, Route to Pharmacy Electronically, [facility]/pharmacy #[id number], Partial fill upon patient request if the prescription is for a schedule II opi... Start Date: 12/02/20 Stop Date: 12/12/20 Status: Ordered Symbicort 80mcg/4.5mcg Inhaler 2, puffs, Inhalation, 2 times a day, # 30 each, Refills 0, Tot. Refills 0, Maintenance, 05/04/20 10:25:00 EST, Aerosol, Route to Pharmacy Electronically, [id number], [facility], 175, cm, 05/04/20 [...] Active [facility] Care Management [facility] Radha Parrish [phone](Confirmed) Active Sickle cell trait(Confirmed) Active Social History Social History Type Response Smoking Status Never (less than 100 in lifetime) entered on: 03/01/21 Sex
--- OUTSIDE RECORDS SUMMARY | 2023-09-12 18:25 | XMS_ITS | Continuity of Care Document ---
Author Organization [facility] Address [address] [place] [address]- Care Team Providers Care Ux Architect Name Role Phone Colby BRUMFIELD, Manny Valentine Primary Care Physicia n [facility] Date(s): 07/29/20 - 08/28/[address] [address]- Allergies, Adverse Reactions, Alerts Substance Reaction Severity [...] 15:41:00 EDT, [facility]/pharmacy #[id number], Partial fill upon patient request if the prescription is for a schedule II opioid drug., Please apply dialy to affected... Start Date: 06/25/20 Status: Ordered metroNIDAZOLE 500 mg oral tablet 1 tablet = 500 mg, By Mouth, Every 12 hours, # 14 tablet, 0 Refills, Maintenance, 06/26/20 15:21:00EDT, Tablet, [facility]/pharmacy #[id number], Partial fill upon patient request if the prescription is for a schedule II opioid drug., 175, cm, 06/25/20 15:06:00 ED... Start Date: 06/26/20 Stop Date: 07/03/20 Status: Ordered ProAir HFA 90 mcg/inh inhalation aerosol 2 puffs, Inhalation, Every 4 hours, PRN Wheezing/Shortness of Breath, # 1 each, 5 Refills, Maintenance, 05/04/20 10:23:00 EST, Aerosol, [facility], Partial fill upon patient request if the prescription is for a schedule II opioid drug.,... Start Date: 05/04/20 Stop Date: 10/31/20 Status: Ordered Symbicort 80mcg/4.5mcg Inhaler 2, puffs, Inhalation, 2 times a day, # 30 each, Refills 0, Tot. Refills 0, Maintenance, 05/04/20 10:25:00 EST, Aerosol, Route to Pharmacy Electronically, [id number], [facility], 175, cm, 05/04/20 8:13:00 EST, He... Start Date: 05/04/20 Stop Date: 06/03/20 Status: Ordered Problem List Condition Effective Dates Status Health Status Inform ant Asthma(Confirmed) Active Constipation(Confirmed) Active Iron deficiency anemia(Confirmed) Active Care Management [facility] , Hailey Renteria CC [phone](Confirmed) Active Sickle cell trait(Confirmed) Active Social History Social History Type Response Smoking Status Never smoker entered on: 04/01/17 Sex
--- OUTSIDE RECORDS SUMMARY | 2023-09-12 18:25 | XMS_ITS | Continuity of Care Document ---
Author Organization [facility] Address [address] [place] [address]- Care Team Providers Care Studio Operator Name Role Phone Colby BRUMFIELD, Manny Valentine Primary Care Physicia n Encounter [id number] Date(s): 04/04/21 - 05/04/[address] [address]- Encounter Diagnosis Psychosis 298.9(Discharge Diagnosis) - 04/13/13 [...] 0 Refills, Maintenance, 05/22/20 18:01:00 EDT, Gel, [facility], Partial fill upon patient request [...] tablet, 0 Refills, Maintenance, 12/18/20 2:31:00EDT, Tablet, [id number], Partial fill upon patient request if the prescription is for a schedule II opioid drug., 175, cm, 12/18/20 0:43:00 EDT... Start Date: 12/18/20 Status: Ordered metroNIDAZOLE 500 mg oral tablet 1 tablet = 500 mg, By Mouth, Every 12 hours, # 14 tablet, 0 Refills, Maintenance, 04/12/21 9:59:00 EST, Tablet, [facility]/pharmacy #[id number], Partial fill upon patient request if the prescription is for a schedule II opioid drug., 175, cm, 03/03/21 16:44:00 EST... Start Date: 04/12/21 Stop Date: 04/19/21 Status: Ordered ProAir HFA 90 mcg/inh inhalation aerosol 2 puffs, Inhalation, Every 4 hours, PRN Wheezing/Shortness of Breath, # 1 each, 5 Refills, Maintenance, 05/04/20 10:23:00 EST, Aerosol, [facility], Partial fill upon patient request if the prescription is for a schedule II opioid drug.,... Start Date: 05/04/20 Stop Date: 10/31/20 Status: Ordered Provera 10 mg oral tablet 20 mg, 2, tablet, By Mouth, 3 times a day, # 84 tablet, Refills 0, Tot. Refills 0, Maintenance, 12/18/20 2:30:00 EDT, Route to Pharmacy Electronically, [facility]/pharmacy #[id number], Partial fill upon patient request if the prescription is for a schedule II opio... Start Date: 12/18/20 Stop Date: 01/01/21 Status: Ordered Provera 10 mg oral tablet 10 mg, 1, tablet, By Mouth, 2 times a day, # 20 tablet, Refills 0, Tot. Refills 0, Maintenance, 12/02/20 15:53:00 EDT, Route to Pharmacy Electronically, [facility]/pharmacy #[id number], Partial fill upon patient request if the prescription is for a schedule II opi... Start Date: 12/02/20 Stop Date: 12/12/20 Status: Ordered Symbicort 80mcg/4.5mcg Inhaler 2, puffs, Inhalation, 2 times a day, # 30 each, Refills 0, Tot. Refills 0, Maintenance, 05/04/20 10:25:00 EST, Aerosol, Route to Pharmacy Electronically, [id number], [facility], 175, cm, 05/04/20 8:13:00 EST, [...] Active Constipation(Confirmed) Active Iron deficiency anemia(Confirmed) Active [facility] Care Management [facility] , Radha Batres [phone](Confirmed) Active Sickle cell trait(Confirmed) Active Vital Signs Most recent to oldest [Reference Range]: 1 Height 169.00 cm (02/16/08 11:36 AM) Social History Social History Type Response Smoking Status Never (less than 100 in lifetime) entered on: 03/01/21 Sex
--- OUTSIDE RECORDS SUMMARY | 2023-09-12 18:25 | XMS_ITS | Continuity of Care Document ---
Author Organization [facility] Address [address] [place] [address]- Care Team Providers Care Wool Shearing Supervisor Name Role Phone Colby BRUMFIELD, Manny Valentine Primary Care Physicia n [facility] Date[facility]): 11/29/20 - 12/29/[address] [address]- Allergies, Adverse Reactions, Alerts Substance Reaction Severity [...] Refills, Maintenance, 05/22/20 18:01:00 EDT, Gel, [facility], Partial fill upon patient request if the prescription is for a scheduleII opioid drug., 1 application Topically 2 times a... Start Date: 05/22/20 Stop Date: 05/27/20 Status: Ordered clobetasol 0.05% topical cream See Instructions, Please apply dialy to affected area, # 45 Gm, 1 Refills, Maintenance, 06/25/20 15:41:00 EDT, [facility]/pharmacy #[id number], Partial fill upon patient request if the prescription is for a schedule II opioid drug., Please apply dialy to affected... Start Date: 06/25/20 Status: Ordered ferrous sulfate 325 mg oral tablet 1 tablet = 325 mg, By Mouth, Every other day, # 90 tablet, 0 Refills, Maintenance, 12/18/20 2:31:00EDT, Tablet, [facility]/pharmacy #[id number], Partial fill upon patient request if the prescription is for a schedule II opioid drug., 175, cm, 12/18/20 0:43:00 EDT... Start Date: 12/18/20 Status: Ordered metroNIDAZOLE 500 mg oral tablet 1 tablet = 500 mg, By Mouth, Every 12 hours, # 14 tablet, 0 Refills, Maintenance, 06/26/20 15:21:00EDT, Tablet, [facility]/pharmacy #[id number], Partial fill upon patient request if the prescription is for a schedule II opioid drug., 175, cm, 06/25/20 15:06:00 ED... Start Date: 06/26/20 Stop Date: 07/03/20 Status: Ordered ProAir HFA 90 mcg/inh inhalation aerosol 2 puffs, Inhalation, Every 4 hours, PRN Wheezing/Shortness of Breath, # 1 each, 5 Refills, Maintenance, 05/04/20 10:23:00 EST, Aerosol, [facility], Partial fill upon patient request if the prescription is for a schedule II opioid drug.,... Start Date: 05/04/20 Stop Date: 10/31/20 Status: Ordered Provera 10 mg oral tablet 20 mg, 2, tablet, By Mouth, 3 times a day, # 84 tablet, Refills 0, Tot. Refills 0, Maintenance, 12/18/20 2:30:00 EDT, Route to Pharmacy Electronically, [facility]/pharmacy #[id number], Partial fill upon patient request if the prescription is for a schedule II opio... Start Date: 12/18/20 Stop Date: 01/01/21 Status: Ordered Provera 10 mg oral tablet 10 mg, 1, tablet, By Mouth, 2 times a day, # 20 tablet, Refills 0, Tot. Refills 0, Maintenance, 12/02/20 15:53:00 EDT, Route to Pharmacy Electronically, [facility]/pharmacy #[id number], Partial fill upon patient request if the prescription is for a schedule II opi... Start Date: 12/02/20 Stop Date: 12/12/20 Status: Ordered Symbicort 80mcg/4.5mcg Inhaler 2, puffs, Inhalation, 2 times a day, # 30 each, Refills 0, Tot. Refills 0, Maintenance, 05/04/20 10:25:00 EST, Aerosol, Route to Pharmacy Electronically, [id number], [facility], 175, cm, 05/04/20 8:13:00 [place] Start Date: 05/04/20 Stop Date: 06/03/20 Status: Ordered Problem List Condition Effective Dates Status Health Status Inform ant Asthma(Confirmed) Active Constipation(Confirmed) Active Iron deficiency anemia(Confirmed) Active Sickle cell trait(Confirmed) Active Social History Social History Type Response Smoking Status Never smoker entered on: 04/01/17 Sex
--- OUTSIDE RECORDS SUMMARY | 2023-09-12 18:25 | XMS_ITS | Continuity of Care Document ---
Author Organization [facility] Address [address] [place] [address]- Care Team Providers Care Binman Name Role Phone Manny Bowman NP Primary Care Physicia n [facility] Date[facility]s): 10/23/20 - 11/22/[address] [address]- Allergies, Adverse Reactions, Alerts Substance Reaction Severity [...] 0 Refills, Maintenance, 05/22/20 18:01:00 EDT, Gel, [facility], Partial fill upon patient request if the prescription is for a scheduleII opioid drug., 1 application Topically 2 times a... Start Date: 05/22/20 Stop Date: 05/27/20 Status: Ordered clobetasol 0.05% topical cream See Instructions, Please apply dialy to affected area, # 45 Gm, 1 Refills, Maintenance, 06/25/20 15:41:00 EDT, [facility]/pharmacy #[id number], Partial fill upon patient request if the prescription is for a schedule II opioid drug., Please apply dialy to affected... Start Date: 06/25/20 Status: Ordered metroNIDAZOLE 500 mg oral tablet 1 tablet = 500 mg, By Mouth, Every 12 hours, # 14 tablet, 0 Refills, Maintenance, 06/26/20 15:21:00EDT, Tablet, [facility]/pharmacy #[id number], Partial fill upon patient request if the prescription is for a schedule II opioid drug., 175, cm, 06/25/20 15:06:00 ED... Start Date: 06/26/20 Stop Date: 07/03/20 Status: Ordered ProAir HFA 90 mcg/inh inhalation aerosol 2 puffs, Inhalation, Every 4 hours, PRN Wheezing/Shortness of Breath, # 1 each, 5 Refills, Maintenance, 05/04/20 10:23:00 EST, Aerosol, [facility], Partial fill upon patient request if the prescription is for a schedule II opioid drug.,... Start Date: 05/04/20 Stop Date: 10/31/20 Status: Ordered Symbicort 80mcg/4.5mcg Inhaler 2, puffs, Inhalation, 2 times a day, # 30 each, Refills 0, Tot. Refills 0, Maintenance, 05/04/20 10:25:00 EST, Aerosol, Route to Pharmacy Electronically, [id number], [facility], 175, cm, 05/04/20 8:13:00 EST, He... Start Date: 05/04/20 Stop Date: 06/03/20 Status: Ordered Problem List Condition Effective Dates Status Health Status Inform ant Asthma(Confirmed) Active Constipation(Confirmed) Active Iron deficiency anemia(Confirmed) Active Care Management [facility] Hailey CC [phone](Confirmed) Active Sickle cell trait(Confirmed) Active Social History Social History Type Response Smoking Status Never smoker entered on: 04/01/17 Sex
--- OUTSIDE RECORDS SUMMARY | 2023-09-12 18:25 | XMS_ITS | Continuity of Care Document ---
Author Organization [facility] Address [address] [place] [address]- Care Team Providers Care Turbine Subassembler Name Role Phone Colby BRUMFIELD, Manny Valentine Primary Care Physicia n Encounter [facility] AC[facility] R [id number] Date(s): 05/23/19 - 06/02/[address] [address]- [facility] Encounter Diagnosis Psychosis 298.9(Discharge Diagnosis) [...] 10/08/19 11:19:00 EDT, 04/11/19 11:19:00 EST, Powder, [facility]/pharmacy #[id number], 175, cm, 04/11/19 10:26:00 EST, Height [...] 0 Refills, Maintenance, 04/21/19 10:46:00 EST, Tablet, [facility]/pharmacy #[id number], 175, cm, 04/11/19 10:26:00 EST, [...] Refills, Soft Stop, 04/14/19 9:39:00 EST, Cream, [facility]/pharmacy #[id number], 1 application Topically Once,Instr:to skin [...] 06/30/19 17:38:00 EDT, 06/02/19 17:38:00 EDT, Cream, [facility]/pharmacy #[id number], 1 application Topically 2 times a [...] [facility] , Hailey Renteria CC [phone](Confirmed) Active Sickle cell trait(Confirmed) Active Vital Signs Most recent to oldest [Reference Range]: 1 Height 169.00 cm (02/16/08 11:36 AM) Social History Social History Type Response Smoking Status Never smoker entered on: 04/01/17 Sex
--- OUTSIDE RECORDS SUMMARY | 2023-09-12 18:25 | XMS_ITS | Continuity of Care Document ---
Author Organization [facility] Address [address] [place] [address]- Care Team Providers Care Online Trader Name Role Phone Manny Bowman NP Primary Care Physicia n [facility] Date[facility]s): 02/06/19 - 03/10/[address] [address]- [facility] Attending Physician: Not on Staff, Attending MD Admitting Physician: Anu Orellana MD Allergies, Adverse Reactions, Alerts Substance Reaction [...] derek 2.5 mg, Inhalation, Once, lot # [id number] exp:04/2018 manuf: Nephron, Refills 0, Maintenance, 189:12:22 [...] 10 Gm, 0 Refills, Maintenance, 05/10/17 12:07:44, [place], 2 sprays Nares, Both Daily,PRN:for allergy symptoms [...] EDT, Compound Start Date: 07/07/17 Status: Ordered Tylenol 325 mg oral capsule 3 capsules, By Mouth, Once, Lot #[id number] Exp. 03/2018, 0 Refills, Maintenance, 04/01/17 11:00:00 [...] Srikanth [facility] Trevon CC [phone](Confirmed) Active Sickle cell trait(Confirmed) Active Social History Social History Type Response Smoking Status Never smoker entered on: 04/01/17 Sex
--- OUTSIDE RECORDS SUMMARY | 2023-09-12 18:25 | XMS_ITS | Continuity of Care Document ---
Author Organization [facility] Address [address] [place] [address]- Care Team Providers Care Federal Appellate Clerk Name Role Phone Colby BRUMFIELD, Manny Valentine Primary Care Physicia n [facility] Date(s): 03/13/21 - 04/12/[address] [address]- Allergies, Adverse Reactions, Alerts No Known Allergies [...] Refills, Maintenance, 05/22/20 18:01:00 EDT, Gel, [facility], Partial fill upon patient request if the prescription is for a scheduleII opioid drug., 1 application Topically 2 times a... Start Date: 05/22/20 Stop Date: 05/27/20 Status: Ordered clobetasol 0.05% topical cream See Instructions, Please apply dialy to affected area, # 45 Gm, 1 Refills, Maintenance, 06/25/20 15:41:00 EDT, [facility]/pharmacy #[id number], Partial fill upon patient request if the prescription is for a schedule II opioid drug., Please apply dialy to affected... Start Date: 06/25/20 Status: Ordered ferrous sulfate 325 mg oral tablet 1 tablet = 325 mg, By Mouth, Every other day, # 90 tablet, 0 Refills, Maintenance, 12/18/20 2:31:00EDT, Tablet, [facility]/pharmacy #[id number], Partial fill upon patient request if the prescription is for a schedule II opioid drug., 175, cm, 10/13/21 0:43:00 EDT... Start Date: 12/18/20 Status: Ordered metroNIDAZOLE 500 mg oral tablet 1 tablet = 500 mg, By Mouth, Every 12 hours, # 14 tablet, 0 Refills, Maintenance, 04/12/21 9:59:00 EST, Tablet, [facility]/pharmacy #[id number], Partial fill upon patient request if the prescription is for a schedule II opioid drug., 175, cm, 03/03/21 16:44:00 EST... Start Date: 04/12/21 Stop Date: 04/19/21 Status: Ordered ProAir HFA 90 mcg/inh inhalation aerosol 2 puffs, Inhalation, Every 4 hours, PRN Wheezing/Shortness of Breath, # 1 each, 5 Refills, Maintenance, 05/04/20 10:23:00 EST, Aerosol, [facility], Partial fill upon patient request if the prescription is for a schedule II opioid drug.,... Start Date: 05/04/20 Stop Date: 10/31/20 Status: Ordered Provera 10 mg oral tablet 20 mg, 2, tablet, By Mouth, 3 times a day, # 84 tablet, Refills 0, Tot. Refills 0, Maintenance, 12/18/20 2:30:00 EDT, Route to Pharmacy Electronically, [facility]/pharmacy #[id number], Partial fill upon patient [...] 10:25:00 EST, Aerosol, Route to Pharmacy Electronically, [id number], [facility], 175, cm, 05/04/20 8:13:00 EST [...] Iron deficiency anemia(Confirmed) Active [facility] Care Management [facility] Radha Parrish [phone](Confirmed) Active Sickle cell trait(Confirmed) Active Social History Social History Type Response Smoking Status Never (less than 100 in lifetime) entered on: 03/01/21 Sex
--- OUTSIDE RECORDS SUMMARY | 2023-09-12 18:25 | XMS_ITS | Continuity of Care Document ---
Author Organization [facility] Address [address] [place] [address]- Care Team Providers Care Technician Anatomic Pathology Name Role Phone Colby BRUMFIELD, Manny Valentine Primary Care Physicia n En[place] [facility] Date(s): 01/07/22 - 02/06/22 [facility] [address] [place] [address]- Attending Physician: Nando Reaves Admitting Physician: Nando Reaves Referring Physician: Nando Reaves Allergies, Adverse Reactions, Alerts No Known Allergies Immunizations Given and Recorded Vaccine Date Status Refusal Reason SARS-CoV-2 mRNA (nybsvof-cjjm-unfsa) vax 1 12/25/21 Recorded SARS-CoV-2 mRNA (etutfzo-hpgu-otcfl) vax 09/03/21 Recorded SARS-CoV-2 mRNA (qmfbdie-tdxw-gtqjj) vax 08/12/21 Recorded influenza virus vaccine, inactivated [...] # 90 tablet, 0 Refills, [id number], 175, cm, 03/03/21 16:44:00 EST, Height, 84, [...] 10:25:00 EST, Aerosol, Route to Pharmacy Electronically, [id number], [facility], 175, cm, 05/04/20 8:13:00 EST, He... Start Date: 05/04/20 Stop Date: 06/03/20 Status: Ordered Problem List Condition Confirmation Course Effective Dates Status Health St [facility] Informant Asthma Confirmed Active Constipation Confirmed Active Genital herpes Confirmed Active Hypertension Confirmed Active Iron deficiency anemia Confirmed Active Obese class I Confirmed Active [facility] Care Management [facility] Radha Medardo [phone] Confirmed Active Sickle cell trait Confirmed Active Social History Social History Type Response Smoking Status Never (less than 100 in lifetime) entered on: 03/01/21 Sex Patient Care team information Care Team Personnel Name: Isabella Phelan RN Position: [facility] AMB Nurse Member Role: Primary Care Nurse Name: Davey Rojas RN Position: [facility] RN Member Role: Primary Care Nurse Name: Manny Bowman NP Position: [facility] PCO Associate Professional Member Role: PCP Address: Address: [address] [place] [id number]- Name: Verna Mireles RN Position: [facility] RN Member Role: Primary Care Nurse Care Team Related Persons Name: ROZ CALHOUN Address: home [address] [place] [address] Name: STEPHANIE MONSIVAIS Address: home UNKNOWN
--- OUTSIDE RECORDS SUMMARY | 2023-09-12 18:25 | XMS_ITS | Continuity of Care Document ---
Author Organization [facility] Address [address] [place] [address]- Care Team Providers Care Waitstaff Captain Name Role Phone Colby BRUMFIELD, Manny Valentine Primary Care Physicia n [facility] Date[facility]s): 12/17/20 - 12/17/[address] [address]- Discharge Disposition: A-D/C Walkout Attending Physician: Not [...] 0 Refills, Maintenance, 05/22/20 18:01:00 EDT, Gel, [facility], Partial fill upon patient request if the prescription is for a scheduleII opioid drug., 1 application Topically 2 times a... Start Date: 05/22/20 Stop Date: 05/27/20 Status: Ordered clobetasol 0.05% topical cream See Instructions, Please apply dialy to affected area, # 45 Gm, 1 Refills, Maintenance, 06/25/20 15:41:00 EDT, [facility]/pharmacy #[id number], Partial fill upon patient request if the prescription is for a schedule II opioid drug., Please apply dialy to affected... Start Date: 06/25/20 Status: Ordered metroNIDAZOLE 500 mg oral tablet 1 tablet = 500 mg, By Mouth, Every 12 hours, # 14 tablet, 0 Refills, Maintenance, 06/26/20 15:21:00EDT, Tablet, [facility]/pharmacy #[id number], Partial fill upon patient request if the prescription is for a schedule II opioid drug., 175, cm, 06/25/20 15:06:00 ED... Start Date: 06/26/20 Stop Date: 07/03/20 Status: Ordered ProAir HFA 90 mcg/inh inhalation aerosol 2 puffs, Inhalation, Every 4 hours, PRN Wheezing/Shortness of Breath, # 1 each, 5 Refills, Maintenance, 05/04/20 10:23:00 EST, Aerosol, [facility], Partial fill upon patient request if the prescription is for a schedule II opioid drug.,... Start Date: 05/04/20 Stop Date: 10/31/20 Status: Ordered Provera 10 mg oral tablet 10 mg, 1, tablet, By Mouth, 2 times a day, # 20 tablet, Refills 0, Tot. Refills 0, Maintenance, 12/02/20 15:53:00 EDT, Route to Pharmacy Electronically, [facility]/pharmacy #[id number], Partial fill upon patient request if the prescription is for a schedule II opi... Start Date: 12/02/20 Stop Date: 12/12/20 Status: Ordered Symbicort 80mcg/4.5mcg Inhaler 2, puffs, Inhalation, 2 times a day, # 30 each, Refills 0, Tot. Refills 0, Maintenance, 05/04/20 10:25:00 EST, Aerosol, Route to Pharmacy Electronically, [id number], [facility], 175, cm, 05/04/20 8:13:00 EST, He... Start Date: 05/04/20 Stop Date: 06/03/20 Status: Ordered Problem List Condition Effective Dates Status Health Status Inform ant Asthma(Confirmed) Active Constipation(Confirmed) Active Iron deficiency anemia(Confirmed) Active Sickle cell trait(Confirmed) Active Vital Signs Most recent to oldest [Reference Range]: 1 2 Oxygen Saturation [94-100 %] 100 % (12/17/20 9:30 PM) 100 % (12/17/20 9:12 PM) Pulse Rate [55-90 bpm] 78 bpm (12/17/20 9:30 PM) 77 bpm (12/17/20 9:12 PM) Blood Pressure [90-138/55-84 mm Hg] 164/ 108mm Hg *H* (12/17/20 9:30 PM) Respiratory Rate [16-30 br/min] 18 br/mi n (12/17/20 9:30 PM) 18 br/min (12/17/20 9:12 PM) Temperature [96.8-100.4 DegF] 99.2 DegF (12/17/20 9:30 PM) Mode of Delivery (Oxygen) Room air (12/17/20 9:30 PM) Room air (12/17/20 9:12 PM) Blood pressure sites Arm, right (12/17/20 9:30 PM) Temperature Route Oral (12/17/20 9:30 PM) Social History Social History Type Response Smoking Status Never smoker entered on: 04/01/17 Sex
--- OUTSIDE RECORDS SUMMARY | 2023-09-12 18:25 | XMS_ITS | Continuity of Care Document ---
Author Organization [facility] Address [address] [place] [address]- Care Team Providers Care Inventory Audit Clerk Name Role Phone Colby BRUMFIELD, Manny Valentine Primary Care Physicia n [facility] Date[facility]s): 06/24/20 - 07/24/[address] [address]- Allergies, Adverse Reactions, Alerts Substance Reaction Severity [...] Refills, Maintenance, 05/22/20 18:01:00 EDT, Gel, [facility], Partial fill upon patient request if the prescription is for a scheduleII opioid drug., 1 application Topically 2 times a... Start Date: 05/22/20 Stop Date: 05/27/20 Status: Ordered clobetasol 0.05% topical cream See Instructions, Please apply dialy to affected area, # 45 Gm, 1 Refills, Maintenance, 06/25/20 15:41:00 EDT, [facility]/pharmacy #[id number], Partial fill upon patient request if the prescription is for a schedule II opioid drug., Please apply dialy to affected... Start Date: 06/25/20 Status: Ordered metroNIDAZOLE 500 mg oral tablet 1 tablet = 500 mg, By Mouth, Every 12 hours, # 14 tablet, 0 Refills, Maintenance, 06/26/20 15:21:00EDT, Tablet, [facility]/pharmacy #[id number], Partial fill upon patient request if the prescription is for a schedule II opioid drug., 175, cm, 06/25/20 15:06:00 ED... Start Date: 06/26/20 Stop Date: 07/03/20 Status: Ordered ProAir HFA 90 mcg/inh inhalation aerosol 2 puffs, Inhalation, Every 4 hours, PRN Wheezing/Shortness of Breath, # 1 each, 5 Refills, Maintenance, 05/04/20 10:23:00 EST, Aerosol, [facility], Partial fill upon patient request if the prescription is for a schedule II opioid drug.,... Start Date: 05/04/20 Stop Date: 10/31/20 Status: Ordered Symbicort 80mcg/4.5mcg Inhaler 2, puffs, Inhalation, 2 times a day, # 30 each, Refills 0, Tot. Refills 0, Maintenance, 05/04/20 10:25:00 EST, Aerosol, Route to Pharmacy Electronically, [id number], [facility], 175, cm, 05/04/20 8:13:00 EST, He... Start Date: 05/04/20 Stop Date: 06/03/20 Status: Ordered Problem List Condition Effective Dates Status Health Status Inform ant Asthma(Confirmed) Active Constipation(Confirmed) Active Iron deficiency anemia(Confirmed) Active Care Management [facility] Hailey CC [phone](Confirmed) Active Sickle cell trait(Confirmed) Active Social History Social History Type Response Smoking Status Never smoker entered on: 04/01/17 Sex
--- OUTSIDE RECORDS SUMMARY | 2023-09-12 18:25 | XMS_ITS | Continuity of Care Document ---
Author Organization [facility] Address [address] [place] [address]- Care Team Providers Care Scoop Operator Name Role Phone Colby BRUMFIELD, Manny Valentine Primary Care Physicia n [facility] Date[facility]s): 11/26/20 - 12/26/[address] [address]- Allergies, Adverse Reactions, Alerts Substance Reaction Severity [...] 0 Refills, Maintenance, 05/22/20 18:01:00 EDT, Gel, [facility], Partial fill upon patient request if the prescription is for a scheduleII opioid drug., 1 application Topically 2 times a... Start Date: 05/22/20 Stop Date: 05/27/20 Status: Ordered clobetasol 0.05% topical cream See Instructions, Please apply dialy to affected area, # 45 Gm, 1 Refills, Maintenance, 06/25/20 15:41:00 EDT, [facility]/pharmacy #[id number], Partial fill upon patient request if the prescription is for a schedule II opioid drug., Please apply dialy to affected... Start Date: 06/25/20 Status: Ordered ferrous sulfate 325 mg oral tablet 1 tablet = 325 mg, By Mouth, Every other day, # 90 tablet, 0 Refills, Maintenance, 12/18/20 2:31:00EDT, Tablet, [facility]/pharmacy #[id number], Partial fill upon patient request if the prescription is for a schedule II opioid drug., 175, cm, 12/18/20 0:43:00 EDT... Start Date: 12/18/20 Status: Ordered metroNIDAZOLE 500 mg oral tablet 1 tablet = 500 mg, By Mouth, Every 12 hours, # 14 tablet, 0 Refills, Maintenance, 06/26/20 15:21:00EDT, Tablet, [facility]/pharmacy #[id number], Partial fill upon patient request if the prescription is for a schedule II opioid drug., 175, cm, 06/25/20 15:06:00 ED... Start Date: 06/26/20 Stop Date: 07/03/20 Status: Ordered ProAir HFA 90 mcg/inh inhalation aerosol 2 puffs, Inhalation, Every 4 hours, PRN Wheezing/Shortness of Breath, # 1 each, 5 Refills, Maintenance, 05/04/20 10:23:00 EST, Aerosol, [facility], Partial fill upon patient request if the prescription is for a schedule II opioid drug.,... Start Date: 05/04/20 Stop Date: 10/31/20 Status: Ordered Provera 10 mg oral tablet 20 mg, 2, tablet, By Mouth, 3 times a day, # 84 tablet, Refills 0, Tot. Refills 0, Maintenance, 12/18/20 2:30:00 EDT, Route to Pharmacy Electronically, [facility]/pharmacy #[id number], Partial fill upon patient request if the prescription is for a schedule II opio... Start Date: 12/18/20 Stop Date: 01/01/21 Status: Ordered Provera 10 mg oral tablet 10 mg, 1, tablet, By Mouth, 2 times a day, # 20 tablet, Refills 0, Tot. Refills 0, Maintenance, 12/02/20 15:53:00 EDT, Route to Pharmacy Electronically, [facility]/pharmacy #[id number], Partial fill upon patient request if the prescription is for a schedule II opi... Start Date: 12/02/20 Stop Date: 12/12/20 Status: Ordered Symbicort 80mcg/4.5mcg Inhaler 2, puffs, Inhalation, 2 times a day, # 30 each, Refills 0, Tot. Refills 0, Maintenance, 05/04/20 10:25:00 EST, Aerosol, Route to Pharmacy Electronically, [id number], [facility], 175, cm, 05/04/20 8:13:00 [place] Start Date: 05/04/20 Stop Date: 06/03/20 Status: Ordered Problem List Condition Effective Dates Status Health Status Inform ant Asthma(Confirmed) Active Constipation(Confirmed) Active Iron deficiency anemia(Confirmed) Active Sickle cell trait(Confirmed) Active Social History Social History Type Response Smoking Status Never smoker entered on: 04/01/17 Sex
--- OUTSIDE RECORDS SUMMARY | 2023-09-12 18:25 | XMS_ITS | Continuity of Care Document ---
Author Organization [facility] Address [address] [place] [address]- Care Team Providers Care Special Needs Teacher Name Role Phone Colby BRUMFIELD, Manny Valentine Primary Care Physicia n [facility]counter [facility] Date(s): 03/21/20 - 04/20/[address] [address]- Allergies, Adverse Reactions, Alerts Substance Reaction Severity [...] Active Iron deficiency anemia(Confirmed) Active Care Management [facility] , Hailey Renteria CC [phone](Confirmed) Active Sickle cell trait(Confirmed) Active Social History Social History Type Response Smoking Status Never smoker entered on: 04/01/17 Sex
--- OUTSIDE RECORDS SUMMARY | 2023-09-12 18:25 | XMS_ITS | Continuity of Care Document ---
Author Organization [facility] ter Address [address] [place] [address]- Care Team Providers Care Acid Treater Name Role Phone Colby BRUMFIELD, Manny Valentine Primary Care Physicia n Encounter [facility] Date(s): 05/03/20 - 05/04/[address] [address]- Discharge Disposition: A-D/C Home Attending Physician: Perfecto Maguire MD Admitting Physician: Gene Moore MD Referring Physician: Not on Staff, Referring [...] given 6Admin Note: VIS 04/09/06 GIVEN Medications Acetaminophen Tablet 650 mg, Tablet, By Mouth, Every 4 hours, PRN for Pain , Mild, Temperature Greater than 100.5, Routine, 05/03/20 2:58:00 EST Start Date: 05/03/20 Stop Date: 05/04/20 Status: Discontinued azithromycin 500 mg oral tablet 1 tablet = 500 mg, By Mouth, Daily, for 3 days, # 3 tablet, 0 Refills, Acute 05/07/20 10:25:00 EST,05/04/20 10:25:00 EST, Tablet, [facility], Partial fill upon patient request if the prescription is for a schedule II opioid drug., 175,... Start Date: 05/04/20 Stop Date: 05/07/20 Status: Ordered cefixime 400 mg oral capsule 1 capsule = 400 mg, By Mouth, Daily, for 3 days, # 3 capsule, 0 Refills, Acute 05/07/20 10:24:00 EST, 05/04/20 10:24:00 EST, Capsule, [facility], Partial fill upon patient request if the prescription is for a schedule II opioid drug., 17... Start Date: 05/04/20 Stop Date: 05/07/20 Status: Ordered predniSONE 20 mg oral tablet 2 tablet = 40 mg, By Mouth, Daily, for 3 days, # 6 tablet, 0 Refills, Acute 05/07/20 10:29:00 EST, 05/04/20 10:29:00 EST, Tablet, [facility], Partial fill upon patient request if the prescription is for a schedule II opioid drug., 175, c... Start Date: 05/04/20 Stop Date: 05/07/20 Status: Ordered ProAir HFA 90 mcg/inh inhalation aerosol 2 puffs, Inhalation, Every 4 hours, PRN Wheezing/Shortness of Breath, # 1 each, 5 Refills, Maintenance, 05/04/20 10:23:00 EST, Aerosol, [facility], Partial fill upon patient request if the prescription is for a schedule II opioid drug.,... Start Date: 05/04/20 Stop Date: 10/31/20 Status: Ordered Symbicort 80mcg/4.5mcg Inhaler 2, puffs, Inhalation, 2 times a day, # 30 each, Refills 0, Tot. Refills 0, Maintenance, 05/04/20 10:25:00 EST, Aerosol, Route to Pharmacy Electronically, [id number], [facility], 175, cm, 05/04/20 8:13:00 EST, He... Start Date: 05/04/20 Stop Date: 06/03/20 Status: Ordered Problem List Condition Effective Dates Status Health Status Inform ant Asthma(Confirmed) Active Constipation(Confirmed) Active Iron deficiency anemia(Confirmed) Active Care Management [facility] Hailey CC [phone](Confirmed) Active Sickle cell trait(Confirmed) Active Results Radiology Reports * Exam Date Time Procedure Performing Provider Status 05/02/20 9:43 PM Chest 2 Views Frontal and Lat Yamile Issa (Verified) Notes: (Chest 2 Views Frontal and Lat) Reason For Exam: Cough RESULT: Chest 2 Views Frontal and Lat Chest 2 Views Frontal and Lat Chest x-ray 02/04/2019 Hx of Present Illness: 5 Days of congestion with cough; Reason: Cough; Clinical Question(s): Pneumonia; Special Instructions: This is a protocol film and radiologist should call any findings to the Charge Nurse or appropriate provider COMPARISON: None. FINDINGS: LINES AND TUBES: None. LUNGS AND PLEURA: There is airspace opacity in the right middle lobe with slight volume loss. Otherwise the lungs are clear. No pleural effusion. No pneumothorax. HEART, MEDIASTINUM AND BABAK: Heart is normal in size. Normal upper mediastinal and hilar contour. BONES AND SOFT TISSUES: No acute abnormality. IMPRESSION: Right middle lobe pneumonia. A Document Only message has been documented in the [employer] system Joe Ruby More MD on 05/02/2020 9:58 PM, Message ID [id number]. WSN: [id number] Ordering Physician: Gerry More MD Dictated By: Damian Rocha MD Dictated Date/Time: 05/02/20 9:58 pm Reviewed By: Damian Rocha MD Signed By: Damian Rocha MD Signed Date/Time: 05/02/20 9:58 pm Transcribed By: NORMA Transcribed Date/Time: 05/02/20 9:50 pm Vital Signs Most recent to oldest [Reference Range]: 1 2 3 Height 175 cm (05/04/20 11:28 AM) 175 cm (05/04/20 8:13 AM) 175 cm (05/03/20 7:30 PM) Weight 85.9 kg (05/03/20 2:19 AM) 85.9 kg (05/03/20 2:06 AM) Oxygen Saturation [94-100 %] 98 % (05/04/20 11:28 AM) 96 % (05/04/20 8:13 AM) 95 % (05/03/20 7:30 PM) Pulse Rate [55-90 bpm] 67 bpm (05/04/20 11:28 AM) 84 bpm (05/04/20 8:13 AM) 103 bpm *H* (05/03/20 7:30 PM) Body Mass Index [18.5-24.99] 28.05 *H* (05/03/20 2:06 AM) Blood Pressure [90-138/55-84 mm Hg] 159/109mm Hg *H* (05/04/20 11:28 AM) 153/98mm Hg *H* (05/03/20 7:30 PM) 151/93mm Hg *H* (05/03/20 6:46 PM) Respiratory Rate [16-30 br/min] 20 br/min (05/04/20 11:28 AM) 18 br/min (05/04/20 8:13 AM) 18 br/min (05/03/20 10:05 PM) Temperature [96.8-100.4 DegF] 98.1 DegF (05/04/20 11:28 AM) 98.0 DegF (05/04/20 8:13 AM) 98.0 DegF (05/03/20 7:30 PM) Liters per Minute 1 L/min (05/03/20 2:17 AM) 1 L/min (05/03/20 2:06 AM) Mode of Delivery (Oxygen) Room air (05/04/20 11:28 AM) Room air (05/04/20 8:13 AM) Room air (05/03/20 7:30 PM) Blood pressure sites Arm, right (05/03/20 7:30 PM) Arm, right (05/03/20 3:44 PM) Arm, right (05/03/20 11:21 AM) Temperature Route Oral (05/04/20 11:28 AM) Oral (05/04/20 8:13 AM) Oral (05/03/20 7:30 PM) Dry Weight 85.9 kg (05/03/20 2:06 AM) Weight Obtained Via Bed scale (05/03/20 2:19 AM) Social History Social History Type Response Smoking Status Never smoker entered on: 04/01/17 Sex
--- OUTSIDE RECORDS SUMMARY | 2023-09-12 18:25 | XMS_ITS | Continuity of Care Document ---
Author Organization [facility] Address [address] [place] [address]- Care Team Providers Care Septic Pump Truck Driver Name Role Phone Colby BRUMFIELD, Manny Valentine Primary Care Physicia n [facility] Date(s): 08/08/20 - 09/07/[address] [address]- Allergies, Adverse Reactions, Alerts Substance Reaction Severity [...] 0 Refills, Maintenance, 05/22/20 18:01:00 EDT, Gel, [facility], Partial fill upon patient request if the prescription is for a scheduleII opioid drug., 1 application Topically 2 times a... Start Date: 05/22/20 Stop Date: 05/27/20 Status: Ordered clobetasol 0.05% topical cream See Instructions, Please apply dialy to affected area, # 45 Gm, 1 Refills, Maintenance, 06/25/20 15:41:00 EDT, [facility]/pharmacy #[id number], Partial fill upon patient request if the prescription is for a schedule II opioid drug., Please apply dialy to affected... Start Date: 06/25/20 Status: Ordered metroNIDAZOLE 500 mg oral tablet 1 tablet = 500 mg, By Mouth, Every 12 hours, # 14 tablet, 0 Refills, Maintenance, 06/26/20 15:21:00EDT, Tablet, [facility]/pharmacy #[id number], Partial fill upon patient request if the prescription is for a schedule II opioid drug., 175, cm, 06/25/20 15:06:00 ED... Start Date: 06/26/20 Stop Date: 07/03/20 Status: Ordered ProAir HFA 90 mcg/inh inhalation aerosol 2 puffs, Inhalation, Every 4 hours, PRN Wheezing/Shortness of Breath, # 1 each, 5 Refills, Maintenance, 05/04/20 10:23:00 EST, Aerosol, [facility], Partial fill upon patient request if the prescription is for a schedule II opioid drug.,... Start Date: 05/04/20 Stop Date: 10/31/20 Status: Ordered Symbicort 80mcg/4.5mcg Inhaler 2, puffs, Inhalation, 2 times a day, # 30 each, Refills 0, Tot. Refills 0, Maintenance, 05/04/20 10:25:00 EST, Aerosol, Route to Pharmacy Electronically, [id number], [facility], 175, cm, 05/04/20 8:13:00 EST, He... Start Date: 05/04/20 Stop Date: 06/03/20 Status: Ordered Problem List Condition Effective Dates Status Health Status Inform ant Asthma(Confirmed) Active Constipation(Confirmed) Active Iron deficiency anemia(Confirmed) Active Care Management [facility] , Hailey Renteria CC [phone](Confirmed) Active Sickle cell trait(Confirmed) Active Social History Social History Type Response Smoking Status Never smoker entered on: 04/01/17 Sex
--- OUTSIDE RECORDS SUMMARY | 2023-09-12 18:25 | XMS_ITS | Continuity of Care Document ---
Author Organization [facility] Isauro jennifer Address [address] [place] [address] [address] [place] [address]- Care Team Providers Care Desk Representative Name Role Phone Manny Bowman NP Primary Care Physicia n [place] [facility] [place] 10/21/22 - 10/28/22 [facility] [address] [place] [address]- Attending Physician: Dawit Juarez MD Referring Physician: Manny Bowman NP Allergies, Adverse Reactions, Alerts No Known Allergies Immunizations Given and Recorded Vaccine Date Status Refusal Reason SARS-CoV-2 mRNA (llcgbwn-okyt-huvsj) vax 1 12/25/21 Recorded SARS-CoV-2 mRNA (jxpkxzn-bdop-zyvga) vax 09/03/21 Recorded SARS-CoV-2 mRNA (uygcxkp-dpjx-iucij) vax 08/12/21 Recorded influenza virus vaccine, inactivated [...] # 90 tablet, 0 Refills, [id number], 175, cm, 03/03/21 16:44:00 EST, Height, 84, kg, 03/01/21 15:38:00 EST, Dry Weight Start Date: 06/09/21 Status: Ordered ProAir HFA 90 mcg/inh inhalation aerosol 2 puffs, Inhalation, Every 4 hours, PRN Wheezing/Shortness of Breath, # 1 each, 5 Refills, Maintenance, 05/04/20 10:23:00 EST, Aerosol, [facility], Partial fill upon patient request if the prescription is for a schedule II opioid drug.,... Start Date: 05/04/20 Stop Date: 10/31/20 Status: Ordered Symbicort 80mcg/4.5mcg Inhaler 2, puffs, Inhalation, 2 times a day, # 30 each, Refills 0, Tot. Refills 0, Maintenance, 05/04/20 10:25:00 EST, Aerosol, Route to Pharmacy Electronically, [id number], [facility], 175, cm, 05/04/20 8:13:00 EST, He... Start Date: 05/04/20 Stop Date: 06/03/20 Status: Ordered Problem List Condition Confirmation Course Effective Dates Status Health St [facility] Informant Asthma Confirmed Active Constipation Confirmed Active Genital herpes Confirmed Active Hypertension Confirmed Active Iron deficiency anemia Confirmed Active [facility] Care Management [facility], Radha Medardo [phone] Confirmed Active Sickle cell trait Confirmed Active Vital Signs Most recent to oldest [Reference Range]: 1 Height 175 cm (10/21/22 4:20 PM) Weight 82 kg (10/21/22 4:20 PM) Body Mass Index [18.5-24.99 kg/m2] 26.78 kg/m2 *H* (10/21/22 4:20 PM) Social History Social History Type Response Smoking Status Never (less than 100 in lifetime) entered on: 03/01/21 Sex Patient Care team information Care Team Personnel Name: Davey Rojas RN Position: S RN Member Role: Primary Care Nurse Name: Manny Bowman NP Position: [facility] PCO Associate Professional Member Role: PCP Address: Address: [address] [place] [address]- Name: Verna Mireles RN Position: S RN Member Role: Primary Care Nurse Care Team Related Persons Name: LOI STEPHANIE Address: home UNKNOWN
--- OUTSIDE RECORDS SUMMARY | 2023-09-12 18:25 | XMS_ITS | Continuity of Care Document ---
Author Organization [facility] Address [address] [place] [address]- Care Team Providers Care Physiotherapist'S Assistant Name Role Phone Colby BRUMFIELD, Manny Valentine Primary Care Physicia n Encounter [facility] [id number] Date(s): 01/31/21 - 03/02/[address] [address]- Encounter Diagnosis Psychosis 298.9(Discharge Diagnosis) - 04/13/13 [...] 0 Refills, Maintenance, 05/22/20 18:01:00 EDT, Gel, [facility], Partial fill upon patient request if the prescription is for a scheduleII opioid drug., 1 application Topically 2 times a... Start Date: 05/22/20 Stop Date: 05/27/20 Status: Ordered clobetasol 0.05% topical cream See Instructions, Please apply dialy to affected area, # 45 Gm, 1 Refills, Maintenance, 06/25/20 15:41:00 EDT, [facility]/pharmacy #[id number], Partial fill upon patient request if the prescription is for a schedule II opioid drug., Please apply dialy to affected... Start Date: 06/25/20 Status: Ordered ferrous sulfate 325 mg oral tablet 1 tablet = 325 mg, By Mouth, Every other day, # 90 tablet, 0 Refills, Maintenance, 12/18/20 2:31:00EDT, Tablet, [facility]/pharmacy #[id number], Partial fill upon patient request if the prescription is for a schedule II opioid drug., 175, cm, 12/18/20 0:43:00 EDT... Start Date: 12/18/20 Status: Ordered metroNIDAZOLE 500 mg oral tablet 1 tablet = 500 mg, By Mouth, Every 12 hours, # 14 tablet, 0 Refills, Maintenance, 06/26/20 15:21:00EDT, Tablet, [facility]/pharmacy #[id number], Partial fill upon patient request if the prescription is for a schedule II opioid drug., 175, cm, 06/25/20 15:06:00 ED... Start Date: 06/26/20 Stop Date: 07/03/20 Status: Ordered ProAir HFA 90 mcg/inh inhalation aerosol 2 puffs, Inhalation, Every 4 hours, PRN Wheezing/Shortness of Breath, # 1 each, 5 Refills, Maintenance, 05/04/20 10:23:00 EST, Aerosol, [facility], Partial fill upon patient request if the prescription is for a schedule II opioid drug.,... Start Date: 05/04/20 Stop Date: 10/31/20 Status: Ordered Provera 10 mg oral tablet 20 mg, 2, tablet, By Mouth, 3 times a day, # 84 tablet, Refills 0, Tot. Refills 0, Maintenance, 12/18/20 2:30:00 EDT, Route to Pharmacy Electronically, [facility]/pharmacy #[id number], Partial fill upon patient request if the prescription is for a schedule II opio... Start Date: 12/18/20 Stop Date: 01/01/21 Status: Ordered Provera 10 mg oral tablet 10 mg, 1, tablet, By Mouth, 2 times a day, # 20 tablet, Refills 0, Tot. Refills 0, Maintenance, 12/02/20 15:53:00 EDT, Route to Pharmacy Electronically, [facility]/pharmacy #[id number], Partial fill upon patient request if the prescription is for a schedule II opi... Start Date: 12/02/20 Stop Date: 12/12/20 Status: Ordered Symbicort 80mcg/4.5mcg Inhaler 2, puffs, Inhalation, 2 times a day, # 30 each, Refills 0, Tot. Refills 0, Maintenance, 05/04/20 10:25:00 EST, Aerosol, Route to Pharmacy Electronically, [id number], [facility], 175, cm, 05/04/20 8:13:00 [place] SALE[facility]. Start Date: 05/04/20 Stop Date: 06/03/20 Status: Ordered Problem List Condition Effective Dates Status Health Status Inform ant Asthma(Confirmed) Active Constipation(Confirmed) Active Iron deficiency anemia(Confirmed) Active [facility] Care Management [facility] Radha [phone](Confirmed) Active Sickle cell trait(Confirmed) Active Vital Signs Most recent to oldest [Reference Range]: 1 Height 169.00 cm (02/16/08 11:36 AM) Social History Social History Type Response Smoking Status Never smoker entered on: 04/01/17 Sex
--- OUTSIDE RECORDS SUMMARY | 2023-09-12 18:25 | XMS_ITS | Continuity of Care Document ---
Author Organization [facility] Address [address] [place] [address]- Care Team Providers Care Contractor General Engineering Name Role Phone Colby BRUMFIELD, Manny Valentine Primary Care Physicia n [place] [facility] [place] [facility] [id number] Date(s): 06/17/23 - 07/17/[address] [address]- [place] Encounter Diagnosis Psychosis 298.9(Discharge Diagnosis) - 04/13/13 Attending Physician: Admtr, Nando Allergies, Adverse Reactions, Alerts No Known Allergies Immunizations Given and Recorded Vaccine Date Status Refusal Reason SARS-CoV-2 mRNA (coileup-ekqp-wfmou) vax 1 12/25/21 Recorded SARS-CoV-2 mRNA (rhnyinj-kwvh-tgnnz) vax 09/03/21 Recorded SARS-CoV-2 mRNA (inzzibb-gqds-lkcgu) vax 08/12/21 Recorded influenza virus vaccine, inactivated [...] # 90 tablet, 0 Refills, [id number], 175, cm, 03/03/21 16:44:00 EST, Height, 84, kg, 03/01/21 15:38:00 EST, Dry Weight Start Date: 06/09/21 Status: Ordered ProAir HFA 90 mcg/inh inhalation aerosol 2 puffs, Inhalation, Every 4 hours, PRN Wheezing/Shortness of Breath, # 1 each, 5 Refills, Maintenance, 05/04/20 10:23:00 EST, Aerosol, [facility], Partial fill upon patient request if the prescription is for a schedule II opioid drug.,... Start Date: 05/04/20 Stop Date: 10/31/20 Status: Ordered Symbicort 80mcg/4.5mcg Inhaler 2, puffs, Inhalation, 2 times a day, # 30 each, Refills 0, Tot. Refills 0, Maintenance, 05/04/20 10:25:00 EST, Aerosol, Route to Pharmacy Electronically, [id number], [facility], 175, cm, 05/04/20 8:13:00 EST, He... Start Date: 05/04/20 Stop Date: 06/03/20 Status: Ordered Problem List Condition Confirmation Course Effective Dates Status Health St [facility] Informant Asthma Confirmed Active Constipation Confirmed Active Genital herpes Confirmed Active Hypertension Confirmed Active Iron deficiency anemia Confirmed Active N Care Management [facility] Radha Medardo [phone] Confirmed Active Sickle cell trait Confirmed Active Vital Signs Most recent to oldest [Reference Range]: 1 Height 169.00 cm (02/16/08 11:36 AM) Social History Social History Type Response Smoking Status Never (less than 100 in lifetime) entered on: 03/01/21 Sex Radiology * Event Display: Non Radiology Results Authored Date: [id number] Patient Care team information Care Team Personnel Name: Davey Rojas RN Position: [facility] RN Member Role: Primary Care Nurse Name: Manny Bowman NP Position: [facility] PCO Associate Professional Member Role: PCP Address: Address: [address] [place] [id number] Name: Verna Mireles RN Position: [facility] RN Member Role: Primary Care Nurse Care Team Related Persons Name: STEPHANIE MONSIVAIS Address: home UNKNOWN
--- OUTSIDE RECORDS SUMMARY | 2023-09-12 18:25 | XMS_ITS | Continuity of Care Document ---
Author Organization [facility] Address [address] [place] [address]- Care Team Providers Care Front Desk Auxiliary Name Role Phone Colby BRUMFIELD, Manny Valentine Primary Care Physicia n [facility] Date[facility]s): 12/02/20 - 01/01/[address] [address]- Allergies, Adverse Reactions, Alerts Substance Reaction Severity [...] 05/22/20 18:01:00 EDT, Gel, [facility], Partial fill upon patient request if the prescription is for a scheduleII opioid drug., 1 application Topically 2 times a... Start Date: 05/22/20 Stop Date: 05/27/20 Status: Ordered clobetasol 0.05% topical cream See Instructions, Please apply dialy to affected area, # 45 Gm, 1 Refills, Maintenance, 06/25/20 15:41:00 EDT, [facility]/pharmacy #[id number], Partial fill upon patient request if the prescription is for a schedule II opioid drug., Please apply dialy to affected... Start Date: 06/25/20 Status: Ordered ferrous sulfate 325 mg oral tablet 1 tablet = 325 mg, By Mouth, Every other day, # 90 tablet, 0 Refills, Maintenance, 12/18/20 2:31:00EDT, Tablet, [facility]/pharmacy #[id number], Partial fill upon patient request if the prescription is for a schedule II opioid drug., 175, cm, 12/18/20 0:43:00 EDT... Start Date: 12/18/20 Status: Ordered metroNIDAZOLE 500 mg oral tablet 1 tablet = 500 mg, By Mouth, Every 12 hours, # 14 tablet, 0 Refills, Maintenance, 06/26/20 15:21:00EDT, Tablet, [facility]/pharmacy #[id number], Partial fill upon patient request if the prescription is for a schedule II opioid drug., 175, cm, 06/25/20 15:06:00 ED... Start Date: 06/26/20 Stop Date: 07/03/20 Status: Ordered ProAir HFA 90 mcg/inh inhalation aerosol 2 puffs, Inhalation, Every 4 hours, PRN Wheezing/Shortness of Breath, # 1 each, 5 Refills, Maintenance, 05/04/20 10:23:00 EST, Aerosol, [facility], Partial fill upon patient request if the prescription is for a schedule II opioid drug.,... Start Date: 05/04/20 Stop Date: 10/31/20 Status: Ordered Provera 10 mg oral tablet 20 mg, 2, tablet, By Mouth, 3 times a day, # 84 tablet, Refills 0, Tot. Refills 0, Maintenance, 12/18/20 2:30:00 EDT, Route to Pharmacy Electronically, [facility]/pharmacy #[id number], Partial fill upon patient request if the prescription is for a schedule II opio... Start Date: 12/18/20 Stop Date: 01/01/21 Status: Ordered Provera 10 mg oral tablet 10 mg, 1, tablet, By Mouth, 2 times a day, # 20 tablet, Refills 0, Tot. Refills 0, Maintenance, 12/02/20 15:53:00 EDT, Route to Pharmacy Electronically, [facility]/pharmacy #[id number], Partial fill upon patient request if the prescription is for a schedule II opi... Start Date: 12/02/20 Stop Date: 12/12/20 Status: Ordered Symbicort 80mcg/4.5mcg Inhaler 2, puffs, Inhalation, 2 times a day, # 30 each, Refills 0, Tot. Refills 0, Maintenance, 05/04/20 10:25:00 EST, Aerosol, Route to Pharmacy Electronically, [id number], [facility], 175, cm, 05/04/20 8:13:00 [place] [facility] Start Date: 05/04/20 Stop Date: 06/03/20 Status: Ordered Problem List Condition Effective Dates Status Health Status Inform ant Asthma(Confirmed) Active Constipation(Confirmed) Active Iron deficiency anemia(Confirmed) Active Sickle cell trait(Confirmed) Active Social History Social History Type Response Smoking Status Never smoker entered on: 04/01/17 Sex
[2023-09-12 18:30] LABS: HCG Quantitative < 2 mIU/mL
--- NOTE | 2023-09-12 18:31 | ED_ITS ---
HPI - General Adult General Chief complaint: General Medical Stated complaint: body pain and coughing blood Time Seen by Provider: 09/12/23 17:34 Source: patient Mode of arrival: ambulatory Limitations: no limitations History of Present Illness ED Provider: Fredo Jane PA-C HPI narrative: 32-year-old female history of chlamydia presents to the ED for coughing fever, night sweats, slight specks of blood when coughing without any chest pain or shortness of breath. Patient states had sick with same partner give her chlamydia month ago. Patient denies any vaginal lesions. Related Data Previous Rx's ?Medication ?Instructions ?Recorded benzonatate 200 mg capsule 200 mg PO TID PRN cough 5 days #15 09/12/23 caps doxycycline hyclate 100 mg tablet 100 mg PO BID 7 days #14 tabs 09/12/23 Allergies Allergy/AdvReac Type Severity Reaction Status Date / Time No Known Allergies Allergy Verified 09/12/23 16:44 [No Known Allergies*] Review of Systems 2 Review of Systems: vaginal quan discharge, coughig, nightsweats and chills Yes all other systems are reviewed and are negative PMFSH Social History Social History Advance Directives: No Advance Directives Information Provided: No Do you have a plan to hurt others: No Plan Physical Exam ED Vital Signs: Vital Signs - 24 hr 09/12/23 16:38 Temperature 100.3 F Pulse Rate 100 Respiratory Rate 18 Blood Pressure 168/103 H Pulse Oximetry 97 Oxygen Delivery Method Room Air BMI result Body Mass Index 31.4 Const General: cooperative, healthy appearing, comfortable, no acute distress, well developed, alert, awake and Physically active Orientation/consciousness: patient oriented x3 HENMT Head: Yes normal to inspection, Yes No palpable skull fracture present, Yes normocephalic, Yes atraumatic and No abrasion Eyes General: appearance normal, both eyes and all related structures Neck Neck: Yes normal visual inspection, Yes full ROM, Yes no lymphadenopathy, Yes no meningeal signs, Yes trachea midline, Yes supple, No anterior neck swelling and No tender Chest Chest palpation & inspection: normal inspection of the chest and normal palpation of entire chest wall Resp Effort & Inspection: normal respiratory effort and able to speak in complete sentences Auscultation: clear to auscultation bilaterally Cardio Jugular venous distension: no JVD Heart sounds: S1 normal heart sound present and S2 normal heart sound present GI Inspection: Yes normal to inspection Palpation (GI): Soft to palpation, not firm, nontender, no guarding and not rigid General: No CVA tenderness and Yes no CVA tenderness Back/Spine/Pelvis Back: no CVA tenderness, No CVA tenderness and No back tenderness Skin General skin exam: no rashes or lesions noted, elasticity normal and turgor normal Neuro General: patient oriented x3, gait normal, tone normal, moves all extremities, Normal light touch and pain sensation, no meningeal signs, no focal motor deficits, CN's II-XI intact bilaterally and normal sensation to monofilament Extrem General: Yes normal to inspection, Yes full ROM and Yes capillary refill normal Psych Appearance: grossly normal, well kempt and not disheveled Medications Administered Discontinued Medications Generic Name Dose Route Start Last Admin Trade Name Melchorq PRN Reason Stop Dose Admin Ceftriaxone Sodium 500 mg/ 0 mg 09/12/23 19:05 09/12/23 19:59 Lidocaine HCl 1 ml IM 09/12/23 19:06 500 kit ONCE ONE Administration Ketorolac Tromethamine 30 mg 09/12/23 19:45 09/12/23 19:59 Ketorolac Tromethamine 30 Mg/Ml Vial IM 09/12/23 19:46 30 mg ONCE ONE Administration Medical Decision Making Medical Decision Making [facility] Narrative: 32-year-old female presents to ED for coughing, body aches, chills, night sweats, and vaginal discharge. Patient admits to recent unprotected sex. Patient refused pelvic exam. Patient does not want swabs for trich or BV. Patient agreeable to be treated empirically for chlamydia gonorrhea. Lungs are clear no need for x-ray. 7:24pm: Patient to be discharged with doxycycline and cough medication. Patient does not want pelvic exam on be tested for trich or BV. No indication for x-ray. Lungs are clear. Patient has positive COVID. Patient explained worrisome signs and informed to return to the ED immediately. Not suspecting pulmonary embolus or pneumonia. Not suspecting tubo-ovarian abscess or torsion. Differential Diagnosis Differential Diagnoses: The differential diagnosis associated with the presentation includes ( COVID, RSV, influenza, chlamydia, gonorrhea) Admission/Observation Consideration of admission/observation: Escalation of care including admission/observation considered Lab Data [facility] Lab Attestation statement: I reviewed the patient's lab results. 09/12/23 17:05 09/12/23 17:05 Labs: Lab Results 09/12/23 09/12/23 Range/Units 17:05 19:05 WBC 7.2 (4.8-10.8) X10*3/uL RBC 5.88 H (4.20-5.50) X10*6/uL Hgb 11.0 L (12.0-16.0) g/dl Hct 34.9 L (37.0-47.0) % MCV 59.4 L (80.0-98.0) fL MCH 18.7 L (27.0-33.0) pg MCHC 31.5 (31.0-35.0) g/dl RDW 19.9 H (11.0-16.0) % Plt Count 336 (160-400) X10*3/uL MPV 9.6 (9.4-12.3) fL Immature Gran % (Auto) 0.4 (0.0-0.4) % Neut % (Auto) 70.1 (45-73) % Lymph % (Auto) 13.8 L (20-40) % [place] % (Auto) 14.8 H (2-11) % Eos % (Auto) 0.3 (0-4) % Baso % (Auto) 0.6 (0-2) % Lymph # (Auto) 1.0 L (1.2-4.9) X10*3/uL [place] # (Auto) 1.1 (0.1-1.2) X10*3/uL Eos # (Auto) 0.0 (0.0-0.4) X10*3/uL Baso # (Auto) 0.0 (0.0-0.2) X10*3/uL Abs Immat Gran (auto) 0.03 (0.00-0.03) X10*3/uL Absolute Neuts (auto) 5.0 (2.0-8.3) x10*3/uL Absolute Nucleated RBC 0.000 (0.0-0.012) X10*3/uL Nucleated RBC % (auto) 0.0 (0.0-0.2) /100WBC Sodium 138 (135-145) mmol/L Potassium 3.3 (3.3-5.1) mmol/L Chloride 106 (96-108) mmol/L Carbon Dioxide 22 (22-29) mmol/L Anion Gap 13 (12-20) BUN 6 L (9-16) mg/dL Creatinine 0.82 (0.5-1.4) mg/dL Estim Creat Clear Calc 121.8 Estimated GFR > 60 Random Glucose 108 (60-115) mg/dL Calcium 8.9 (8.4-10.2) mg/dL Total Bilirubin 0.3 (0.0-1.0) mg/dL Direct Bilirubin 0.1 (0.0-0.5) mg/dL AST 17 (5-31) U/L ALT 12 (0-31) U/L Alkaline Phosphatase 78 (39-117) U/L Total Protein 7.1 (6.5-8.0) g/dL Albumin 4.0 (3.5-5.0) g/dL Lipase 20 (8-78) U/L Beta HCG, Quant < 2 mIU/mL Urine Color Yellow Urine Appearance Clear Urine pH 5.5 (5.0-9.0) Ur Specific [place] 1.025 (1.005-1.025) Urine Protein Trace (Neg-Trace) mg/dL Urine Glucose (UA) Negative (Negative) mg/dL Urine Ketones Negative (Negative) mg/dL Urine Blood Negative (Negative) Urine Nitrite Negative (Negative) Ur Leukocyte Esterase Negative (Negative) Urine Test NEGATIVE (NEGATIVE) Influenza Type A (PCR) NEGATIVE (Negative) Influenza Type B (PCR) NEGATIVE (Negative) RSV RNA Qual (PCR) NEGATIVE (Negative) SARS-CoV-2 RNA (RT-PCR) POSITIVE A (Negative) S. pyogenes GrpA PETER Negative (Negative) Independent Historian Clinical information obtained from an independent historian. History obtained from or confirmed by: Other ( patient's ) External Record Review External record reviewed: Other ( prior visits) Prescription Management I considered prescription management with: Antibiotic Discharge Plan Discharge Clinical Impression: COVID-19, Vaginal discharge Patient Disposition: Home, Self-Care Instructions: Vaginal Discharge (ED), COVID-19 (Coronavirus Disease 2019) (ED) Additional Instructions: he tested positive for COVID. Recommend rest, drinking plenty of fluids and monitor your oxygen level with portable O2 pulse ox. Oxygen dipped below 94% return to the ED immediately. Return to the ED for about abdominal pain, chest pain, shortness of breath, weakness, dizziness, flank pain, vaginal bleeding, profuse vaginal discharge, or any other concerning symptoms. Prescriptions: New doxycycline hyclate 100 mg tablet 100 mg PO BID 7 Days Qty: 14 0RF benzonatate 200 mg capsule 200 mg PO TID PRN (Reason: cough) 5 Days Qty: 15 0RF Stand Alone Forms: Work/School Release Print Language: Barbadian
[2023-09-12 19:14] LABS: Appearance Urine Clear; Color Urine Yellow; Glucose Urine UA Negative (Negative); Leukocyte Esterase Urine Negative (Negative); Nitrite Urine Negative (Negative); PH 5.5 (5.0-9.0); Specific Gravity - Urine 1.025 (1.005-1.025); Urine Blood Negative (Negative); Urine Ketones Negative (Negative); Urine Protein Trace mg/dL (Neg-Trace)
[2023-09-12 19:16] LABS: UPreg QC Valid YES; Urine Pregnancy NEGATIVE (NEGATIVE)
[2023-09-12] MEDS: Ketorolac Tromethamine 30 MG/ML VIAL IM (19:59)
[2023-09-12] MEDS: cefTRIAXone sodium 500 MG, Lidocaine HCl 1 % MPF 1 ML IM (19:59)
[2023-09-12 20:10] VITALS: BP 168/103; PULSE 100; RESP 18; TEMP 37.9; O2SAT 97
[2023-09-13 01:19] LABS: CT PCR NOT DETECTED (Not Detect.); NG PCR NOT DETECTED (Not Detect.)
== END 2023-09-12 20:12 | disposition home or self-care (01) ==
PROVIDERS: Physician Assistant; Emergency Provider Emergency Medicine Emergency Medical Services
DX: U07.1 COVID-19 (principal); N89.8 Other specified noninflammatory disorders of vagina; R05.9 Cough, unspecified; R50.9 Fever, unspecified; R61 Generalized hyperhidrosis
CPT/HCPCS: 0241U; 80048; 80076; 81003; 81025; 83690; 84702; 85025; 87491; 87591; 87651; 96372; 99283; 99284; J0696; J1885

== ENCOUNTER 2024-02-14 23:37 | Emergency (ER) | payer OTHER, SELFPAY ==
--- NOTE | ~2024-02-14 | XR_ITS ---
EXAMINATION: XR CHEST CLINICAL INFORMATION: cough COMPARISON: None available. TECHNIQUE: Frontal view of the chest was obtained. FINDINGS: Normal appearance of the cardiomediastinal structures. No effusions or pneumothoraces. Normal pattern of pulmonary vasculature. No focal pulmonary consolidation. XR/XR chest 1V IMPRESSION: Normal chest. Lungs clear. Electronically signed by: Afshin Aguayo MD 02/15/2024 02:06 AM THERESE
[2024-02-15 00:07] VITALS: BP 172/92; PULSE 69; RESP 16; TEMP 37; O2SAT 96; BMI 29.5
[2024-02-15 01:36] LABS: MANUAL DIFF FLAG NO
[2024-02-15 01:44] LABS: Basophils Absolute Auto 0.1 X10*3/uL (0.0-0.2); Basophils Percent Auto 0.6 % (0-2); Eosinophils Absolute Auto 0.3 X10*3/uL (0.0-0.4); Eosinophils Percent Auto 2.5 % (0-4); Hematocrit 31.6 % (37.0-47.0); Hemoglobin 9.3 g/dl (12.0-16.0); Imm Gran Abs Auto 0.04 X10*3/uL (0.00-0.03); Imm Gran Pct Auto 0.3 % (0.0-0.4); Lymphocytes Absolute Auto 2.9 X10*3/uL (1.2-4.9); Lymphocytes Percent Auto 23.9 % (20-40); Mean Corpuscular HGB Conc 29.4 g/dl (31.0-35.0); Mean Corpuscular Hemoglobin 17.1 pg (27.0-33.0); Mean Corpuscular Volume 58.1 fL (80.0-98.0); Mean Platelet Volume 9.6 fL (9.4-12.3); Monocytes Absolute Auto 0.8 X10*3/uL (0.1-1.2); Monocytes Percent Auto 6.9 % (2-11); Neutrophils Absolute Auto 8.1 x10*3/uL (2.0-8.3); Neutrophils Percent Auto 65.8 % (45-73); Platelet Count 359 X10*3/uL (160-400); Red Blood Count 5.44 X10*6/uL (4.20-5.50); Red Cell Distribution Width 20.6 % (11.0-16.0); White Blood Count 12.3 X10*3/uL (4.8-10.8)
[2024-02-15 01:45] LABS: IDNOW Serial# 08D9AD1C; Strep A Nucleic Acid Negative (Negative)
[2024-02-15 01:58] LABS: Albumin Level 3.8 g/dL (3.5-5.0); Anion Gap 13 (12-20); Aspartate Amino Transferase 14 U/L (5-31); Bilirubin Total 0.3 mg/dL (0.0-1.0); Blood Urea Nitrogen 9 mg/dL (9-16); Calcium 8.7 mg/dL (8.4-10.2); Carbon Dioxide 23 mmol/L (22-29); Chloride 106 mmol/L (96-108); Creatinine Clr Calc Pharmacy 126.3; Estimated Glomerular Filt Rate > 60; Glucose Random 99 mg/dL (60-115); Potassium 3.3 mmol/L (3.3-5.1); Sodium 139 mmol/L (135-145); Total Protein 6.7 g/dL (6.5-8.0)
[2024-02-15 02:21] LABS: Influenza A PCR NEGATIVE (Negative); Influenza B PCR NEGATIVE (Negative); Resp Syncy Virus RNA Qual PCR NEGATIVE (Negative); SARS COV2 PCR INHOUSE NEGATIVE (Negative)
[2024-02-15 02:45] LABS: Alanine Aminotransferase 11 U/L (0-31); Alkaline Phosphatase 66 U/L (39-117)
[2024-02-15 02:54] VITALS: BP 164/89; PULSE 73; RESP 16; TEMP 37.2; O2SAT 95
--- NOTE | 2024-02-15 04:06 | ED.GENADULT ---
HPI - General Adult General Chief complaint: General Medical Stated complaint: throat pain Time Seen by Provider: 02/15/24 04:06 History of Present Illness ED Provider: Shonna HUFFMAN narrative: The patient is a 33-year-old female who says she has been feeling unwell for about 5 days. She has had cough, body aches, headache, and sore throat. She does not know if she has had a definite fever. She does not think it is likely she might be . Related Data Previous Rx's ?Medication ?Instructions ?Recorded benzonatate 200 mg capsule 200 mg PO TID PRN cough 5 days #15 09/12/23 caps doxycycline hyclate 100 mg tablet 100 mg PO BID 7 days #14 tabs 09/12/23 doxycycline monohydrate 100 mg 100 mg PO BID 7 days #14 caps 02/15/24 capsule Allergies Allergy/AdvReac Type Severity Reaction Status Date / Time No Known Allergies Allergy Verified 02/15/24 00:10 [No Known Allergies*] Review of Systems Review of Systems: Yes all other systems are reviewed and are negative [facility] Social History Social History Advance Directives: No Advance Directives Information Provided: Yes Do you have a plan to hurt others: No Plan Physical Exam ED Vital Signs: Vital Signs - 24 hr 02/15/24 00:07 02/15/24 02:54 Temperature 98.6 F 98.9 F Pulse Rate 69 73 Respiratory Rate 16 16 Blood Pressure 172/92 H 164/89 H Pulse Oximetry 96 95 Oxygen Delivery Method Room Air Room Air BMI result Body Mass Index 29.5 Const Other: The patient is awake and alert. She was coughing occasionally but did not seem in acute distress otherwise. HENMT Other: Face is symmetrical. Mucous membranes moist. The posterior pharynx is unremarkable. Eyes General: appearance normal, both eyes and all related structures Neck Neck: Yes full ROM and Yes no lymphadenopathy Resp Effort & Inspection: normal respiratory effort Auscultation: clear to auscultation bilaterally Cardio Rate: regular rate Rhythm: regular rhythm Heart sounds: S1 normal heart sound present and S2 normal heart sound present GI Other: abdomen is soft nontender Skin Other: skin is dry and unremarkable Neuro Other: the patient is awake and alert with normal mental status. Cranial nerves are grossly intact. She was her extremities normally. She is grossly neurologically intact. Extrem Other: No calf swelling or tenderness, no peripheral edema. Medications Administered Discontinued Medications Generic Name Dose Route Start Last Admin Trade Name Freq PRN Reason Stop Dose Admin Doxycycline Monohydrate 100 mg 02/15/24 04:19 02/15/24 04:27 Doxycycline Monohydrate 100 Mg Capsule PO 02/15/24 04:20 100 mg ONCE ONE Administration Medical Decision Making Medical Decision Making [facility] Narrative: The patient is a 33-year-old female who has been sick for about 5 days with respiratory symptoms. Labs and a chest x-ray had been ordered at triage. She has a white count of 12.5. Her chest x-ray was negative. I do not really hear much in the way of wheezing on her exam. This may be a case of an acute bronchitis or possibly an acute atypical pneumonia. The patient was advised that antibiotics may not be very helpful. She would very much like to go on antibiotics. She will be prescribed doxycycline in case this is some kind of an occult atypical pneumonia. Lab Data 02/15/24 01:32 02/15/24 01:32 Labs: Lab Results 02/15/24 Range/Units 01:32 WBC 12.3 H (4.8-10.8) X10*3/uL RBC 5.44 (4.20-5.50) X10*6/uL Hgb 9.3 L (12.0-16.0) g/dl Hct 31.6 L (37.0-47.0) % MCV 58.1 L (80.0-98.0) fL MCH 17.1 L (27.0-33.0) pg MCHC 29.4 L (31.0-35.0) g/dl RDW 20.6 H (11.0-16.0) % Plt Count 359 (160-400) X10*3/uL MPV 9.6 (9.4-12.3) fL Immature Gran % (Auto) 0.3 (0.0-0.4) % Neut % (Auto) 65.8 (45-73) % Lymph % (Auto) 23.9 (20-40) % [place] % (Auto) 6.9 (2-11) % Eos % (Auto) 2.5 (0-4) % Baso % (Auto) 0.6 (0-2) % Lymph # (Auto) 2.9 (1.2-4.9) X10*3/uL [place] # (Auto) 0.8 (0.1-1.2) X10*3/uL Eos # (Auto) 0.3 (0.0-0.4) X10*3/uL Baso # (Auto) 0.1 (0.0-0.2) X10*3/uL Abs Immat Gran (auto) 0.04 H (0.00-0.03) X10*3/uL Absolute Neuts (auto) 8.1 (2.0-8.3) x10*3/uL Absolute Nucleated RBC 0.000 (0.0-0.012) X10*3/uL Nucleated RBC % (auto) 0.0 (0.0-0.2) /100WBC Sodium 139 (135-145) mmol/L Potassium 3.3 (3.3-5.1) mmol/L Chloride 106 (96-108) mmol/L Carbon Dioxide 23 (22-29) mmol/L Anion Gap 13 (12-20) BUN 9 (9-16) mg/dL Creatinine 0.76 (0.5-1.4) mg/dL Estim Creat Clear Calc 126.3 Estimated GFR > 60 Random Glucose 99 (60-115) mg/dL Calcium 8.7 (8.4-10.2) mg/dL Total Bilirubin 0.3 (0.0-1.0) mg/dL AST 14 (5-31) U/L ALT 11 (0-31) U/L Alkaline Phosphatase 66 (39-117) U/L Total Protein 6.7 (6.5-8.0) g/dL Albumin 3.8 (3.5-5.0) g/dL Influenza Type A (PCR) NEGATIVE (Negative) Influenza Type B (PCR) NEGATIVE (Negative) RSV RNA Qual (PCR) NEGATIVE (Negative) SARS-CoV-2 RNA (RT-PCR) NEGATIVE (Negative) S. pyogenes GrpA PETER Negative (Negative) Discharge Plan Discharge Clinical Impression: Acute bronchitis Patient Disposition: Home, Self-Care Instructions: Acute Bronchitis (ED) Additional Instructions: You have tested negative for strep throat. You have also tested negative for COVID, influenza, and RSV. Your chest x-ray does not show any sign of pneumonia. Although it is possible your symptoms are entirely related to a viral infection it is not impossible that there might be some kind of bacterial component to your symptoms. You have been started on an antibiotic called doxycycline. Please take this 2 times a day. Drink lot of fluids when you take the pills. Please make a follow up appointment with your regular doctor's office. Return to the emergency room if worse. Prescriptions: New doxycycline monohydrate 100 mg capsule 100 mg PO BID 7 Days Qty: 14 0RF No Action doxycycline hyclate 100 mg tablet 100 mg PO BID 7 Days Qty: 14 0RF benzonatate 200 mg capsule 200 mg PO TID PRN (Reason: cough) 5 Days Qty: 15 0RF Referrals: [facility] [Provider Group] (Viral bronchitis) Interventions: ED Discharge Assessment Last Done: 02/15/24 04:41 Discharge Date/Time: 02/15/24 04:41 Print Language: Ethiopian
[2024-02-15] MEDS: Doxycycline Monohydrate 100 MG CAPSULE PO (04:27)
[2024-02-15 04:41] VITALS: BP 164/89; PULSE 73; RESP 16; TEMP 37.2; O2SAT 95
== END 2024-02-15 04:41 | disposition home or self-care (01) ==
PROVIDERS: Emergency Provider Emergency Medicine
DX: J40 Bronchitis, not specified as acute or chronic (principal); R07.9 Chest pain, unspecified; R51.9 Headache, unspecified; J02.9 Acute pharyngitis, unspecified; Z03.818 Encounter for observation for suspected exposure to other biological agents ruled out
CPT/HCPCS: 0241U; 71045; 80053; 85025; 87651; 99283

== ENCOUNTER 2024-07-15 00:45 | Emergency (ER) | payer OTHER, SELFPAY ==
--- NOTE | ~2024-07-15 | XR_ITS ---
CLINICAL HISTORY: pain post injury 4 view left hand Comparison: None Findings: Bones intact. No dislocations. No significant loss of joint space or osteophytes. No erosions. No radiopaque foreign body. Mildly diffuse soft tissue swelling. IMPRESSION: 1. No acute fracture This document has been electronically signed by: Ar Green MD on 07/15/2024 02:23:43
[2024-07-15 00:49] VITALS: BP 178/116; PULSE 76; RESP 16; TEMP 36.6; O2SAT 100; BMI 31.0
--- NOTE | 2024-07-15 01:43 | ED.EXTPRO ---
HPI - Extremity Problem General Chief complaint: Extremity Injury, Upper Stated complaint: swollen hand Time Seen by Provider: 07/15/24 01:42 Source: patient Mode of arrival: ambulatory Limitations: no limitations History of Present Illness ED Provider: HPI Narrative: Patient complaining of pain in the left hand middle finger with cold feeling for last 4 days was seen at [facility] yesterday had a detailed workup including CT scan which was negative patient is supposed to follow up with vascular surgeon next week and advised to take the hypertension medication but patient refused patient does have hypertension but does not want to take the medication Related Data Previous Rx's ?Medication ?Instructions ?Recorded aspirin 81 mg tablet,delayed 81 mg PO DAILY #90 tabs 07/15/24 release (Adult Low Dose Aspirin) Allergies Allergy/AdvReac Type Severity Reaction Status Date / Time No Known Allergies Allergy Verified 07/15/24 00:50 Review of Systems Review of Systems: Yes all other systems are reviewed and are negative [facility] Social History Social History Alcohol intake: current Alcohol intake frequency: holidays/special occasions only Smoked in Last 30 Days: No Use of substances other than those prescribed or required for medical reasons: No Advance Directives: No Advance Directives Information Provided: Yes Do you have a plan to hurt others: No Plan Patient : No Physical Exam Vital Signs: Vital Signs: Last Vital Signs Temp 98.0 F 07/15/24 01:46 Pulse 77 07/15/24 01:46 Resp 16 07/15/24 01:46 BP 185/115 H 07/15/24 01:46 Pulse Ox 100 07/15/24 01:46 O2 Del Method Room Air 07/15/24 01:46 BMI result Body Mass Index 31.0 Appearance: Alert. Oriented X3. No acute distress. Eyes: PERRLA, No Nystagmus ENT: Pharynx normal. Oral Mucosa moist Neck: Normal inspection. Neck supple. CVS: Normal heart rate and rhythm. Pulses normal. Respiratory: No respiratory distress. Equal air entry bilateral, no wheezing/rales/rhonchi Abdomen: Soft and nontender. Bowel sounds are present, no mass palpable, no CVA tenderness Skin: Skin warm and dry. Normal skin color. Normal skin turgor. Extremities: No lower extremity edema. No calf tenderness left hand middle finger slightly colder with decreased capillary refill neurovascular intact radial pulses 2+ sensation intact Neuro: Oriented X 3. No motor deficit. No sensory deficit.No cerebellar signs , cranial nerves II-XII intact Medications Administered Discontinued Medications Generic Name Dose Route Start Last Admin Trade Name Faisal PRN Reason Stop Dose Admin Amlodipine Besylate 10 mg 07/15/24 02:09 07/15/24 02:50 Amlodipine Besylate 10 Mg Tablet PO 07/15/24 02:10 Not Given ONCE ONE Protocol Aspirin 325 mg 07/15/24 02:09 07/15/24 02:19 Aspirin Enteric Coated 325 Mg Tablet. PO 07/15/24 02:10 325 mg ONCE ONE Administration Medical Decision Making Medical Decision Making [facility] Narrative: Patient clinically with Raynaud's phenomena with uncontrolled hypotension patient has had a detailed workup done at [facility] 2 days ago and she supposed to follow with vascular surgeon next week advised to take the blood pressure medication but patient refused advised patient's take baby aspirin at least and follow with vascular surgeon as scheduled Independent Interpretation I performed an independent interpretation of an: Plain X-Ray Interpretation: nad Discharge Plan Discharge Clinical Impression: Peripheral vascular disease of extremity, Hypertension Patient Disposition: Home, Self-Care Instructions: Peripheral Vascular Disease (ED), Chronic Hypertension (ED) Additional Instructions: Take baby aspirin daily You need to be on blood pressure medication but you have refused to take it Elevated blood pressure could be life-threatening and could be causing the spasm of the blood vessels of the left hand You have decided to signed against medical advice Prescriptions: New aspirin [Adult Low Dose Aspirin] 81 mg tablet,delayed release (DR/EC) 81 mg PO DAILY Qty: 90 0RF Stand Alone Forms: Against Medical Advice Print Language: Danish
[2024-07-15 01:46] VITALS: BP 185/115; PULSE 77; RESP 16; TEMP 36.7; O2SAT 100
[2024-07-15] MEDS: Aspirin Enteric Coated 325 MG TABLET.DR PO (02:19)
--- NOTE | 2024-07-15 02:54 | PC.NURSE ---
Addendum entered by Silvia Lira 07/15/24 03:14: BP 199/126, Pt declined medication. Pt informed of risks and Pt left AMA. Original Note: Pt states I am not taking no blood pressure medication because once I know I will never come off of it, I manage my own blood pressure. Dr. Cano aware. Teaching done about medication and its use, Pt continues to refuse.
[2024-07-15] MEDS: Ibuprofen 600 MG TABLET PO (03:04)
[2024-07-15 03:09] VITALS: BP 199/126; PULSE 66; RESP 20; TEMP 36.6; O2SAT 96
[2024-07-15 03:17] VITALS: BP 199/126; PULSE 66; RESP 20; TEMP 36.6; O2SAT 96
== END 2024-07-15 03:18 | disposition home or self-care (01) ==
PROVIDERS: Emergency Provider Internal Medicine
DX: I73.9 Peripheral vascular disease, unspecified (principal); I73.00 Raynaud's syndrome without gangrene; M79.642 Pain in left hand; I95.9 Hypotension, unspecified
CPT/HCPCS: 73130; 99283; 99284

== ENCOUNTER → 2024-07-15 00:59 | Outpatient (BNV) | payer OTHER, SELFPAY | PROVIDERS: Emergency Provider Internal Medicine; Visit Provider Radiology Diagnostic Radiology | DX: R22.32 Localized swelling, mass and lump, left upper limb (principal) | CPT/HCPCS: 73130 ==